=== PATIENT | female | born 1950 | race Caucasian/White ===

== ENCOUNTER → 2020-02-06 15:51 | Outpatient (BNVA) | payer MEDICARE, SELFPAY | PROVIDERS: Visit Provider Hospitalist | DX: J42 Unspecified chronic bronchitis (principal); K21.9 Gastro-esophageal reflux disease without esophagitis; R05 Cough; J45.909 Unspecified asthma, uncomplicated | CPT/HCPCS: 99212 ==

== ENCOUNTER → 2020-04-11 15:41 | Outpatient (BNVA) | payer MEDICARE, SELFPAY | PROVIDERS: Visit Provider Hospitalist | DX: K21.9 Gastro-esophageal reflux disease without esophagitis (principal); R05 Cough; R07.89 Other chest pain; J41.8 Mixed simple and mucopurulent chronic bronchitis; J45.40 Moderate persistent asthma, uncomplicated | CPT/HCPCS: 99212 ==

== ENCOUNTER → 2020-06-11 15:42 | Outpatient (BNVA) | payer MEDICARE, SELFPAY | PROVIDERS: Visit Provider Hospitalist | DX: K21.9 Gastro-esophageal reflux disease without esophagitis (principal); J41.8 Mixed simple and mucopurulent chronic bronchitis; R91.8 Other nonspecific abnormal finding of lung field | CPT/HCPCS: 99212 ==

== ENCOUNTER → 2021-07-17 15:51 | Outpatient (BNVA) | payer MEDICARE, SELFPAY | PROVIDERS: Visit Provider Hospitalist | DX: J41.8 Mixed simple and mucopurulent chronic bronchitis (principal); R91.8 Other nonspecific abnormal finding of lung field; K21.9 Gastro-esophageal reflux disease without esophagitis; R05.9 Cough, unspecified | CPT/HCPCS: 99212 ==

== ENCOUNTER → 2021-10-16 15:43 | Outpatient (BNVA) | payer MEDICARE, SELFPAY | PROVIDERS: Visit Provider Hospitalist | DX: J41.8 Mixed simple and mucopurulent chronic bronchitis (principal); R91.8 Other nonspecific abnormal finding of lung field; K21.9 Gastro-esophageal reflux disease without esophagitis; Z79.899 Other long term (current) drug therapy | CPT/HCPCS: 99212 ==

== ENCOUNTER 2023-04-07 08:22 | Outpatient (AMB) | payer MEDICARE, SELFPAY ==
[2023-04-07 08:27] VITALS: BP 120/68; PULSE 64; O2SAT 96; BMI 27.5
--- NOTE | 2023-04-07 08:27 | A.OFFVIS_ITS ---
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 The her cough is persistent and nonproductive. She was ultimately evaluated during the winter time was placed inhalers. Only partial improvement. However, more recently her cough changed became more productive and she became more short of breath. She was evaluated at an urgent care. There she had an x-ray with demonstrating an opacity in the right lower lobe area. Therefore she was started on azithromycin and also given prednisone 60 mg x 5 6 days. She took this with again partial resolution of the symptoms. She still has a cough and she still having issues with fevers. At some point she did have a swab for covid 19. In that today came back negative. On examination she still having wheezing. I do not appreciate any crackles or any rhonchi. We did look at her blood work demonstrating leukocytosis no significant eosinophilia. Her IgE level was normal and he 10/20/2021 the patient is here for pulmon mariana follow-up visit. Overall the patient has been doing better. She was having episodes of chest discomfort. Although the symptoms have now improved. She did have a chest x-ray at her local hospital demonstrating no acute disease. We do have the x-ray available as well to review. The patient overall has been doing a lot better from res piratory status. She has no longer using the Trelegy. Will go ahead and put her on Symbicort. The patient is able to use it as needed to try to minimize inhaled steroids. In the meantime we did review her last CT scan which was about 6 months ago demonstrating pulmonary nodules. The patient will require a repeat CT scan in 6 months to follow-up with the pulmonary nodules. The patient also continues with Daliresp. It is helping her chronic bronchitis. She will continue it at this time. 04/07/2023 the patient is here for a pulmo handy follow-up visit. Overall the patient is doing well from a respiratory status. Her current regimen which includes Trelegy, Daliresp and Singulair seems to be very effective for her. Although sometimes she does take Symbicort on top of that. Explained to her that they will be over medicating herself. Therefore we will discontinue the Symbicort and she can use Ventolin as needed. The patient has been dealing with some issues with hypoglycemia. She is gotten so low that she has actually had seizure. 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 We did review her last CT scan of the chest that was back in March 2022 which demonstrated multiple pulmonary nodules largest 1 measuring about 5.1 mm. Therefore, the patient needs to have a repeat CT scan. Although with everything going on right now she is being evaluated for the hypoglycemia will hold off until next year. If she develops any worsening respiratory symptoms or any other constitutional symptoms then she can always call and we can request that at an earlier date. [facility] Medical History (Updated 04/07/23 @ 08:29 by Matthew Morrow MD) Pulmonary nodules Chest pain Cough GERD (gastroesophageal reflux disease) Asthma Chronic bronchitis Social History (Updated 07/17/21 @ 16:00 by KIRA Mckenna) Patient Tobacco Use Status: Never used Tobacco Review of Systems Const Reports fatigue, Denies night sweats and Reports weight loss ENT Denies change in voice, Denies lip swelling, Denies mouth pain, Reports nasal congestion, Reports nasal discharge and Denies tongue swelling Card Denies chest pain and Denies dyspnea on exertion Resp Reports cough and Denies dyspnea on exertion GI Denies abdominal pain Musc Denies no additional complaints Neuro Denies Neuro-related abnormal movements Psych Denies no additional complaints Endo Reports as per HPI and Reports fatigue Boogie/Lymph Denies easy bleeding and Denies lymphadenopathy Aller/Immun Denies lip swelling and Denies tongue swelling Physical Exam Vital Signs: Last Vital Signs Pulse 64 04/07/23 08:27 BP 120/68 04/07/23 08:27 Pulse Ox 96 04/07/23 08:27 Oxygen Delivery Method Room Air 04/07/23 08:27 BMI result Body Mass Index 27.5 Const General: alert Neck Neck: Yes normal visual inspection, Yes full ROM and Yes no lymphadenopathy Chest Chest palpation & inspection: normal inspection of the chest Resp Effort & Inspection: normal respiratory effort Auscultation: clear to auscultation bilaterally and no wheezes Cardio Rate: regular rate Rhythm: regular rhythm Heart sounds: S1 normal heart sound present and S2 normal heart sound present GI Palpation (GI): Soft to palpation and nontender Auscultation: normal bowel sounds Skin General skin exam: rashes and/or lesions noted Assessment & Plan Assessment & Plan (1) Chronic bronchitis: Code(s): J42 - Unspecified chronic bronchitis Qualifiers: Chronic bronchitis type: mixed simple and mucopurulent Qualified Code(s): J41.8 - Mixed simple and mucopurulent chronic bronchitis (2) GERD (gastroesophageal reflux disease): Code(s): K21.9 - Gastro-esophageal reflux disease without esophagitis Qualifiers: Esophagitis presence: without esophagitis Qualified Code(s): K21.9 - Gastro-esophageal reflux disease without esophagitis (3) Pulmonary nodules: Code(s): R91.8 - Other nonspecific abnormal finding of lung field (4) Cough: Code(s): R05 - Cough Qualifiers: Cough type: chronic Qualified Code(s): R05.3 - Chronic cough Plan coTrelegy continue Daliresp daily Reflux diet Start ipratropium nasal spray stop pseudophed Recommend repeating the CT scan in 6 months Follow-up in 6 months Orders: Orders CT chest wo IV con 11 Months R91.8 - Other nonspecific abnormal finding of lung field Medications: Changed From roflumilast (Daliresp) 500 mcg PO DAILY 90 tabs 0RF To roflumilast (Daliresp) 500 mcg PO DAILY 30 days 30 tabs 3RF Refilled lrknxmasiiq-fwugfkvxq-yforwfej 200-62.5-25 mcg (Trelegy Ellipta) 1 inh inhalation DAILY 90 days 3 ea 3RF montelukast 10 mg PO DAILY 90 tabs 3RF Coding Level of Care Code Est Pt Level 4 (30188) Diagnoses Mixed simple and mucopurulent chronic bronchitis J41.8 Chronic bronchitis type: mixed simple and mucopurulent Gastroesophageal reflux disease without esophagitis K21.9 Esophagitis presence: without esophagitis Pulmonary nodules R91.8 Chronic cough R05.3 Cough type: chronic Time Spent (min) 17
== END 2023-04-07 08:54 | disposition home or self-care (01) ==
PROVIDERS: Visit Provider Hospitalist
DX: J41.8 Mixed simple and mucopurulent chronic bronchitis (principal); K21.9 Gastro-esophageal reflux disease without esophagitis; R91.8 Other nonspecific abnormal finding of lung field; R05.3 Chronic cough
CPT/HCPCS: 99214

== ENCOUNTER → 2023-04-07 08:22 | Outpatient (BNVA) | payer MEDICARE, SELFPAY | PROVIDERS: Visit Provider Hospitalist | DX: J41.8 Mixed simple and mucopurulent chronic bronchitis (principal); K21.9 Gastro-esophageal reflux disease without esophagitis; R91.8 Other nonspecific abnormal finding of lung field; R05.3 Chronic cough | CPT/HCPCS: 99212 ==

== ENCOUNTER 2024-03-29 08:42 | Outpatient (AMB) | payer MEDICARE, SELFPAY ==
[2024-03-29 08:44] VITALS: BP 122/78; PULSE 73; O2SAT 95; BMI 31.6
--- NOTE | 2024-03-29 08:44 | MHC.OFFVIS ---
Vital Signs 03/29/24 08:44 Height 4 ft 11 in Weight 156 lb 8.451 oz BMI 31.6 BP 122/78 Blood Pressure Location Rt brachial Position Sitting Pulse 73 Pulse Source Pulse Oximeter Pulse Oximetry (%) 95 Oxygen Delivery Method Room Air Intake Visit Reasons: COPD Allergies PCN Allergy (Severe, Uncoded 03/29/24 08:50) Anaphylaxis HPI Comments Details: The patient is a 73-year-old woman with a known history of asthma or apparently has not been doing well since the winter time. The her cough is persistent and nonproductive. She was ultimately evaluated during the winter time was placed inhalers. Only partial improvement. However, more recently her cough changed became more productive and she became more short of breath. She was evaluated at an urgent care. There she had an x-ray with demonstrating an opacity in the right lower lobe area. Therefore she was started on azithromycin and also given prednisone 60 mg x 5 6 days. She took this with again partial resolution of the symptoms. She still has a cough and she still having issues with fevers. At some point she did have a swab for covid 19. In that today came back negative. On examination she still having wheezing. I do not appreciate any crackles or any rhonchi. We did look at her blood work demonstrating leukocytosis no significant eosinophilia. Her IgE level was normal and he 10/20/2021 the patient is here for pulmonary follow-up visit. Overall the patient has been doing better. She was having episodes of chest discomfort. Although the symptoms have now improved. She did have a chest x-ray at her local hospital demonstrating no acute disease. We do have the x-ray available as well to review. The patient overall has been doing a lot better from respiratory status. She has no longer using the Trelegy. Will go ahead and put her on Symbicort. The patient is able to use it as needed to try to minimize inhaled steroids. In the meantime we did review her last CT scan which was about 6 months ago demonstrating pulmonary nodules. The patient will require a repeat CT scan in 6 months to follow-up with the pulmonary nodules. The patient also continues with Daliresp. It is helping her chronic bronchitis. She will continue it at this time. 04/07/2023 the patient is here for a pulmonary follow-up visit. Overall the patient is doing well from a respiratory status. Her current regimen which includes Trelegy, Daliresp and Singulair seems to be very effective for her. Although sometimes she does take Symbicort on top of that. Explained to her that they will be over medicating herself. Therefore we will discontinue the Symbicort and she can use Ventolin as needed. The patient has been dealing with some issues with hypoglycemia. She is gotten so low that she has actually had seizure. 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 We did review her last CT scan of the chest that was back in March 2022 which demonstrated multiple pulmonary nodules largest 1 measuring about 5.1 mm. Therefore, the patient needs to have a repeat CT scan. Although with everything going on right now she is being evaluated for the hypoglycemia will hold off until next year. If she develops any worsening respiratory symptoms or any other constitutional symptoms then she can always call and we can request that at an earlier date. 03/29/2024 the patient is here for a pulmonary follow-up visit. Overall she is doing okay from a respiratory status. The Trelegy is very expensive for her now. In addition to that she has been taking the Daliresp that is been very affecting beneficial. She finds that if she misses a dose her symptoms do come back. At this point will go ahead and deescalate her respiratory inhalers since she does not need the Trelegy anymore will switch over to Wixela. In the meantime we did try to get her a CT scan but it was not approved by the insurance company. We did review her previous CT scans from 2022 and 2020 demonstrating stable pulmonary nodules and therefore does not need additional imaging studies at this time. Will hold off. Her major issues back pain. She is following a pain specialist closer to where she works. She is going to look into alternative therapies. [facility] Medical History (Updated 04/07/23 @ 08:29 by Matthew Morrow MD) Pulmonary nodules Chest pain Cough GERD (gastroesophageal reflux disease) Asthma Chronic bronchitis Social History Patient Tobacco Use Status: Never used Tobacco Review of Systems Const Reports fatigue, Denies night sweats and Reports weight loss ENT Denies change in voice, Denies lip swelling, Denies mouth pain, Reports nasal congestion, Reports nasal discharge and Denies tongue swelling Card Denies chest pain and Denies dyspnea on exertion Resp Reports cough and Denies dyspnea on exertion GI Denies abdominal pain Musc Reports as per HPI and Reports back pain Neuro Denies Neuro-related abnormal movements Psych Denies no additional complaints Endo Reports as per HPI and Reports fatigue Boogie/Lymph Denies easy bleeding and Denies lymphadenopathy Aller/Immun Denies lip swelling and Denies tongue swelling Physical Exam Vital Signs: Last Vital Signs Pulse 73 03/29/24 08:44 BP 122/78 03/29/24 08:44 Pulse Ox 95 03/29/24 08:44 Oxygen Delivery Method Room Air 03/29/24 08:44 BMI result Body Mass Index 31.6 Const General: alert Neck Neck: Yes normal visual inspection, Yes full ROM and Yes no lymphadenopathy Chest Chest palpation & inspection: normal inspection of the chest Resp Effort & Inspection: normal respiratory effort Auscultation: clear to auscultation bilaterally and no wheezes Cardio Rate: regular rate Rhythm: regular rhythm Heart sounds: S1 normal heart sound present and S2 normal heart sound present GI Palpation (GI): Soft to palpation and nontender Auscultation: normal bowel sounds Skin General skin exam: no rashes or lesions noted Assessment & Plan Assessment & Plan (1) Chronic bronchitis: Code(s): J42 - Unspecified chronic bronchitis Category: Medical Qualifiers: Chronic bronchitis type: mixed simple and mucopurulent Qualified Code(s): J41.8 - Mixed simple and mucopurulent chronic bronchitis (2) GERD (gastroesophageal reflux disease): Code(s): K21.9 - Gastro-esophageal reflux disease without esophagitis Category: Medical Qualifiers: Esophagitis presence: without esophagitis Qualified Code(s): K21.9 - Gastro-esophageal reflux disease without esophagitis (3) Pulmonary nodules: Code(s): R91.8 - Other nonspecific abnormal finding of lung field Category: Medical (4) Cough: Code(s): R05 - Cough Category: Medical Qualifiers: Cough type: chronic Qualified Code(s): R05.3 - Chronic cough Plan stop Trelegy continue Daliresp daily Reflux diet Ipratropium nasal spray Follow-up in 10-12 months Medications: New fluticasone propion-salmeterol 250-50 mcg/dose (Wixela Inhub) 1 inh inhalation Q12H 60 ea 11RF 30 days Coding Level of Care Code Est Pt Level 4 (90959) Diagnoses Mixed simple and mucopurulent chronic bronchitis J41.8 Chronic bronchitis type: mixed simple and mucopurulent Gastroesophageal reflux disease without esophagitis K21.9 Esophagitis presence: without esophagitis Pulmonary nodules R91.8 Chronic cough R05.3 Cough type: chronic Time Spent (min) 16
--- OUTSIDE RECORDS SUMMARY | 2024-03-29 09:25 | XMS_ITS | Clinical Summary ---
Author Organization [facility] Address [address] [facility] [address] [place] [address] Phone Care Team Providers Care Attorney Law Clerk Name Role Phone AutomaticallyONE, SignedONE Unavailable [phone] Conditions or Problems Problem Name Problem Code Onset Date Status Entry Date Provider Comment Standard Description Annotate ASTHMA 171043002 (SNOMED CT) 09/10 Active 09/11 Rosario Escalona MD Asthma HYPERTENSION 22446516 (SNOMED CT) 09/10 Active 09/11 Rosario Escalona MD Hypertensive disorder HYPERLIPIDEMIA 11985344 (SNOMED CT) 09/10 Active 09/11 Rosario Escalona MD Hyperlipidemia HYPOGLYCEMIA 258522322 (SNOMED CT) 09/10 Active 09/10 Rosario Escalona MD Hypoglycemia EPILEPSY 46257174 (SNOMED CT) 05/25 Active 05/25 Natalie Lugo MD Epilepsy Medications Medication Instructions Start Date Stop Date Generic Name ND Provider DEXCOM G7 SENSOR Apply 1 device to skin every 10 days blood-glucose sensor 62138426844 Rosario Escalona MD DEXCOM G7 SENSOR Apply 1 device to skin every 10 days DX E16.2 blood-glucose sensor 34265260501 Rosario Escalona MD ACARBOSE 50 MG TABS Take 1 tablet by mouth three times a day acarbose 45929498278 Rosario Escalona MD DEXCOM G7 SENSOR Apply 1 device to skin every 10 days blood-glucose sensor 59745943768 Rosario Escalona MD DEXCOM G7 SENSOR blood-glucose sensor 45186447430 Rosario Escalona MD ALBUTEROL SULFATE (2.5 MG/3ML) 0.083% NEBU Inhale 1 vial using nebulizer as directed albuterol sulfate 57875434526 Rosraio Escalona MD BELBUCA 75 MCG FILM Apply 1 film in mouth PRN buprenorphine hcl 25971613936 Rosario Escalona MD DICLOFENAC SODIUM 75 MG TBEC 1 by mouth PRN diclofenac sodium 26320029706 Rosario Escalona MD GABAPENTIN 100 MG CAPS Take 1 capsule by mouth PRN gabapentin 91929013405 Rosario Escalona MD GABAPENTIN 600 MG TABS Take 1 tablet by mouth twice a day gabapentin 65697042523 Rosario Escalona MD LOSARTAN POTASSIUM 50 MG TABS Take 1 tablet by mouth once a day losartan 39471244278 Rosario Escalona MD MELOXICAM 15 MG TABS Take 1 tablet by mouth once a day meloxicam 79391177428 Rosario Escalona MD PRAVASTATIN SODIUM 20 MG TABS Take 1 tablet by mouth once a day pravastatin 36694922741 Rosario Escalona MD ROFLUMILAST 500 MCG TABS Take 1 tablet by mouth once a day roflumilast 92360490975 Rosario Escalona MD SYMBICORT 160-4.5 MCG/ACT AERO Inhale 2 puff as directed twice a day budesonide-formo terol 98076667147 Rosario Escalona MD TRELEGY ELLIPTA 200-62.5-25 MCG/ACT AEPB Inhale 1 puff as directed once a day fluticasone-umec lidin-vilanter 60582852635 Rosario Escalona MD LEVETIRACETAM 750 MG TABS Take 1 tablet by mouth twice a day levetiracetam 37647579201 Natalie Lugo MD LEVETIRACETAM 1000 MG TABS Take 1 tablet by mouth twice a day levetiracetam 42604443656 Natalie Lugo MD LEVETIRACETAM 750 MG TABS Take 1 tablet by mouth twice a day levetiracetam 25289473357 Natalie Lugo MD Medications Administered No information available. Allergies, Adverse Reactions, Alerts Allergy Name Reaction Description Start Date Severity Statu s Provider PCN Critical Rosario caldera MD LATEX Moderate Rosario caldera MD Results Date Name Value Unit Range Flag Description Office Visit: Neuro Comp Vis it LAB RESULTS Reviewed all available outside notes. lab results, general Clinical Lists Update T4, FREE 0.99 ng/dL Thyroxine (T 4) free [Mass/volume] in Serum or Plasma TSH ULTRA 0.678 u[iU]/mL thyroid stimulating hormone (TSH), ultra sensitive CO2 TOTAL 26 mmol/L carbon dioxide, serum, total CL SERUM 107 meq/L Chloride [Moles/volume] in Serum or Plasma K SERUM 4.0 meq/L Potassium [Moles/volume] in Serum or Plasma SODIUM 143 mmol/L Sodium [Moles/volume] in Serum or Plasma CREATININE 0.9 mg/dL Creatinine [Mass/volume] in Serum or Plasma BUN 26 mg/dL Urea nitrogen [Mass/volume] in Serum or Plasma Replaced Document: INSULIN / LOC:[facility]SE [facility]FA[facility] INSULIN 11.0 MU/L u[iU]/mL 2.6-37.6 insulin, serum Lab Report: GLUCOSE / LOC:SAMIRA FISCHER BG RANDOM 46 mg/dL 70-99 LL Glucose [Mass/volume] in Blood Lab Report: CORTISOL LEVEL,3 0 MINUTES / LOC:JO[facility]FA[facility] CORTISOL 30M 29.17 ug/dL cortisol , serum, 30 minutes after stimulation Lab Report: CORTISOL LEVEL,6 0 MINUTES / LOC:JO[facility] RAFA[facility] CORTISOL 60M 32.33 ug/dL cortisol , serum, 60 minutes after stimulation Lab Report: CORTISOL LEVEL,P RE / LOC:[facility]FA[facility] ADRENOCORTICOTROPIC HORMONE / ... ACTH 31.9 pg/mL 6-50 corticotropin , plasma Plan of Care Type Date Detail Pending order Adrenocorticotro pic Hormone Pending order Cortisol, Serum Pending order Insulin Antibody Pending order Sulfonylurea Scr een Pending order Free T4 Pending order Insulin, Serum Pending order Basic Metabolic Panel Pending order Beta-Hydroxybuty rate Pending order Proinsulin Pending order Thyroid Stimulat ing Hormone Pending order Patient encounte r procedure Pending order C-Peptide Pending order Patient encounte r procedure Pending order MRI Brain w/o&w Hima Pending order MRI Brain w/o&w Hima Pending order Patient encounte r procedure Procedures Code Procedure Name Date Entry Date [id number] Ambulatory continuou s glucose monitoring; Diagnostic sensor Placement/Pt Train Vital Signs Date Name Value Unit Description BMI (Body Mass Index) 29.01 kg/m2 Bod y Mass Index (Ratio) BP Diastolic 67 mm[Hg] blood pressu re, diastolic BP Systolic 122 mm[Hg] blood pressur e, systolic Heart Rate 74 /min pulse rate Height 60 [in_us] height E&M Height 152.4 cm height in cent imeters E&M Weight Measured 67.27 kg weight in kilograms E&M Weight Measured 148 [lb_av] weight E& M BP Diastolic 77 mm[Hg] blood pressu re, diastolic, left arm BP Systolic 137 mm[Hg] blood pressur e, systolic, left arm BP Diastolic 76 mm[Hg] blood pressu re, diastolic, right arm BP Systolic 121 mm[Hg] blood pressur e, systolic, right arm Immunizations No information available. Advance Directives No information available.
--- OUTSIDE RECORDS SUMMARY | 2024-03-29 09:25 | XMS_ITS | Data Portability ---
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 We reviewed PMHX, diet recall, motivations, barriers, goals, and approaches. MNT education was provided; pt was engaged and receptive to education. 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 Written Materials Provided: Carb amounts in various non-starchy vegetables Hypoglycemia MNT Educator Assessed Learning Barriers: none ? P atient? was given contact information for additional questions or concerns. Thank you for the opportunity to participate in your patient? s care Not available 06/25/2023 10:44:04 Plan of Treatment Reminders Order Date Submit Date Provider Last Modified By Organization Details Last Modified Time Details Appointments None recorded. Lab rapid flu (A+B) 2021 022 [facility], [address] [place], [address], 14:21:47 SARS CoV 2 RNA (COVID-19), QL, voucher clerk-PCR, respiratory specimen 2021 022 [facility], [address] , [place], [address], 2 08:44:15 urinalysis, dipstick [email or web address], [address], [place] [address], [place], [address], 4 14:32:46 Referral None recorded. Procedures pulse oximetry (PROC) 2021 022 [facility], [address], [place], [address], 2 14:22:56 Surgeries None recorded. Imaging XR, hand, 3 or more view 2021 022 [email or web address] 9 [facility], [address] , [place], [address], 2 14:39:34 XR, wrist, 3 or more view 2021 022 [email or web address] 9 [facility], [address] , [place], [address], 2 14:39:34 XR, chest, 2 view [email or web address] (Central Scheduling), [address] , [place], [address], 2 11:12:31 US, bladder 2023 024 [facility], [address] , [address], [place], [address], 4 15:31:22 Medication Orders Zithromax Z-Chencho 250 mg tablet 2021 022 [email or web address] [email or web address] [id number], [address] , [place], [address], 4 13:54:51 prednisone 50 mg tablet 2021 022 [email or web address] [id number], [address] [place], [address], 4 13:58:34 Ditropan XL 10 mg tablet,exte nded release 2023 024 [email or web address] [id number], [address] [place], [address], 14:21:05 Patient Targets Encounter Date Encounter Id Patient Goals Patient Target Last Modified By Organization Details Last Modified Time 1. Limit Hypoglycemic events2. Lest dietary restriction possible Not available 06/25/2023 10:43:53 Patient Instructions Encounter Date Encounter Id Patient Instructions Last Modified By Organization Details Last Modified Time 07/20/2021 [id number] You have had an Urgent Care Visit which is designed to address acute issues. It does not represent an exhaustive evaluation of your symptom complex, but is an attempt to treat and manage the most likely cause of your most pressing physical issues. If you are not improved in the time frame that we have discussed, please seek the advice of your PCP who is in a position to order further diagnostic testing and possible specialist consultation. If you are rapidly deteriorating despite the treatment recommendations please do not wait to see your PCP and do proceed to the closest ER where a comprehensive evaluation including consideration to lab and other diagnostic testing as well as consultation is more expeditiously accessible. If you were prescribed medications they have been directly submitted to your pharmacy on file. Please make sure you finish all your medications and if you develop major side effects related to them please do stop taking them and check with your PCP to see if you need to get an alternative medication. If labs or xray were ordered, we will call you with the results if there is any change to your plan of care. You have had an Urgent Care Visit which is designed to address acute issues. It does not represent an exhaustive evaluation of your symptom complex, but is an attempt to treat and manage the most likely cause of your most pressing physical issues. [email or web address] Not available 07/20/2021 13:52:29 08/10/2021 [id number] Get plenty of rest. Drink plenty of fluids, enough so that your urine is light yellow or clear like water. If you have kidney, heart, or liver disease and have to limit fluids, talk with your doctor before you increase the amount of fluids you drink. Take an wkta-ltd-fcaqtxl pain medicine if needed, such as acetaminophen (Tylenol), ibuprofen (Advil, Motrin), or naproxen (Aleve), to relieve fever, headache, and muscle aches. Read and follow all instructions on the label. No one younger than 20 should take aspirin. It has been linked to Lori syndrome, a serious illness. Do not smoke. Smoking can make the flu worse. If you need help quitting, talk to your doctor about stop-smoking programs and medicines. These can increase your chances of quitting for good. Breathe moist air from a hot shower or from a sink filled with hot water to help clear a stuffy nose. Before you use cough and cold medicines, check the label. These medicines may not be safe for young children or for people with certain health problems. If the skin around your nose and lips becomes sore, put some petroleum jelly on the area. To ease coughing: Drink fluids to soothe a scratchy throat. Suck on cough drops or plain hard candy. Take an mgnw-evj-ztfdkwj cough medicine that contains dextromethorphan to help you get some sleep. Read and follow all instructions on the label. Raise your head at night with an extra pillow. This may help you rest if coughing keeps you awake. Take any prescribed medicine exactly as directed. Call your doctor if you think you are having a problem with your medicine. To avoid spreading the flu Wash your hands regularly, and keep your hands away from your face. Stay home from school, work, and other public places until you are feeling better and your fever has been gone for at least 24 hours. The fever needs to have gone away on its own without the help of medicine. Ask people living with you to talk to their doctors about preventing the flu. They may get antiviral medicine to keep from getting the flu from you. To prevent the flu in the future, get a flu vaccine every fall. Encourage people living with you to get the vaccine. Cover your mouth when you cough or sneeze. [email or web address] Not available 08/10/2021 15:41:19 You have had an Urgent Care Visit which is designed to address acute issues. It does not represent an exhaustive evaluation of your symptom complex, but is an attempt to treat and manage the most likely cause of your most pressing physical issues. If you are not improved in the time frame that we have discussed, please seek the advice of your PCP who is in a position to order further diagnostic testing and possible specialist consultation. If you are rapidly deteriorating despite the treatment recommendations please do not wait to see your PCP and do proceed to the closest ER where a comprehensive evaluation including consideration to lab and other diagnostic testing as well as consultation is more expeditiously accessible. If you were prescribed medications they have been directly submitted to your pharmacy on file. Please make sure you finish all your medications and if you develop major side effects related to them please do stop taking them and check with your PCP to see if you need to get an alternative medication. If labs or xray were ordered, we will call you with the results if there is any change to your plan of care. [email or web address] Not available 08/10/2021 15:39:30 06/09/2023 [id number] Follow Up as needed Not avail able 06/09/2023 16:30:48 Recommendations: 1. Increase fluid intake 2. Continue MVI 3. Add fiber supplement if needed 4. Try not to go more than 3-4 hours without eating anything 5. Stick to your 10 g Carb per day 6. Trial More vegetables alone and then eating eating a protein first 7. Any time possible, eat your protein first Not available 06/25/2023 10:44:00 11/22/2023 [id number] This patient has overactive bladder which affects 33 million people [place] yearly. 90% of these are women and include frequency urgency nocturia and urgency incontinence. An anticholinergic Ditropan XL 10 mg p.o. nightly has worked wonders for these patients. Unguinal start follow-up with a TeleMed in 6 weeks to see how well she is doing [email or web address] Not available 11/22/2023 14:21:29 12/24/2023 [id number] This patient has overactive bladder at secondary possibly to a back issue. I will continue the Ditropan XL 10 mg p.o. nightly at this point as this can still help bladder symptoms secondary to radiculopathy. She is due to get an MRI and we will follow-up with a repeat TeleMed in 1 month to go over the results. [email or web address] Not available 12/24/2023 13:26:48 Reason for Referral None Reported. Results Created Date Observation Date Name Description Value Unit Range Abnormal Flag Note LastModifiedBy Organization Detail LastModifiedTime 08/11/19 22 08/11/2021 SARS- COV-2 (NAAT ) sars-cov-2 NOT DETECT ED not detect . The Aptim a SARS- CoV-2 assay is a nucle ic acid ampli ficat ion in vitro diagn ostic test inten ded for the quali tativ e detec tion of RNA from SARS- CoV-2 using Trans cript ion Media jossue Ampli ficat ion (TMA) isola jossue and purif ied from nasop haryn geal (EVENT OPERATIONS MANAGER), nasal , mid-t urbin ate, and oroph aryng eal (OP) swab speci mens obtai alla from indiv idual s meeti ng COVID -19 clini gayle and/o r epide miolo gical crite raul. The Aptim a TMA metho d is equiv alent in sensi tivit y and speci ficit y to metho ds utili zing PCR and RT-PC R. Resul ts are for the ident ifica tion of SARS- CoV-2 RNA which is gener ally detec table in upper respi rator y sampl es durin g the acute phase of infec tion. Posit jennifer resul ts are indic ative of the prese nce of SARS- CoV-2 RNA; clini gayle corre latio n with patie nt histo ry and other diagn ostic infor matio n is neces pia to deter mine patie nt infec tion statu s. Posit jennifer resul ts do not rule out bacte rial infec tion or co-in fecti on with other virus es. Negat jennifer resul ts do not precl ude SARS- CoV-2 infec tion and shoul d not be used as the sole basis for patie nt manag ement decis ions. Negat jennifer resul ts must be combi alla with clini gayle obser vatio ns, patie nt histo ry, and epide miolo gical infor matio n. The Aptim a SARS- CoV-2 assay is only for use under the Food and Drug Admin istra tion' s Emerg ency Use Autho jerome harkins (EUA) . Not Available [facility] [address] [place], [address] 08/11/2021 08:44:15 08/11/19 22 08/10/2021 pulse oxime try (PROC ) Unknown Analyte 83 Not Available [facility] [address] [place] [address], [address], 08/10/2021 14:05:32 08/11/19 22 08/10/2021 pulse oxime try (PROC ) Unknown Analyte 95 Not Available [facility] [address] [place] [address], [address], 08/10/2021 14:05:32 08/11/19 22 08/10/2021 pulse oxime try (PROC ) Unknown Analyte sittin g Not Available [facility] [address] [place] [address], [address], 08/10/2021 14:05:32 08/11/19 22 08/10/2021 pulse oxime try (PROC ) Unknown Analyte room air Not Available [facility] [address], [address], 08/10/2021 14:05:32 08/11/19 22 08/10/2021 rapid flu (A+B) Flu Type A negati ve Not Available [facility] [address], [address], 08/10/2021 14:06:18 08/11/19 22 08/10/2021 rapid flu (A+B) Flu Type B negati ve Not Available [facility] [address], [address], 08/10/2021 14:06:18 08/11/19 22 08/10/2021 rapid flu (A+B) Lot# [id number] Not Available [facility] [address] [facility], [place], [address], 08/10/2021 14:06:18 08/11/19 22 08/10/2021 rapid flu (A+B) Internal Control Valid Not Available [facility] [address] [facility], [place], [address], 08/10/2021 14:06:18 11/22/19 24 11/22/2023 urina lysis , dipst ick Specific [place] 1.010 Not Available [place] [address], [place], [address], 11/22/2023 14:02:37 11/22/19 24 11/22/2023 urina lysis , dipst ick PH 5.0 Not Available [address] [address], [address], 11/22/2023 14:02:37 11/22/19 24 11/22/2023 urina lysis , dipst ick Leukocytes Trace Not Available [address] [address], [address], 11/22/2023 14:02:37 11/22/19 24 11/22/2023 urina lysis , dipst ick Nitrite negati ve Not Available [address] [address], [address], 11/22/2023 14:02:37 11/22/19 24 11/22/2023 urina lysis , dipst ick Protein Negati ve Not Available [facility] [address] [address], [address], 11/22/2023 14:02:37 11/22/19 24 11/22/2023 urina lysis , dipst ick Glucose Normal Not Available [address] [address], [address], 11/22/2023 14:02:37 11/22/19 24 11/22/2023 urina lysis , dipst ick Ketone Normal Not Available [address] [place], [address], 11/22/2023 14:02:37 11/22/19 24 11/22/2023 urina lysis , dipst ick Urobilinogen Normal Not Available [address] [place], [address], 11/22/2023 14:02:37 11/22/19 24 11/22/2023 urina lysis , dipst ick Bilirubin Negati ve Not Available [address] [place], [address], 11/22/2023 14:02:37 11/22/19 24 11/22/2023 urina lysis , dipst ick Blood Negati ve Not Available [address], [address], 11/22/2023 14:02:37 07/21/19 22 07/20/2021 XR, hand, 3 or more view [facility] [address] [place] [address] XRay Report Signed Patien t: Avril Perdomo MR#: [id number] : 1950 Acct:H [id number] Age/Se x: 71 / F ADM Date: Loc: [facility] RA Attend ing Dr: Hakeem Christopher ([facility] EVENT OPERATIONS MANAGER Orderi ng Physic chemo: Hakeem Christopher, EVENT OPERATIONS MANAGER Date of Servic e: Proced ure(s) : XR hand LT min 3V Access ion Number (s): [id number] H cc: Sherry Romero EXAM: XR hand LT min 3V CLINIC AL INDICA TION: INJURY /FALL COMPAR GABRIEL: None FINDIN GS: No fractu re. Normal alignm ent. Decrea sed bone minera lizati on. No suspic ious osseou s lesion . Joint spaces well-m aintai alla. No erosio ns. Margin al spurri ng 2nd and 3rd DIP joints . Modera te degene rative change s 1st CMC joint, loss of joint space, subart icular sclero sis and margin al spurri ng. Electr onical ly Signed in [place] cribe By ROQUE Francois MD, 025 XR/XR hand LT min 3V IMPRES SAJI: No left hand fractu re. Mild osteoa rthrit is left hand. Dictat ed By: Roque francois Signed By: 1245 DD/DT: 1246 TD/TT: 1246 Transc riptio nist: [email or web address] [facility] [address] [place] [address], [address], 07/20/2021 12:51:43 07/21/19 22 07/20/2021 XR, wrist , 3 or more view [facility] [address] [place] [address]. [place] [address] XRay Report Signed Patien t: Avril Perdomo MR#: [id number] : 1950 Acct:H [id number] Age/Se x: 71 / F ADM Date: Loc: [facility] RA Attend ing Dr: Hakeem Christopher ([facility]) EVENT OPERATIONS MANAGER Orderi ng Physic chemo: Hakeem Christopher, EVENT OPERATIONS MANAGER Date of Servic e: Proced ure(s) : XR wrist LT min 3V Access ion Number (s): [id number] H cc: Sherry Romero EXAM: XR wrist LT min 3V CLINIC AL INDICA TION: FALL/P AIN BASE OF THUMB COMPAR GABRIEL: None FINDIN GS: No fractu re. Decrea sed bony minera lizati on. No suspic ious osseou s lesion . Modera te degene rative change s 1st CMC joint, with loss of joint space, subcho ndral sclero sis and margin al spurri ng. Soft tissue s appear normal . Electr onical ly Signed in [place] By ROQUE Francois MD, MD 026 XR/XR wrist LT min 3V IMPRES SAJI: No left wrist fractu re identi fied. Modera te degene rative change s base of thumb at 1st CMC joint. Dictat ed By: Roque francois Signed By: 1254 DD/DT: 1246 TD/TT: 1246 Transc riptio nist: [email or web address] [facility] [address] [place], [address], 07/20/2021 13:48:01 08/12/19 22 08/10/2021 XR, chest , 2 view No observ ation record ed. [facility] ([facility] [address] [place], [address], 08/11/2021 14:56:47 11/22/19 24 11/22/2023 US, bladd er No observ ation record ed. [address] [facility] [address], [place], [address], 11/22/2023 14:32:41 02/01/20 24 12/31/2023 MRI, lumba r spine , w/o contr ast No observ ation record ed. [address], [address], 02/02/2024 08:15:57 Result Notes None recorded. Problems Name Problem SNOMED Code Status Onset Date Resolution Date Notes Provider Name and Address Organization Details Recorded Time Disorder of lipid metabolism 953381014 Active 2003 Not Available [facility] 3 03:03:29 Acute stress disorder 21231965 Active 2002 Not Available [facility] 3 03:03:29 Essential hypertension 00190128 Active 2003 Not Available [facility] 3 03:03:29 Joint pain 48284329 Active 2001 Not Available [facility] 3 03:03:29 Infective otitis externa 24274302 Active 2003 Not Available [facility] 3 03:03:29 Benign essential hypertension 0271389 Active 2003 Not Available [facility] 3 03:03:29 Conjunctiviti s 0608468 Active 2002 Not Available [facility] 3 03:03:29 Enthesopathy of hip region 61496545 Active 2003 Not Available [facility] 3 03:03:29 Allergic rhinitis 85219516 Active 2002 Not Available [facility] 3 03:03:29 Asthma 956478346 Active 2002 Not Available [facility] 3 03:03:29 Osteoarthriti s 166644667 Active 2003 Not Available [facility] 3 03:03:29 Hypoglycemia 901297057 Active [address] [place] [address] [place], [address] , [facility] 10:44:40 Problem Notes None recorded. Procedures Surgical History Date Name Laterality Status Provider Name and Address Organization Details Recorded Time 12/24/19 24 Telemedicine Documentation completed John Garcia MD [address] [place] [address] [place], [address], [facility] 12/24/2023 13:26:13 06/09/19 Nutrition completed Jnaet Hernandez RD [address] [place] [address] [place], [address], [facility] 06/25/2023 10:20:55 Imaging Results Imaging Date Name Status LastModified by [facility] Details LastModified Time 07/20/2021 XR, hand, 3 or more view completed [email or web address] [facility] [address] [place], [place] [address], [address], 07/20/2021 12:51:43 07/20/2021 XR, wrist, 3 or more view completed [email or web address] [facility] [address] [place], [place] [address], [address], 07/20/2021 13:48:01 08/10/2021 XR, chest, 2 view completed [facility] ([facility]) [address], [place], [address], 08/11/2021 14:56:47 11/22/2023 US, bladder completed [address] [facility] [address], [place], [address], 11/22/2023 14:32:41 12/31/2023 MRI, lumbar spine, w/o contrast completed [facility] [address] [place], [address], 02/02/2024 08:15:57 Procedure Notes None recorded. Medical Equipment None Reported. Allergies Allergen ID Allergen Name Allergen Category Reaction Reaction Severity Criticality Documentation Date Start Date Code Code System Note Provider Name and Address Organization Details Recorded Time 595671 latex environme nt,medica tion anaphylax is Not available Not available 04/01/2017 53555 91 RxNorm KIRA Fernández [facility] 8 19:32:28 155795 Product containin g penicilli n and antibioti c (product) medicatio n Not available Not available Not available 04/01/2017 31432 05 SNOMED KIRA Fernández [facility] 8 19:32:34 Medications Name Sig Start Date Stop Date Status Note LastModified by Organization Details LastModified Time losartan 50 mg tablet TAKE ONE TABLET BY MOUTH EVERY DAY active Not Available Not Available No t Available methocarbam ol 500 mg tablet TAKE ONE TO TWO TABLETS BY MOUTH ONCE DAILY NEEDED. CAUTION SEDATION active Not Available Not Available No t Available prednisone 10 mg tablet TAKE 5 TABLETS BY MOUTH ONCE DAILY FOR 2 DAYS, THEN 4 TABS FOR 2 DAYS, 3 TABS FOR 2 DAYS, 2 TABS FOR 2 DAYS, 1 TAB FOR 2 DAYS active Not Available Not Available No t Available gabapentin 600 mg tablet TAKE 1 TABLET BY MOUTH NIGHTLY 11/21 completed Not Available Not Available Not Available lamotrigine 200 mg tablet TAKE 1 TABLET BY MOUTH TWICE A DAY 11/21 completed Not Available Not Available Not Available ipratropium 0.5 mg-albutero l 3 mg (2.5 mg base)/3 mL nebulizatio n soln Inhale 3 mL by nebulizat ion route. 2017 active Not Available Not Available Not Ravinder labtwyla nabumetone 750 mg tablet TAKE 1 TABLET TWICE DAILY WITH FOOD 04/01 completed Not Available Not Available Not Available albuterol sulfate 2.5 mg/3 mL (0.083 %) solution for nebulizatio n INHALE 1 VIAL (3 ML) ORALLY EVERY 8 HOURS NEEDED FOR FOR WHEEZING active Not Available Not Available No t Available oxybutynin chloride ER 10 mg tablet,exte nded release 24 hr TAKE ONE TABLET BY MOUTH EVERY DAY active Not Available Not Available No t Available azithromyci n 250 mg tablet TAKE 2 TABLETS BY MOUTH TODAY, THEN TAKE 1 TABLET DAILY FOR 4 DAYS 11/21 completed Not Available Not Available Not Available benzonatate 200 mg capsule TAKE 1 CAPSULE BY MOUTH THREE TIMES A DAY NEEDED 08/10 completed Not Available Not Available Not Available valacyclovi r 1 gram tablet TAKE 1 TABLET (1,000 MG TOTAL) BY MOUTH 3 TIMES A DAY FOR 7 DAYS 11/21 completed Not Available Not Available Not Available hydrocodone 5 mg-acetamin ophen 325 mg tablet TAKE 1 TABLET BY MOUTH EVERY 8 HOURS NEEDED FOR 30 DAYS active Not Available Not Available No t Available meloxicam 15 mg tablet TAKE ONE TABLET BY MOUTH EVERY DAY active Not Available Not Available No t Available prednisone 20 mg tablet TAKE 2 TABLETS DAILY FOR 5 DAYS, THEN TAKE 1 TABLET DAILY FOR 5 DAYS 11/21 completed Not Available Not Available Not Available acarbose 50 mg tablet TAKE ONE TABLET BY MOUTH THREE TIMES A DAY active Not Available Not Available No t Available Tylenol Arthritis Pain 650 mg tablet,exte nded release Take 1 tablet every 12 hours by oral route as needed for 30 days. 08/10 completed Not Available Not Available Not Available Zyrtec 10 mg tablet 08/10 completed last seen 4 Not Available Not Available Not Available metronidazo le 500 mg tablet TAKE 1 TABLET BY MOUTH EVERY 12 HOURS FOR 7 DAYS 11/21 completed Not Available Not Available Not Available amlodipine 5 mg tablet TAKE 1 TABLET BY MOUTH EVERY DAY 08/10 completed Not Available Not Available Not Available hydrocodone 10 mg-acetamin ophen 325 mg tablet TAKE ONE TABLET BY MOUTH EVERY EIGHT HOURS NEEDED active Not Available Not Available No t Available nystatin-tr iamcinolone 100,000 unit/gram-0 .1 % topical ointment APPLY TO AFFECTED AREA TWICE A DAY FOR 7 DAYS active Not Available Not Available No t Available zonisamide 100 mg capsule TAKE 4 CAPSULES BY MOUTH AT NIGHT active Not Available Not Available No t Available methocarbam ol 750 mg tablet TAKE 1 TO 2 TABLETS BY MOUTH ONCE DAILY NEEDED active Not Available Not Available No t Available erythromyci n 5 mg/gram (0.5 %) eye ointment APPLY 1/2 INCH INTO BOTH EYES 4 TIMES A DAY active Not Available Not Available No t Available prednisone 50 mg tablet TAKE ONE TABLET BY MOUTH EVERY DAY FOR 5 DAYS 11/21 completed Not Available Not Available Not Available zafirlukast 20 mg tablet TAKE 1 TABLET 1 HOUR BEFORE OR 2 HOURS AFTER MEALS TWICE A DAY ORALLY 90 DAYS 08/10 completed Not Available Not Available Not Available omeprazole 20 mg capsule,del ayed release TAKE ONE CAPSULE BY MOUTH EVERY DAY active Not Available Not Available No t Available diclofenac sodium 75 mg tablet,eufemia yed release TAKE ONE TABLET BY MOUTH TWICE A DAY NEEDED 11/21 completed Not Available Not Available Not Available montelukast 10 mg tablet TAKE ONE TABLET BY MOUTH EVERY DAY active Not Available Not Available No t Available morphine ER 15 mg tablet,exte nded release TAKE ONE TABLET BY MOUTH EVERY 12 HOURS active Not Available Not Available No t Available pravastatin 20 mg tablet TAKE ONE TABLET BY MOUTH EVERY DAY active Not Available Not Available No t Available levetiracet am 750 mg tablet TAKE 1 TABLET BY MOUTH TWICE A DAY active Not Available Not Available No t Available hydrochloro thiazide 25 mg tablet TAKE 1 TABLET BY MOUTH EVERY DAY IN THE MORNING active Not Available Not Available No t Available gabapentin 100 mg capsule TAKE TWO CAPSULES BY MOUTH THREE TIMES A DAY 11/21 completed Not Available Not Available Not Available clobetasol 0.05 % topical ointment APPLY 1 APPLICATI ON TOPICALLY NIGHTLY FOR 14 DAYS THEN 1 APPLICATI ON TWICE A WEEK TO AFFECTED AREA active Not Available Not Available No t Available levofloxaci n 500 mg tablet TAKE 1 TABLET BY MOUTH EVERY DAY FOR 10 DAYS active Not Available Not Available No t Available methylpredn isolone 4 mg tablets in a dose pack TAKE BY MOUTH DIRECTED ON PACKAGE. active Not Available Not Available No t Available albuterol sulfate HFA 90 mcg/actuati on aerosol inhaler INHALE TWO PUFFS BY MOUTH FOUR TIMES A DAY NEEDED FOR SHORTNESS OF BREATH OR WHEEZING active Not Available Not Available No t Available Nasal Decongestan t (pseudoephe drine) 30 mg tablet TAKE 2 TABLETS BY MOUTH EVERY 4 TO 6 HOURS NEEDED FOR NASAL CONGESTIO N MAX 4DOSES/DA Y active Not Available Not Available No t Available ipratropium bromide 42 mcg (0.06 %) nasal spray ADMINISTE R 2 SPRAYS INTO EACH NOSTRIL THREE TIMES A DAY NEEDED FOR ALLERGY SYMPTOMS active Not Available Not Available No t Available losartan 100 mg tablet 08/10 completed Not Available Not Available Not Available sertraline 50 mg tablet 08/10 completed Not Available Not Available Not Available doxycycline hyclate 100 mg tablet TAKE ONE TABLET BY MOUTH TWICE A DAY FOR 7 DAYS 11/21 completed Not Available Not Available Not Available azithromyci n 500 mg tablet TAKE 1 TABLET BY MOUTH EVERY DAY FOR 3 DAYS 11/21 completed Not Available Not Available Not Available cyclobenzap rine 5 mg tablet TAKE 1-2 TABLETS BY ORAL ROUTE ONCE DAILY AT BEDTIME NEEDED 11/21 completed Not Available Not Available Not Available zonisamide 25 mg capsule TAKE 3 CAPSULES BY MOUTH EVERY DAY AT BEDTIME 08/10 completed Not Available Not Available Not Available nitrofurant oin monohydrate /macrocryst als 100 mg capsule TAKE ONE CAPSULE BY MOUTH EVERY 12 HOURS FOR 5 DAYS active Not Available Not Available No t Available pregabalin 25 mg capsule TAKE ONE CAPSULE BY MOUTH TWICE A DAY 11/21 completed Not Available Not Available Not Available pregabalin 50 mg capsule TAKE ONE CAPSULE BY MOUTH TWICE A DAY 11/21 completed Not Available Not Available Not Available pregabalin 100 mg capsule TAKE ONE CAPSULE BY MOUTH EVERY 12 HOURS 11/21 completed Not Available Not Available Not Available pregabalin 225 mg capsule TAKE ONE CAPSULE BY MOUTH TWICE A DAY active Not Available Not Available No t Available magnesium 11/21 completed Not Available Not Available Not Available Co Q-10 08/10 completed Not Available Not Available Not Available omeprazole 08/10 completed Not Available Not Available Not Available hydrochloro thiazide 02/18 completed Not Available Not Available Not Available losartan 08/10 completed Not Available Not Available Not Available Chlor-Trime ton 4x daily 11/21 completed Not Available Not Available Not Available Regla 02/18 completed Not Available Not Available Not Available Sudafed Non-Drowsy 2x daily 11/21 completed Not Available Not Available Not Available multivitami n 08/10 completed Not Available Not Available Not Available levetiracet am 1,000 mg tablet TAKE 1 TABLET BY MOUTH TWICE A DAY active Not Available Not Available No t Available Symbicort 160 mcg-4.5 mcg/actuati on HFA aerosol inhaler INHALE 2 PUFFS TWICE A DAY active Not Available Not Available No t Available buprenorphi ne 5 mcg/hour weekly transdermal patch APPLY 1 PATCH TO SKIN TRANSDERM ALLY ONCE A WEEK FOR 28 DAYS 11/21 completed Not Available Not Available Not Available buprenorphi ne 10 mcg/hour weekly transdermal patch APPLY 1 PATCH TO SKIN TRANSDERM ALLY ONCE A WEEK FOR 28 DAYS 11/21 completed Not Available Not Available Not Available roflumilast 500 mcg tablet TAKE ONE TABLET BY MOUTH EVERY DAY active Not Available Not Available No t Available Breo Ellipta 100 mcg-25 mcg/dose powder for inhalation Inhale 1 puff every day by inhalatio n route. 08/10 completed Not Available Not Available Not Available Belbuca 75 mcg buccal film TAKE 1 FILM BUCALLY EVERY DAY NEEDED 11/21 completed Not Available Not Available Not Available Trelegy Ellipta 100 mcg-62.5 mcg-25 mcg powder for inhalation 1 INHALATIO N DAILY 30 DAYS active Not Available Not Available No t Available Trelegy Ellipta 200 mcg-62.5 mcg-25 mcg powder for inhalation INHALE ONE PUFF BY MOUTH EVERY DAY active Not Available Not Available No t Available Dexcom G7 Sensor device APPLY 1 SENSOR EVERY 10 DAYS DIRECTED. active Not Available Not Available No t Available Vitals Date Recorded Body weight Provider Name an d Address Organization Details Last Updated DateTime 06/09/2023 41772.54 g Janet Hernandez, RD [address] [place], [address] 06/09/2023 15:08:55 Date Recorded Body mass index (BMI) Body height Provider Name and Address Organization Details Last Updated DateTime 06/09/2023 29.1 kg/m2 152.4 cm Janet Hernandez, RD [address] [facility], [place], [address], [facility] 06/09/2023 15:08:59 Date Recorded Body height Provider Name an d Address Organization Details Last Updated DateTime 11/22/2023 152.4 [facility] 13:49:55 Date Recorded Heart rate Provider Name an d Address Organization Details Last Updated DateTime 11/22/2023 75 /[facility] 13:51:53 Date Recorded Heart rate Provider Name an d Address Organization Details Last Updated DateTime 07/20/2021 92 /min Ashleysusan King [facility] 07/20/2021 12:20:47 Date Recorded Oxygen saturation Oxygen saturation in Arterial blood by Pulse oximetry Provider Name and Address Organization Details Last Updated DateTime 07/20/2021 98 % 98 % Ashley [facility] 07/20/2021 12:20:49 Date Recorded Body temperature Provider Name a nd Address Organization Details Last Updated DateTime 07/20/2021 98.4 [degF] Ashley [facility] 07/20/2021 12:21:00 Date Recorded Body weight Provider Name an d Address Organization Details Last Updated DateTime 08/10/2021 83540.12 g Aileen short [facility] 08/10/2021 13:31:39 Date Recorded Body temperature Provider Name a nd Address Organization Details Last Updated DateTime 08/10/2021 98.6 [degF] Aileen short [facility] 08/10/2021 13:38:22 Date Recorded Oxygen saturation Oxygen saturation in Arterial blood by Pulse oximetry Provider Name and Address Organization Details Last Updated DateTime 08/10/2021 95 % 95 % Aileen Newby [facility] 08/10/2021 13:38:28 Date Recorded Heart rate Provider Name an d Address Organization Details Last Updated DateTime 08/10/2021 83 /min Aileen Forgrosa short [facility] 08/10/2021 13:38:30 Date Recorded Systolic blood pressure Diastolic blood pressure Provider Name and Address Organization Details Last Updated DateTime 11/22/2023 120 mm[Hg] 76 mm[Hg] Rik Ely [facility] 11/22/2023 13:51:46 Date Recorded Systolic blood pressure Diastolic blood pressure Provider Name and Address Organization Details Last Updated DateTime 07/20/2021 146 mm[Hg] 80 mm[Hg] Ashley King [facility] 07/20/2021 12:20:45 Date Recorded Systolic blood pressure Diastolic blood pressure Provider Name and Address Organization Details Last Updated DateTime 08/10/2021 110 mm[Hg] 72 mm[Hg] Aileen Newby [facility] 08/10/2021 13:41:24 Social History None recorded. Functional Status None recorded. Mental Status None recorded. Family History Nothing Reported. Medical History No medical history recorded. Gynecological HistoryNo gynecological history recorded. Obstetrics History GPAL:G 0 P 0 0 0 0 Past Encounters Encounter ID Performer Location Encounter Start Date Encounter Closed Date Diagnosis/Indication Diagnosis SNOMED-CT Code Diagnosis ICD10 Code Diagnosis Note [id number] [facility] [address] [address] 12/15/2001 17:56:32 10/01/2005 01:21:27 [id number] [facility] use Family [address] [address] 07/17/2002 13:04:30 10/01/2005 01:21:27 [id number] [place] use [address] [address] 09/04/2002 09:24:53 10/01/2005 01:40:42 [id number] [place] use [address] [address] 11/07/2002 10:37:56 11/07/2002 11:37:48 [id number] [facility] use Family [address] [address] 06/12/2003 16:44:29 06/12/2003 18:06:59 [id number] [place] use [address] [address] 08/28/2003 16:13:31 08/29/2003 08:05:32 [id number] Meeting use [address] [address] 11/06/2003 15:07:15 11/06/2003 17:09:19 [id number] Tobi Castaneda III, MD [facility] [address] [place] [address] 04/01/2017 19:25:45 04/02/2017 10:44:00 Acute asthma 713168030 J45.901 Wheezing and decreased airflow with significan t improvemen t after duoneb given in office. Take oral prednisone as prescribed . Cont. with home nebulizers /inhalers and plan f/u with PCP next week for re-eval. Upper resp iratory infection 31649986 J06.9 Possible infiltrate on xray. Will cover with abx as below. Advised rest, fluids, tylenol/ib uprofen PRN. Follow up in 5-7 days if not improving or sooner if worsening. [id number] Char Parra MD [facility] [address] [place] [address] 06/17/2019 14:28:22 06/20/2019 11:26:10 Pain of left shoulder joint 0458649740 [id number] M25.512 Xray no acute ABN noticed rest meds PRN and call pcp for Close F/up advised if needed PT tx or Ortho consult/ monitor s.s [id number] Ho Perez MD [facility] [address] [facility] [address] [place] [address] 02/19/2020 14:22:13 03/18/2020 12:51:54 Musculoskeletal pain 003096776 M79.10 Multiple joint pain 3567 8005 M25.50 Bilateral medial epicondylitis of elbows 9798825686 0785595 M77.01 M77.02 Bilateral trochanteric bursitis 0810817002 7600729 M70.61 M70.62 Fibromyalgia 709308439 M 79.7 Pes anseri nus bursitis [id number] M70.51 M70.52 Osteoarthritis 218826203 M19.90 [id number] Pearl Avila MD [facility] [address] [place] [address] 07/20/2021 12:07:25 07/20/2021 14:39:33 Pain in finger of left hand 4599239506 48070 M79.645 Contusion of left hand 2135580637 [id number] S60.222A - xrays w/o fracture, just arthritis- offered wrist brace, pt declined- encouraged rest, ice, anti-infla mmatories- f/u with pcp if not improving/ worsening [id number] Tobi Castaneda III, MD [facility] [address] [place] [address] 08/10/2021 13:18:48 08/10/2021 14:38:28 Persistent cough 392840209 R05.3 . Reviewe? d supportiv e ? m easures: nasal saline rinse, salt water gargles, good oral hygiene, cough drops, and honey. Influenza- like symptoms 532275376 R68.89 pt with flu like symptoms, flu negative, discussed with pt may still have flu illness . Explained mainstay of influenza treatment is supportive management . Recommend increasing hydration, rest, Tylenol/Mo lin PRN. Pt to remain out of work/schoo l until fever free for 24 hrs. Pt to f/u if new symptoms develop or any worsening of current symptoms. Exposure t o SARS-CoV-2 741769476 Z20.822 Suspected COVID-19 Infection Due to recent exposure and symptoms patient has possible COVID-19 infection. Signs and symptoms discussed with patient. Patient educated to self isolate in a room in their home away from others they live with. Mask if available. Patient advised not to leave house for any reason. Self treatment discussed including tylenol for fever, pain or myalgia; cough cold medication s for symptoms. Patient to check temperatur e daily. Monitor for symptoms of respirator y distress. To check in with PCP via phone with change in symptoms. Nature of disease to cause severe respirator y distress discussed. If needs emergent care to notify EMS or ED or PCP office that they may have COVID to allow for proper PPE and isolation. Atypical pneumonia 01019 6009 J18.9 71-year-ol d female presents patient also has a history patient states she needs an examinatio n ENT exam is normal lungs breath sounds decreased in the lower bases there is no wheezing. Chest x-ray question possible atypical pneumonia. Discussed with patient we will treat patient follow-up. Advise any worsening symptoms patient is to follow-up with PCP or return pneumonia suspected due to rhonchi and rales in lower base of lungs. VS reviewed. Patient will start on medication s below as directed and is aware of the side effects . Patient can take Motrin as directed on the medicine for any discomfort . Patient educated about inhaler use. Patient will f/u with PCP. Patient will go to the ED if symptoms worsen. [id number] Janet Hernandez RD [address] [place] [address] 06/09/2023 15:05:51 06/10/2023 10:39:03 Hypoglycemia 649793978 E16.2 [id number] John Garcia MD [facility] [address] [place] [address] 11/22/2023 13:39:22 11/22/2023 15:31:22 Mixed urinary incontinence 633713970 N39.46 Overactive urinary bladder 177462297 N32.81 [id number] John Garcia MD [facility] [address] [place] [address] 12/24/2023 13:19:48 12/24/2023 13:57:22 Overactive urinary bladder 116052210 N32.81 Health Concerns Section Related Observation LastModified by Organization Detai ls LastModified Time None Recorded Concern Status LastModified by Organization Details LastModified Time None Recorded Advance Directives Directive None Recorded Payers Encounter Date Sequence Insurance Name Policy Number Policy David Covered Member ID David Member ID Guarantor Name 07/20/2021 1 [employer] (MEDICARE REPLACEMENT PPO) [id number] Perdomo [id number] Avril Perdomo 08/10/2021 1 [employer] (MEDICARE REPLACEMENT PPO) [id number] Perdomo [id number] Avril Perdomo 06/09/2023 1 [employer] (MEDICARE REPLACEMENT PPO) [id number] Perdomo [id number] Avril Perdomo 11/22/2023 1 [employer] (MEDICARE REPLACEMENT PPO) [id number] Perdomo [id number] Avril Perdomo 12/24/2023 1 [employer] (MEDICARE REPLACEMENT PPO) [id number] Perdomo [id number] Avril Perdomo Notes Date Note Type Note Provider Name and Address Organization Details Recorded Time 2 text/html pt presents to with left wrist pain from fall. RL patient presents with left wrist/thumb pain - last night, tripped and fell against the building with outstretched hand, and then fell onto ground and landed on it. Unsure how she landed. Minimal bruising. Decreased ROM of thumb., cant pitch. Treatments attempted: ice. Pearl Avila MD [address] [place] [address], [phone], [facility] 07/21/2021 05:25:11 2 text/html Pt is a 71 y F who presents today c/o possible bronchitis. Sx started Wednesday night, no appetite, cough, sob. Pt states she had low grade fever yesterday of 100.4F. Pt needing to use nebulizer every 2 hrs. Pt requesting prednisone. Pt had covid 06/23/21 . Home covid test was negative. 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 - lost 70 lbs in 3.5 years - mostly intentionalFood Allergy or intolerances: nkfa/i - sometimes dairyPrimary Pipe Smoking Machine Offbearer: selfPrimary Food Assistant District Attorney: self and husbandDining Out frequency:- fast food: none- take out: bun-less burger 1x/wk - brings own roll- dining out: 2 x / wk - [address] GrillAlcohol Intake: mostly avoids - found a 3 g carbohydrate wineSupplements: Centrum for Women over 55, Vit D3 5000, MgBeverages: Vitamin Water x 2 / day w/ Keto S1000 Electolyte Powder (o gayle, 0 sugar, 1000 Na, 320 K+, 75 Mg, 750 Cl Diet recall:Wake Up: 4:30 AMBreakfast: 6 AM - driving to work - 16-20 oz coffee w/ 1/3 C sf coffee mate and 2-3 stevia in the raw (drinks 6-10 AM)Egg Life wrap w/ 2 T sugar free peanut butter, and 1 T Polaner high fiber raspberry preserveSnack: -Lunch: 12/1 PM - 2 slices Hero Bread w/ 2 slices turkey breast, slice of Tunisian cheese, slice of tomato, slice of lettuceSnack: 1 Atkins Low Carb TurtleLeave work at 6 PMDinner: 7:30/8 PM - 16 oz steak, 1.5 C cauliflower, roasted w/ olive oilSnack: maybe an Atkins Chocolate g Carb - sometimes cheats w/ 1 small cookie or a 1/2 lemon square, or on a really hard day 1.5 C ice cream Physical Activity:Type of Physical Activity: walks around a lot at work - painfully - probably spends 6-8 hours (2.5 hours in the car 5 days per week)Physical Limitations: very bad back - 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, [address], [facility] 06/25/2023 10:45:11 4 text/html This is a 73-year-old white female comes in with overactive bladder symptoms including frequency urgency urgency incontinence and nocturia 3 times at night. She has had 2 C-sections G2, P2 but has really no evidence of stress urinary incontinence with coughing laughing or sneezing. Her UA today is negative. She states she has had this for the last 6 months and wears pads John Garcia MD [address] [place], [address], [facility] 11/22/2023 14:21:44 4 text/html This is a TeleMed follow-up in a 73-year-old white female send overactive bladder symptoms with frequency urgency and nocturia. She has been having horrible back pain and is due to get an MRI within the next 2 weeks to establish whether or not this may be a cause 8 of factor for her overactive bladder. She is currently on an anticholinergic Ditropan XL 10 mg p.o. daily and has helped her symptoms by about 50%. John Garcia MD [address] [place], [address], [facility] 12/24/2023 13:27:05 OBGyn Episode No OBEpisode recorded.
--- OUTSIDE RECORDS SUMMARY | 2024-03-29 09:25 | XMS_ITS | Clinical Summary ---
Author Organization [facility] Address [address] [place] [address] Care Team Providers Care Timber Surveyor Name Role Phone Unavailable Primary Care Provider Unavailabl e Allergies Active Allergy Reactions Criticality Noted Date Comments Latex 09/19/2013 Penicillin G Proc & Benzathine High 09/19/2013 PENICILLIN G BENZATHINE & PROC Active Problems Problem Noted Date Diagnosed Date Allergic rhinitis due to animal (cat) (dog) hair and dander 10/17/2013 Overview (11/29/2016): Allergic asthma 10/17/2013 Asthma, moderate 09/19/2013 Overview (07/30/2014): ON ICS LABA LTRA CLOVER still symptomatic Will order Xolair Social History Tobacco Use Types Packs/Day Years Used Date Smoking Tobacco: Passive Smo ke Exposure - Never Smoker Smokeless Tobacco: Never Alcohol Use Standard Drinks/Week Comments No 0 (1 standard drink = 0.6 oz pur e alcohol) Comments Unknown Sex and Gender Information Value Date Recorded Sex Assigned at Not on file Legal Sex Female 9:27 PM EST Gender Identity Not on file Sexual Orientation Not on file Last Filed Vital Signs Vital Sign Reading Time Taken Comments Blood Pressure 126/78 10/17/2013 4:42 PM EDT Pulse 76 10/17/2013 4:42 PM EDT Temperature - - Respiratory Rate 16 10/17/2013 4:42 PM EDT Oxygen Saturation 97% 09/19/2013 2:05 PM EDT Inhaled Oxygen Concentration - - Weight 85.2 kg (187 lb 12.8 oz) 09/19/2013 2:05 PM EDT Height 149.9 cm (4' 11 ) 09/19/2013 2:05 PM EDT Body Mass Index 37.93 09/19/2013 2:05 PM EDT Plan of Treatment Health Maintenance Due Date Last Done Comments Hepatitis C Screening 1950 DTaP/Tdap/Td (1 - Tdap) 1970 Mammogram/Breast Imaging 1992 Pneumococcal 50+ years (1 of 1 - PCV) 2002 Zoster (Shingrix) (1 of 2) 2002 Bone Density 2017 COVID-19 Vaccine ( - 2023-2 5 season) 2023 Influenza (#1) 2023 RSV (1 - 1-dose 75+ series) 07/06/2027 HPV Vaccine Aged Out No longer eligi ble based on patient's age to complete this topic Hep A Aged Out No longer eligi ble based on patient's age to complete this topic Hep B Aged Out No longer eligi ble based on patient's age to complete this topic Hib Aged Out No longer eligi ble based on patient's age to complete this topic Meningococcal ACWY Aged Out No longer eligible based on patient's age to complete this topic Pap Smear Discontinued Zoster (Zostavax) Discontinued Insurance [employer] [facility] PPO
--- OUTSIDE RECORDS SUMMARY | 2024-03-29 09:25 | XMS_ITS ---
Author Organization [facility] Address [address] [place] [address] Care Team Providers Care Gripper Attacher Name Role Phone CELSA BAL DO Primary Care Provider MARYELLEN Olivier Unavailable [phone] Encounters Encounter Location Date Provider Diagnosis [facility] [address] [address] 03/23/2024 MARYELLEN BYERS Plan Of Treatment Next Appt Details Provider Name:MARYELLEN BYERS, 05/03/2024 03:00:00 PM, [address] [place] [address], [phone], Progress Notes * MALIKA CAMPUZANOPETERSON:1950 (73 yo F)Acc No.[id number]:03/23/2024 Patient:?KORY CAMPUZANO :1950???Age:73 Y???Sex:Female Address:[address] [place] [address], [address] * true * Date:? Generated for Printi ann/Mana/eTransmitting on:?03/29/2024 09:24 AM EST
--- OUTSIDE RECORDS SUMMARY | 2024-03-29 09:26 | XMS_ITS ---
Author Organization [facility] Address [address] [facility] [address] [place], [place] [id number] Care Team Providers Care Occupational Therapy Aides Teacher Name Role Phone Kalpana Omer Primary Care Provider Dulce vailacarla Molina, Federico Unavailable REASON FOR VISIT Called to schedule DOCUMENT PREPARER MICROFILMING appt Encounters Encounter Location Date Provider Diagnosis [facility] [address] [facility] [address] [place], [place] [id number] 10/20/2023 Federico Molina Plan Of Treatment No Information Progress Notes * Yasir PERDOMODejahB:1950 (73 yo F)Acc No.[id number]:10/20/2023 Patient:?Avril PERDOMO :1950???Age:73 Y???Sex:Female Phone: Address:[address] [place] [phone] * true * Date:? Generated for Janice juarez/Mana/eTransmitting on:?03/29/2024 09:26 AM EST
--- OUTSIDE RECORDS SUMMARY | 2024-03-29 09:26 | XMS_ITS | Encounter Summary ---
Author Organization [facility] Address [phone] [facility] [place] [address] Care Team Providers Care Event Staff Member Name Role Phone Rosario Escalona MD Unavailable [phone] Kalpana Quezada Primary Care Provider [phone] Encounter Details Date Type Department Care Team (Late st Contact Info) Description 02/03/2024 Orders Only [facility] [address] [place] [address] [place] [address] Theodore Amaro MD [address] [place] [address] [address] [place] [address] Social History Tobacco Use Types Packs/Day Years Used Date Smoking Tobacco: Never Passive Smoke Exposure: Past Smokeless Tobacco: Never Alcohol Use Standard Drinks/Week Comments Not Currently 0 (1 standard drink = 0.6 oz pur e alcohol) rarely Education Answer Date Recorded Are you interested in more education? Not on boom e 06/26/2022 Are you concerned about learning? Not on file 06/26/2022 No 06/26/2022 No 06/26/2022 Digital Access Answer Date Recorded No 07/27/2022 No 07/27/2022 Reliable internet access at home? Not on file 07/27/2022 Device with a working camera? Not on file Sex and Gender Information Value Date Recorded Sex Assigned at Not on file Gender Identity Female 08/23/2022 10:51 AM EDT Sexual Orientation Straight 08/23/2022 10 :51 AM EDT documented as of this encounter Plan of Treatment Upcoming Encounters Date Type Department Care Team (Late st Contact Info) Description 08/01/2024 3:00 PM EDT Follow-Up [facility] Neurology [address] [place] [address] [place] [address] Andre Greene, DO [address] [place] [address] 08/31/2024 8:00 AM EDT Follow-Up Rosario Escalona M.D. [address] [place] [address] Rosario Escalona MD [address] [place] [place] [address] documented as of this encounter Procedures Procedure Name Priority Date/Time Associated Diagnosis Comments OUTSIDE US VEINS EXTREMITY LOWER REPORT ONLY Routine 12/30/2023 1:43 PM EDT documented in this encounter Results * Outside US Veins Extremity Lower Report Only (12/30/2023 1:43 PM EDT) Theodore [facility] MD [facility] documented in this encounter Visit Diagnoses Not on filedocumented in this encounter Additional Health Concerns Assessment Noted Time PHQ-2 Depression Total Score: 0 09/26/19 17 8:30 AM EDT documented as of this encounter Care Teams Event Staff Member Relationship Specialty Start Date End Date Kalpana Quezada PA [address] [facility] [place] [address] PCP - General Physician Seo Executive 11/04/23 Rosario Escalona MD [address] [place] [place] [address] Endocrinology 02/10/23 documented as of this encounter Additional Source Comments The information contained in this document represents components of the legal health record. It is not the complete legal health record.[facility]
--- OUTSIDE RECORDS SUMMARY | 2024-03-29 09:26 | XMS_ITS | Clinical Summary ---
Author Organization [facility] Address [address] [place] [address] Care Team Providers Care Cloth Beamer Name Role Phone Edmond Brandon MD Primary Care Provider [phone] Surgical History Surgery Date Site/Laterality Comments SECTION PROCEDURE: LA DELIVERY ONLY TOTAL KNEE ARTHROPLASTY PROCEDURE: LA ARTHRP KNE CONDYLE&PLATU MEDIAL&LAT COMPARTMENTS OTHER SURGICAL HISTORY PROCEDURE: ---- OTHER ----; COMMENT: endoscopy HERNIA REPAIR PROCEDURE: HISTORICAL HERNIA REPAIR/ING Medical History Medical History Date Comments COPD (chronic obstructive pu lmonary disease) ([facility]) DX:COPD (chronic obstructive pulmonary disease) ([facility]) Asthma DX:Asthma GERD (gastroesophageal reflux disease) DX:GERD (gastroesophageal reflux disease) Hiatal hernia DX:Hiatal hernia Seizures ([facility]) DX:Seizures ( [facility]) Chronic kidney disease DX:Chroni c kidney disease Hypertension DX:Hypertension High cholesterol DX:High cholest marian Family History Medical History Relation Name Comments Parkinson's Disease Father Other: congestive heart failure Mother COPD Other Hyperlipidemia Other Hypertension Other Relation Name Status Comments Father Mother Other Social History Tobacco Use Types Packs/Day Years Used Date Smoking Tobacco: Never Smokeless Tobacco: Never Alcohol Use Standard Drinks/Week Comments Yes 1 (1 standard drink = 0.6 oz pur e alcohol) Sex and Gender Information Value Date Recorded Sex Assigned at Not on file Gender Identity Not on file Sexual Orientation Not on file Obstetrics History Plan of Treatment Health Maintenance Due Date Last Done Comments DTaP,Tdap,and Td Vaccines (1 - Tdap) 07/06/1971 Zoster Vaccines (1 of 2) 2002 Pneumococcal Vaccine: 65+ Ye ars (2 of 2 - PPSV23 or PCV20) 12/31/2018 12/31/2017 Breast Cancer Screening 02/25/2020 02/24/2018 COVID-19 Vaccine (1 - 2024-2 5 season) 2023 Influenza Vaccine (#1) 2023 RSV Immunization Patients 60 + Years Old (1 - 1-dose 75+ series) 07/06/2027 HIB Vaccines Aged Out No longer eligi ble based on patient's age to complete this topic HPV Vaccines Aged Out No longer eligi ble based on patient's age to complete this topic Hepatitis A Vaccines Aged Out No long er eligible based on patient's age to complete this topic Hepatitis B Vaccines Aged Out No long er eligible based on patient's age to complete this topic IPV Vaccines Aged Out No longer eligi ble based on patient's age to complete this topic MMR Vaccines Aged Out No longer eligi ble based on patient's age to complete this topic Meningococcal ACWY Vaccine Aged Out N o longer eligible based on patient's age to complete this topic RSV Immunization Patients Un bradley 20 months Aged Out No longer eligible b ased on patient's age to complete this topic Varicella Vaccines Aged Out No longer eligible based on patient's age to complete this topic Procedures Procedure Name Priority Date/Time Associated Diagnosis Comments [facility] SCREENING DIGITAL Routine 02/24/2018 6:08 PM EST Encounter for screening mammogram for malignant neoplasm of breast from Last 3 Months or Most Recently Relevant to Health Maintenance Results * [facility] SCREENING DIGITAL (02/24/2018 6:08 PM EST) Anatomical Region Laterality Modality Mammography 02/17/2018 8:14 AM EST Narrative 02/24/2018 6:08 PM EST [facility] Diagnostic Imaging Department [address] [place], [place] [address] Patient: ??KORY PERDOMO ?/Age/Sex: 1950 - 67 - F Unit#: ??[id number] ? Location/Status: ??SPDIMAM/REG CLI ? Mnemonic/Ordering Site: ??DIGSC/SPMAM Ordering Physician: ??EDMOND BRANDON MD Berna Screening Digital - 02/17/18846 History: Bilateral breast cancer screening. Technique: Bilateral digital mammography. Conventional CC and MLO projections with tomosynthesis MLO views and computer aided detection. Findings: Comparison: None available. Breast tissue is mostly fatty replaced (category a density) bilaterally. ??There are benign calcifications bilaterally. ?? There is no suspicious group of mi crocalcification, no suspicious mass, architectural distortion or suspicious asymmetry. Impression: ??No mammographic evidence of malignancy. BIRADS category 2, benign findings, 3342F [address], [id number] Note: Patient information entered ??into a reminder system with a target due date for the next mammogram; PQRI II 7028F Dictating Physician: ??MIHIR WU MD Electronically Signed by: ??MIHIR WU MD Dic Date/Time: ??02/24/181806 Sign date/Time: ??02/24/181807 Procedure Note Mihir Wu MD - 02/17/2022 [facility] Diagnostic Imaging Department [address] [place] [address] Patient: KORY PERDOMO./Age/Sex: 1950 - 67 - F Unit#: [id number] Location/Status: SPDIMAM/REG CLI Mnemonic/Ordering Site: [facility] Ordering Physician: EDMOND BRANDON MD Berna Screening Digital - 02/17/18846 History: Bilateral breast cancer screening. Technique: Bilateral digital mammography. Conventional CC and MLOprojections with tomosynthesis MLO views and computer aided detection. Findings: Comparison: None available. Breast tissue is mostly fatty replaced (category a density) bilaterally.There are benign calcifications bilaterally. There is no suspicious group ofmi crocalcification, no suspicious mass, architectural distortion orsuspicious asymmetry. Impression: No mammographic evidence of malignancy. BIRADS category 2, benign findings, 3342F [address]4094, [address] Note: Patient information entered into a reminder system with a targetdue date for the next mammogram; PQRI II 7025F Dictating Physician: MIHIR WU MD Electronically Signed by: MIHIR WU MD Dic Date/Time: 02/24/181806 Sign date/Time: 02/24/181807 Edmond Brandon MD IMG BI PROCEDURES from Last 3 Months or Most Recently Relevant to Health Maintenance Advance Directives Documents on File Type Date Recorded Patient Accounting File Clerk Expl anation Health Care Decision (hx) 04/07/2017 ISRAEL SHI DIRECTIVE Care Teams Cloth Beamer Relationship Specialty Start Date End Date Edmond Brandon MD PCP - General Internal Medicine 11/23/17
--- OUTSIDE RECORDS SUMMARY | 2024-03-29 09:26 | XMS_ITS | Patient Health Record ---
Author Organization [facility] Address [address] [facility] [address] [place], [place] [id number] Care Team Providers Care Improvement Auditor Name Role Phone Kalpana Omer Primary Care Provider Dulce brittonilacarla Molina, Federico Unavailable Reason For Referral No Information Encounters Encounter Location Date Provider Diagnosis [facility] [address] [facility] [address] [place], [place] [id number] 10/20/2023 Federico Molina Plan Of Treatment No Information Insurance Providers Payer Name Payer Address Payer Phone Subscriber Number Group Number Insured Name Patient Relationship to Insured Coverage Start Date Coverage End Date [employer] [address] [place] [phone] [id number] Avril Perdomo Self - patient is the insured
--- OUTSIDE RECORDS SUMMARY | 2024-03-29 09:26 | XMS_ITS | Clinical Summary ---
Author Organization [facility] Address [phone] [facility] [employer] [place] [address] Care Team Providers Care Sandblaster Stone Name Role Phone Rosario Escalona MD Unavailable [phone] Kalpana Quezada Primary Care Provider [phone] Allergies Active Allergy Reactions Criticality Noted Date Comments Latex Wheezing 09/08/2013 Penicillins Anaphylaxis 09/08/2013 Medications Medication Sig Dispensed Refills Start Date End Date Status albuterol 2.5 mg /3 mL (0.083 %) nebulizer solution Dose: 2.5 MG; Form: Take 3 ML; Route: NEB; Frequency: Q6H PRN wheezing; Directions: Not available; Details: Dispense: 60 ML(s); Date: 04/13/2016 04/13/2016 Active albuterol sulfate 90 mcg/actuation AePB Dose: 2 PUFF; Form: Not available; Route: INH; Frequency: Q6H PRN; Directions: Not available; Details: Dispense: 3 Inhaler(s); Date: 03/16/2016 03/16/2016 Active cholecalciferol (VITAMIN D3) 2,000 unit tablet Dose: 2000 UNITS; Form: Take 1 TABLET; Route: PO; Frequency: Q24H; Directions: Not available; Details: Dispense: Tablet(s); Date: 03/30/2014 03/30/2014 Active simvastatin (ZOCOR) 10 MG tablet TAKE 1 TABLET BY MOUTH EVERY DAY IN THE EVENING 30 tablet 01/11/2018 Active inhaler spacing device (AEROCHAMBER,ORLANDO ATHERITE) Spcr by Miscellaneous_ route Use with Advair HFA Active montelukast (SINGULAIR) 10 mg tablet Take 1 tablet by mouth daily. 08/28/2021 Active pravastatin (PRAVACHOL) 20 MG tablet Take 1 tablet by mouth daily. 07/14/2021 Active roflumilast (DALIRESP) 500 mcg Tab Take 1 tablet by mouth daily. 07/02/2021 Active cetirizine (ZYRTEC) 10 mg capsule Take 10 mg by mouth. Active losartan (COZAAR) 50 MG tablet Take 1 tablet by mouth every morning. 06/22/2022 Active acarbose (PRECOSE) 25 MG tablet Take 1 tablet by mouth 3 (three) times a day with meals. Active blood-glucose sensor (NeuroVigil G7 SENSOR) Jennifer 1 each by See Administration Instructions route Every 10 Days. 9 each 1 11/04/2023 Active pregabalin (LYRICA) 225 MG capsule Take 1 capsule by mouth 2 (two) times a day. 11/04/2023 Active methocarbamoL (ROBAXIN) 750 MG tablet Take 750 mg by mouth 2 (two) times a day. 10/14/2023 Active omeprazole (PRILOSEC) 20 MG capsule 12/20/2023 Active oxyBUTYnin (DITROPAN-XL) 10 MG 24 hr tablet Take 1 tablet by mouth every morning. 12/16/2023 Active HYDROcodone-acet aminophen (NORCO 10-325) 10-325 mg per tablet take one tablet by mouth every eight hours as needed 12/02/2023 Active netqpdag-jtv-ifn ermias gluconate (CENTRUM WITH IRON) 9 mg iron/15 mL Liqd Take 15 mL by mouth daily. Active calcium carbonate-vitami n D3 1,250 mg (500 mg elemental)-400 units per tablet Take 1 tablet by mouth daily. 1200 mg qd Active ibuprofen (ADVIL,MOTRIN) 100 mg/5 mL suspension Take by mouth every 6 (six) hours as needed for mild pain or 1-3 (on a general 0-10 scale). Active levETIRAcetam (KEPPRA) 1000 MG tabletIndication s:Partial idiopathic epilepsy with seizures of localized onset, not intractable, without status epilepticus Take 1 tablet (1,000 mg total) by mouth 2 (two) times a day. 180 tablet 3 12/22/2023 Active methylPREDNISolo ne (MEDROL DOSEPACK) 4 mg tablet TAKE BY MOUTH DIRECTED ON PACKAGE. 12/16/2023 5 Discontinu ed(No longer taking) lidocaine (LIDODERM) 5 % Place 1 patch onto the skin daily. Remove & Discard patch within 12 hours or as directed by 5 Discontinu ed(No longer taking) Active Problems Problem Noted Date Diagnosed Date Epilepsy 05/25/2022 08/21/2022 Allergy to cats 01/05/2014 Overview (06/17/2017): cat dander;PHS Allergy Remediation Asthma 09/08/2013 Overview (09/25/2016): Asthma Hypertension 09/08/2013 Overview (09/25/2016): Hypertension Depression 09/08/2013 Overview (09/25/2016): Depression Gastroesophageal reflux disease 09/08/2013 Overview (09/25/2016): Gastroesophageal reflux disease Hyperlipidemia 09/08/2013 Overview (09/25/2016): Hyperlipidaemia Osteoarthritis 09/08/2013 Overview (09/25/2016): knee. thumb Osteoarthritis; knee. thumb Allergic rhinitis 09/08/2013 Overview (09/25/2016): Allergic rhinitis Obesity 09/08/2013 Overview (09/25/2016): Obesity Anemia 09/08/2013 Overview (09/25/2016): Anemia Encounters Date Type Department Care Team Description 03/02/2024 8:00 AM EST Follow-Up Rosario Escalona M.D. [address] [address] Rosario Escalona MD Hypoglycemia (Primary Dx); Prediabetes 02/03/2024 [facility] [address] [facility] [address] [place] [address] Theodore Amaro MD 01/03/2024 Telephone [facility] Neurology [address] [place] [address] [place] [address] Bharti Medina MA MD Phone Visit (Patient call) 12/30/2023 3:45 PM EDT Follow-Up [facility] [address] [place] [address] Theodore Amaro MD Varicose veins of leg with edema, bilateral (Primary Dx) from Last 3 Months Immunizations Name Administration Dates Next Due COVID-19 (Pre-12/21) Moderna Vaccine, mRNA, PF 03/21/2020,03/08/2020 Influenza High-Dose Trivalen t Preservative Free IM 11/21/2017 Influenza Nasal, Unspecified Formulation 11/27/2013 Influenza Quadrivalent Prese rvative Free IM 12/04/2018 Influenza, Unspecified Formulation 11/29/2015, Pneumococcal conjugate PCV13 04/18/2020,01/01/20 18,09/03/2015 Pneumococcal polysaccharide PPSV23 02/25/2010 Pneumococcal, Unspecified Formulation ,01/05/2014(Deferred: Patient Decision),09/13/2013(Deferred: Patient Decision - WAITING FOR IMMUNIZATION RECORDS) Td (adult) 5 Lf Tetanus Toxo id, PF, Adsorbed 11/11/2006 Tdap 09/21/2013 Zoster live 08/24/2015 Family History Medical History Relation Comments Parkinsonism Father Type 2 Diabetes Father Diabetes Mellitu s type 2 Heart failure Mother Type 2 Diabetes Mother Diabetes Mellitu s type 2 Relation Status Comments Father Mother Social History Tobacco Use Types Packs/Day Years Used Date Smoking Tobacco: Never Passive Smoke Exposure: Past Smokeless Tobacco: Never Tobacco Cessation:Counseling Given: Not Answered Alcohol Use Standard Drinks/Week Comments Not Currently [...] Orientation Straight 08/23/2022 10 :51 AM EDT Last Filed Vital Signs Vital Sign Reading Time Taken Comments Blood Pressure 132/65 03/02/2024 8:32 AM EST Pulse 70 12/22/2023 4:00 PM EDT Temperature 36.8 ??C (98.2 ??F) 03/16/2016 8:12 AM ES T Respiratory Rate 19 09/25/2016 8:57 AM EDT Oxygen Saturation 98% 12/22/2023 4:00 PM EDT Inhaled Oxygen Concentration - - Weight 69.4 kg (153 lb) 03/02/2024 8:32 AM EST Height 147.3 cm (4' 10 ) 11/08/2023 8:29 AM EDT Body Mass Index 31.98 11/08/2023 8:29 AM EDT Plan of Treatment Upcoming Encounters Date Type Department Care Team (Late st Contact Info) Description 08/01/2024 3:00 PM EDT Follow-Up [facility] Neurology [address] [place] [address] Andre Greene, DO [address] [place] [address] 08/31/2024 8:00 AM EDT Follow-Up Rosario Escalona M.D. [address] [facility] [address] [place] [address] Rosario Escalona MD [address] [facility] [address] [place] [address] Health Maintenance Due Date Last Done Comments CREATININE LEVEL 1950 LIPID PANEL 1950 POTASSIUM LEVEL 1950 HEPATITIS B SCREENING 1970 HEPATITIS C SCREENING 1970 COLOGUARD 1997 COLONOSCOPY 1997 COLORECTAL CANCER SCREENING 1997 FIT TEST 1997 FOBT 1997 SIGMOIDOSCOPY 1997 VIRTUAL COLONOSCOPY 1997 RSV VACCINE (1 - Risk 60-74 years 1-dose series) 2012 ZOSTER VACCINES (2 of 3) 10/19/2015 08/24/2015 DEPRESSION SCREENING 09/25/2017 09/25/2016 Adult Td,Tdap Booster 09/22/2023 09/21/2013, 007 INFLUENZA VACCINE (#1) 2023 9, 11/21/2017, 11/29/2015, Additional history exists COVID-19 VACCINE (3 - season) 2023 03/21/2020, 03/08/2020 BLOOD PRESSURE 08/30/2024 03/02/2024 PNEUMOCOCCAL VACCINES (50+ years) (3 of 3 - PCV20 or PCV21) 04/18/2025 04/18/2020, 12/31/2017, 09/03/2015, Additional history exists MAMMOGRAM 11/28/2025 11/29/2023, 11/01, 03/27/2022, Additional history exists SMOKING STATUS SCREENING (Once After 26 Yrs) Completed 11/08/2023 OSTEOPOROSIS SCREENING INITIAL (ONE-TIME) Completed 11/09/2023 HEPATITIS A VACCINES Aged Out No long er eligible based on patient's age to complete this topic HEPATITIS B VACCINES Aged Out No long er eligible based on patient's age to complete this topic HIB VACCINES Aged Out No longer eligi ble based on patient's age to complete this topic MENINGOCOCCAL VACCINES (ACWY) Aged Out No longer eligible based on patient's age to complete this topic Medical Devices Not on file Procedures Procedure Name Priority Date/Time Associated Diagnosis Comments MRI LUMBAR SPINE WITHOUT CONTRAST 12/31/2023 7:38 PM EDT OUTSIDE US VEINS EXTREMITY LOWER REPORT ONLY Routine 12/30/2023 1:43 PM EDT from Last 3 Months Results * MRI Lumbar Spine Without Contrast (12/31/2023 7:38 PM EDT) Anatomical Region Laterality Modality Historical 12/31/2023 7:38 PM EDT Narrative 12/31/2023 10:44 PM EDT [facility] Department of Radiology [facility] MRI Lumbar History: Acute low back pain with right lower extremity radiculopathy, urinary incontinence, and urinary retention. Comparison: None. Technique: Standard department protocol MRI lumbar spine. Findings: Alignment is intact. Modic endplate changes and endplate irregularity are prominent at at L2-3, L3-4, and L4-5. Disc desiccation and loss of disc height are diffuse. The conus terminates at T12-L1. The nerve roots distal to the L4-5 level are slightly thickened and clumped. Bilateral renal high T2 foci are noted, the largest 2.2 cm in diameter. At L2-3, a moderate bulge, posterior osteophytes, and posterior hypertrophic changes with osseous overgrowth results in mild spinal stenosis as well as mild bilateral neural foraminal stenosis. At L3-4, a mild to moderate bulge, posterior osteophytes, and posterior hypertrophic changes result in mild spinal and mild to moderate bilateral neural foraminal stenosis. At L4-5, a mild bulge has a superimposed mild to moderate broad central, right lateral preforaminal, right lateral intraforaminal, and far right lateral component which grazes the right L4 nerve root as it exits and abuts the right L5 nerve root ventrally. In conjunction with posterior hypertrophic changes and epidural lipomatosis, mild spinal and moderate right neural foraminal stenosis result. At L5-S1, posterior hypertrophic changes are noted. Impression: 1. Multilevel lumbar degenerative changes as above. 2. Bilateral renal high T2 foci, incompletely characterized. Preliminary results reviewed by Dr. Hernandez. ?? Reported By: Brianna Sandhu MD ?? Signed By: Brianna Sandhu MD Procedure Note Brianna Sandhu MD - 12/31/2023 [facility] Department of Radiology LUM MRI Lumbar History: Acute low back pain with right lower extremity radiculopathy, urinary incontinence, and urinary retention. Comparison: None. Technique: Standard department protocol MRI lumbar spine. Findings: Alignment is intact. Modic endplate changes and endplate irregularity are prominent at at L2-3, L3-4, and L4-5. Disc desiccation and loss of disc height are diffuse. The conus terminates at T12-L1. The nerve roots distal to the L4-5 level are slightly thickened and clumped. Bilateral renal high T2 foci are noted, the largest 2.2 cm in diameter. At L2-3, a moderate bulge, posterior osteophytes, and posterior hypertrophic changes with osseous overgrowth results in mild spinal stenosis as well as mild bilateral neural foraminal stenosis. At L3-4, a mild to moderate bulge, posterior osteophytes, and posterior hypertrophic changes result in mild spinal and mild to moderate bilateral neural foraminal stenosis. At L4-5, a mild bulge has a superimposed mild to moderate broad central, right lateral preforaminal, right lateral intraforaminal, and far right lateral component which grazes the right L4 nerve root as it exits and abuts the right L5 nerve root ventrally. In conjunction with posterior hypertrophic changes and epidural lipomatosis, mild spinal and moderate right neural foraminal stenosis result. At L5-S1, posterior hypertrophic changes are noted. Impression: 1. Multilevel lumbar degenerative changes as above. 2. Bilateral renal high T2 foci, incompletely characterized. Preliminary results reviewed by Dr. Hernandez. Reported By: Brianna Sandhu MD Signed By: Brianna Sandhu MD Andre Greene DO IMG MR SPINE * Outside US Veins Extremity Lower Report Only (12/30/2023 1:43 PM EDT) Theodore Amaro MD G US THYROID from Last 3 Months Advance Directives Documents on File Type Date Recorded Patient Sales Representative Cash Registers Expl anation Advance Directive - Non Epic LMR 03/05/2015 12:00 AM Care Teams Sandblaster Stone Relationship Specialty Start Date End Date Kalpana Quezada PA [address] [facility] [place] [address] PCP - General Physician Hoop Machine Operator 11/04/23 Rosario Escalona MD [address] [place] [id number] Endocrinology 02/10/23 Additional Source Comments The information contained in this document represents components of the legal health record. It is not the complete legal health record.[facility]
--- OUTSIDE RECORDS SUMMARY | 2024-03-29 09:27 | XMS_ITS ---
Author Organization [facility] Address [address] [place] [id number] Care Team Providers Care Front Desk Assistant Name Role Phone CELSA BAL DO Primary Care Provider MARYELLEN Olivier Unavailable [phone] Encounters Encounter Location Date Provider Diagnosis [facility] [address] [phone] 03/23/2024 MARYELLEN BYERS Plan Of Treatment Next Appt Details Provider Name:MARYELLEN BYERS, 05/03/2024 03:00:00 PM, [address] [place] [address], [phone], Progress Notes * MALIKA CAMPUZANOPETERSON:1950 (73 yo F)Acc No.[id number]:03/23/2024 Patient:?KORY CAMPUZANO :1950???Age:73 Y???Sex:Female Address:[address] [place] [address], [address] * true * Date:? Generated for Printi ann/Mana/eTransmitting on:?03/29/2024 09:27 AM EST
--- OUTSIDE RECORDS SUMMARY | 2024-03-29 09:27 | XMS_ITS | Clinical Summary ---
Author Organization [facility] Address [address] [place] [address] Care Team Providers Care Seam Press Operator Name Role Phone Shantell Romero Primary Care Provider [phone] Allergies Active Allergy Reactions Criticality Noted Date Comments Latex Other (see comments),Wheezing 04/20/2011 Wheezing Skin breakdown/swelling Penicillins Anaphylaxis High 04/20/2011 Rash, anaphylaxis Medications albuterol (PROAIR HFA,VENTOLIN HFA) 90 mcg inhaler Inhale 2 puffs by mouth. Active cetirizine 10 mg capsule Take 10 mg by mouth once a day. Active gabapentin (NEURONTIN) 100 mg capsule Take 200 mg by mouth once a day. 2 Active losartan (COZAAR) 100 mg tablet Take 50 mg by mouth once a day. Active montelukast (SINGULAIR) 10 mg tablet 10 mg once a day. 2 Active pravastatin (PRAVACHOL) 20 mg tablet Take 20 mg by mouth once a day. 2 Active Daliresp 500 mcg tablet Take 1 tablet by mouth once a day. 2 Active budesonide-form oteroL (SYMBICORT) 160-4.5 mcg inhaler Inhale 2 puffs by mouth 2 (two) times a day. Active fluticasone-ume clidinium-vilan terol (TRELEGY ELLIPTA) 200-62.5-25 mcg blister with device Inhale 1 puff by mouth once a day. Active meloxicam (MOBIC) 15 mg tablet Take 15 mg by mouth once a day. Active zonisamide (ZONEGRAN) 100 mg capsule TAKE 4 CAPSULES BY MOUTH AT NIGHTLY 360 capsule 1 3 Active erythromycin (ILOTYCIN) 0.5% ophthalmic ointment Apply 0.5 inches to both eyes 4 times a day. 3.5 g 3 Active methylPREDNISol one (MEDROL DOSEPACK) 4 mg tablet Day 1: 24 mg on day 1 administered as 8 mg before breakfast, 4 mg after lunch, 4 mg after supper, and 8 mg at bedtime or 24 mg as a single dose or divided into 2 or 3 doses upon initiation (regardless of time of day). Day 2: 20 mg on day 2 administered as 4 mg before breakfast, 4 mg after lunch, 4 mg after supper, and 8 mg at bedtime. Day 3: 16 mg on day 3 administered as 4 mg before breakfast, 4 mg after lunch, 4 mg after supper, and 4 mg at bedtime. Day 4: 12 mg on day 4 administered as 4 mg before breakfast, 4 mg after lunch, and 4 mg at bedtime. Day 5: 8 mg on day 5 administered as 4 mg before breakfast and 4 mg at bedtime. Day 6: 4 mg on day 6 administered as 4 mg before breakfast. 21 tablet 4 Active Active Problems Problem Noted Date Diagnosed Date Epilepsy 12/10/2021 Acute midline low back pain with bilateral sciat ica 09/02/2021 Encounters Date Type Department Care Team Description 02/18/2024 Transcribe Orders [facility] [address] [place] [address] Kalpana Quezada PA Pain in joint, multiple sites (Primary Dx) from Last 3 Months Social History Tobacco Use Types Packs/Day Years Used Date Smoking Tobacco: Never Smokeless Tobacco: Never Tobacco Cessation:Counseling Given: Not Answered Alcohol Use Standard Drinks/Week Comments Not Currently 0 (1 standard drink = 0.6 oz pur e alcohol) Comments Unknown Sex and Gender Information Value Date Recorded Sex Assigned at Female 09/01/2021 9:06 PM EDT Legal Sex Female 10:30 AM EDT Gender Identity Female 09/01/2021 9:06 PM EDT Sexual Orientation Straight 09/01/2021 9: 06 PM EDT Last Filed Vital Signs Vital Sign Reading Time Taken Comments Blood Pressure 128/83 12/15/2023 7:05 PM EDT Pulse 74 12/15/2023 7:05 PM EDT Temperature 36.1 ??C (96.9 ??F) 12/15/2023 7:05 PM ED T Respiratory Rate 16 12/15/2023 7:05 PM EDT Oxygen Saturation 97% 12/15/2023 7:05 PM EDT Inhaled Oxygen Concentration - - Weight 70.3 kg (155 lb) 12/15/2023 7:05 PM EDT Height 149.9 cm (4' 11 ) 11/19/2021 4:07 PM EDT Body Mass Index 31.31 11/19/2021 4:07 PM EDT Plan of Treatment Upcoming Encounters Date Type Department Care Team (Late st Contact Info) Description 08/18/2024 3:40 PM EDT Follow-Up [facility] [address] [place] [phone] [employer]: Sandy Del Cid MD [address] [place] [address] [phone] Health Maintenance Due Date Last Done Comments Colonoscopy 1950 FOBT / Fit Test 1950 Hepatitis C Screening 1950 Sigmoidoscopy 1950 RSV Vaccine (60+ years old and patients) (1 - Risk 60-74 years 1-dose series) 2012 Zoster Vaccines (2 of 3) 10/19/2015 08/24/2015, 03/2015 Pneumococcal Vaccine: 65+ Years (3 of 3 - PPSV23 or PCV20) 04/18/2021 04/18/2020, 12/31/2017, 09/03/2015, Additional history exists DTaP,Tdap,and Td Vaccines (2 - Td or Tdap) 09/22/2023 09/21/2013, 11/11/2006 COVID-19 Vaccine ( season) 2023 01/15/2023, 12/05/2021, 09/25/2021, Additional history exists Alcohol/Substance Use Screening 03/01/2024 Depression Screening and Follow-Up 03/01/2024 Health Care Proxy Review 03/01/2024 Social Drivers of Health Annual Screening 03/01/2024 Mammogram 11/28/2025 11/29/2023, 03/02, 03/27/2022 Cologuard 07/03/2026 07/04/2023, 05/0 06/2023, 05/08/2020 Colon Cancer Screening 07/03/2026 Osteoporosis Screening Completed 11/09/2023 Influenza Vaccine Completed 12/03/2023, , 11/24/2019, Additional history exists Hepatitis B Vaccines Aged Out No long er eligible based on patient's age to complete this topic Insurance [facility] Care Teams Seam Press Operator Relationship Specialty Start Date End Date Shantell Romero [address] [place] [phone] PCP - General Family Medicine 08/26/21
--- OUTSIDE RECORDS SUMMARY | 2024-03-29 09:27 | XMS_ITS | Patient Health Record ---
Author Organization [facility] tional Pain Address [address] [place] [address] Care Team Providers Care Paper Stripper Name Role Phone CELSA BAL DO Primary Care Provider MARYELLEN Olivier Unavailable [phone] Allergies Allergen (clinical drug ingredient) Drug/Non Drug Allergy documented on EMR Reaction Allergy Type Onset Date Status Latex Latex Unknown Allergy Active Penicillin Unknown Drug Allergy Active Results Component Value Reference Range Notes BARBITURATES QUANTITATIVE (N ot yet reviewed by provider) Interpretation: Performing Lab:[facility], [address], [place], [place] [id number], Phone - , Director - Eddie Milan MD Notes/Report: Prescribed Medications: No drugs were prescribed. Secobarbital NEGATIVE 100 ng/mL Phenobarbital NEGATIVE 100 ng/mL Butalbital NEGATIVE 100 ng/mL BENZODIAZEPINE QUANTITATIVE (Not yet reviewed by provider) Interpretation: Performing Lab:[facility], [address], [place], [place] [id number], Phone - , Director - Eddie Milan MD Notes/Report: Prescribed Medications: No drugs were prescribed. Flurazepam NEGATIVE 50 ng/mL Midazolam NEGATIVE 50 ng/mL Flunitrazepam NEGATIVE 50 ng/mL BUPRENORPHINE QUANTITATIVE ( Not yet reviewed by provider) Interpretation: Performing Lab:[facility], [address], [place], [place] [id number], Phone - , Director - Eddie Milan MD Notes/Report: Prescribed Medications: No drugs were prescribed. Naloxone NEGATIVE 20 ng/mL MUSCLE RELAXANT, QUANTITATIV E (Not yet reviewed by provider) Interpretation: Performing Lab:[facility], [address], [place], [place] [id number], Phone - , - Eddie Milan MD Notes/Report: Prescribed Medications: No drugs were prescribed. Carisoprodol NEGATIVE 100 ng/mL Meprobamate NEGATIVE 100 ng/mL OPIATES QUANTITATIVE (Not ye t reviewed by provider) Interpretation: Performing Lab:[facility], [address], [place], [place] [phone], Phone - , - Eddie Milan MD Notes/Report: Prescribed Medications: No drugs were prescribed. Norhydrocodone 584 POSITIVE Inconsistent 50 ng/mL Norhydrocodone is metabolite of Hydrocodone. Dihydrocodeine 152 POSITIVE Inconsistent 50 ng/mL Dihydrocodeine is metabolite of Hydrocodone. Its presence is consistent with Hydrocodone. Dihydrocodeine is also available as a prescribed drug (Drocode, DHCplus, Synalgos-DC, Paramol, Remedeine, Trezix) OXYCODONE QUANTITATIVE (Not yet reviewed by provider) Interpretation: Performing Lab:[facility], [address], [place], [place] [id number], Phone - , Director - Eddie Milan MD Notes/Report: Prescribed Medications: No drugs were prescribed. Noroxycodone NEGATIVE 50 ng/mL NITRITEURINE 17 0-199 ug/mL PHURINE 8.4 4.5-9.0 pH SPECIFICGRAVITY 1.011 1.0010-1.0250 CREATININE 67 20-300 mg/dL If CREATININE is <20 mg/dL urine sample should be considered DILUTED. If NITRITE is 200-499 ug/mL the results should be evaluated with caution and possibly be considered invalid. If NITRITE is >499 ug/mL the urine sample should be considered ADULTERATED. If pH is 3.0-4.5 or 9.0-11.0 the results should be evaluated with caution and possibly be considered invalid. If pH is <3.0 or >11.0 the urine sample should be considered ADULTERATED. CREATININE (Not yet reviewed by provider) Interpretation: Performing Lab:[facility], [address], [place], [place] [id number], Phone - , - Eddie Milan MD Notes/Report: Prescribed Medications: No drugs were prescribed. CREATININE 67 20-300 mg/dL If CREATININE is <20 mg/dL urine sample should be considered DILUTED. If NITRITE is 200-499 ug/mL the results should be evaluated with caution and possibly be considered invalid. If NITRITE is >499 ug/mL the urine sample should be considered ADULTERATED. If pH is 3.0-4.5 or 9.0-11.0 the results should be evaluated with caution and possibly be considered invalid. If pH is <3.0 or >11.0 the urine sample should be considered ADULTERATED. LAB REPORT (Not yet reviewed by provider) Interpretation: Performing Lab:[facility], [address], [place], [place] [id number], Phone - , Director - Eddie Milan MD Notes/Report: Prescribed Medications: No drugs were prescribed. PDF LAB CREATININE (Not yet reviewed by provider) Interpretation: Performing Lab:[facility], [address], [place], [place] [id number], Phone - , Director - Eddie Milan MD Notes/Report: Prescribed Medications: Hydrocodone (Hydrocodone-Conc), Morphine (Morphine) CREATININE 146 20-300 mg/dL If CREATININE is <20 mg/dL urine sample should be considered DILUTED. If NITRITE is 200-499 ug/mL the results should be evaluated with caution and possibly be considered invalid. If NITRITE is >499 ug/mL the urine sample should be considered ADULTERATED. If pH is 3.0-4.5 or 9.0-11.0 the results should be evaluated with caution and possibly be considered invalid. If pH is <3.0 or >11.0 the urine sample should be considered ADULTERATED. LAB REPORT (Not yet reviewed by provider) Interpretation: Performing Lab:[facility], [address], [place], [place] [id number], Phone - , - Eddie Milan MD Notes/Report: Prescribed Medications: Hydrocodone (Hydrocodone-Conc), Morphine (Morphine) PDF LAB 6-ACETYLMORPHINE QUANTITATIV E (Not yet reviewed by provider) Interpretation: Performing Lab:[facility], [address], [place], [place] [id number], Phone - , Director - Eddie Milan MD Notes/Report: Prescribed Medications: Hydrocodone (Hydrocodone-Conc), Morphine (Morphine) 6MAM(HeroineMetabolite),U/CFM NEGATIVE 10 ng/mL Amphetamine (Not yet reviewe d by provider) Interpretation: Performing Lab:[facility], [address], [place], [place] [id number], Phone - , Director - Eddie Milan MD Notes/Report: Prescribed Medications: Hydrocodone (Hydrocodone-Conc), Morphine (Morphine) Amphetamine,U/CFM NEGATIVE 100 ng/mL Methamphetamine NEGATIVE 100 ng/mL BENZODIAZEPINE QUANTITATIVE (Not yet reviewed by provider) Interpretation: Performing Lab:[facility], [address], [place], [place] [phone], Phone - , Director - Eddie Milan MD Notes/Report: Prescribed Medications: Hydrocodone (Hydrocodone-Conc), Morphine (Morphine) Alprazolam NEGATIVE 50 ng/mL Alpha-HydroxyAlprazolam NEGATIVE 50 ng/mL Nordiazepam NEGATIVE 50 ng/mL Oxazepam NEGATIVE 50 ng/mL Temazepam NEGATIVE 50 ng/mL Clonazepam NEGATIVE 50 ng/mL 7-AminoClonazepam NEGATIVE 50 ng/mL Lorazepam NEGATIVE 50 ng/mL Flurazepam NEGATIVE 50 ng/mL 2-HydroxyEthylFlurazepam NEGATIVE 50 ng/mL Desalkylflurazepam NEGATIVE 50 ng/mL Midazolam NEGATIVE 50 ng/mL Alpha-Hydroxymidazolam NEGATIVE 50 ng/mL Chlordiazepoxide NEGATIVE 50 ng/mL Diazepam NEGATIVE 50 ng/mL Flunitrazepam NEGATIVE 50 ng/mL COCAINE QUANTITATIVE (Not ye t reviewed by provider) Interpretation: Performing Lab:[facility], [address], [place], [place] [id number], Phone - , - Eddie Milan MD Notes/Report: Prescribed Medications: Hydrocodone (Hydrocodone-Conc), Morphine (Morphine) CocaineMetabolite,U/CFM NEGATIVE 100 ng/ml FENTANYL QUANTITATIVE (Not y et reviewed by provider) Interpretation: Performing Lab:[facility], [address], [place], [place] [id number], Phone - , Director - Eddie Milan MD Notes/Report: Prescribed Medications: Hydrocodone (Hydrocodone-Conc), Morphine (Morphine) Fentanyl NEGATIVE 2 ng/mL Norfentanyl NEGATIVE 10 ng/mL MDMA (ECSTASY) QUANTITATIVE (Not yet reviewed by provider) Interpretation: Performing Lab:[facility], [address], [place], [place] [id number], Phone - , - Eddie Milan MD Notes/Report: Prescribed Medications: Hydrocodone (Hydrocodone-Conc), Morphine (Morphine) MDMA(Ecstasy) NEGATIVE 100 ng/mL MethyleneDioxyEthylAmphe. NEGATIVE 100 ng/mL MethyleneDioxyAmphetamine NEGATIVE 100 ng/mL METHADONE QUANTITATIVE (Not yet reviewed by provider) Interpretation: Performing Lab:[facility], [address], [place], [place] [id number], Phone - , - Eddie Milan MD Notes/Report: Prescribed Medications: Hydrocodone (Hydrocodone-Conc), Morphine (Morphine) Methadone NEGATIVE 50 ng/mL EDDPMethadoneMetabolite NEGATIVE 50 ng/mL MUSCLE RELAXANT, QUANTITATIV E (Not yet reviewed by provider) Interpretation: Performing Lab:[facility], [address], [place], [place] [id number], Phone - , - Eddie Milan MD Notes/Report: Prescribed Medications: Hydrocodone (Hydrocodone-Conc), Morphine (Morphine) Carisoprodol NEGATIVE 100 ng/mL Meprobamate NEGATIVE 100 ng/mL Cyclobenzaprine NEGATIVE 50 ng/mL OPIATES QUANTITATIVE (Not ye t reviewed by provider) Interpretation: Performing Lab:[facility], [address], [place], [place] [id number], Phone - , Director - Eddie Milan MD Notes/Report: Prescribed Medications: Hydrocodone (Hydrocodone-Conc), Morphine (Morphine) Codeine NEGATIVE 50 ng/mL Morphine >1999 POSITIVE Consistent 50 ng/mL Morphine is metabolite of Codeine. Morphine(Avinza, Tara, MS Contin,MSIR, Embeda, Oramorph SR, Rescudos)is also available as a prescription drug. Ingestion of poppy seeds can produce positive Morphine results on a urine drug test. The amount of morphine present is often less than 2,000 ng/mL following poppy seed consumption. Hydrocodone NEGATIVE Consistent 50 ng/mL Hydromorphone 264 POSITIVE Consistent 50 ng/mL Hydromorphone is a metabolite of Hydrocodone. Its presence is consistent with Hydrocodone use. Hydromorphone (Dilaudid) is also available as a prescription drug. Certain patients can metabolize Morphine into Hydromorphone, in which case we would expect to see low levels of Hydromorphone relative to Morphine. Norhydrocodone NEGATIVE Consistent 50 ng/mL Dihydrocodeine NEGATIVE Consistent 50 ng/mL OXYCODONE QUANTITATIVE (Not yet reviewed by provider) Interpretation: Performing Lab:[facility], [address], [place], [place] [id number], Phone - , Director - Eddie Milan MD Notes/Report: Prescribed Medications: Hydrocodone (Hydrocodone-Conc), Morphine (Morphine) Oxycodone NEGATIVE 50 ng/mL Oxymorphone NEGATIVE 50 ng/mL Noroxycodone NEGATIVE 50 ng/mL TRAMADOL QUANTITATIVE (Not y et reviewed by provider) Interpretation: Performing Lab:[facility], [address], [place], [place] [id number], Phone - , Director - Eddie Milan MD Notes/Report: Prescribed Medications: Hydrocodone (Hydrocodone-Conc), Morphine (Morphine) Tramadol NEGATIVE 100 ng/ml O-Desmethyltramadol NEGATIVE 50 ng/mL NITRITEURINE 22 0-199 ug/mL PHURINE 6.1 4.5-9.0 pH SPECIFICGRAVITY 1.019 1.0010-1.0250 CREATININE 146 20-300 mg/dL If CREATININE is <20 mg/dL urine sample should be considered DILUTED. If NITRITE is 200-499 ug/mL the results should be evaluated with caution and possibly be considered invalid. If NITRITE is >499 ug/mL the urine sample should be considered ADULTERATED. If pH is 3.0-4.5 or 9.0-11.0 the results should be evaluated with caution and possibly be considered invalid. If pH is <3.0 or >11.0 the urine sample should be considered ADULTERATED. BUPRENORPHINE QUANTITATIVE ( Not yet reviewed by provider) Interpretation: Performing Lab:[facility], [address], [place], [place] [id number], Phone - , Director - Eddie Milan MD Notes/Report: Prescribed Medications: Hydrocodone (Hydrocodone-Conc), Morphine (Morphine) Naloxone 32 POSITIVE Inconsistent 20 ng/mL Naloxone is one of the active ingredients of Suboxone. Buprenorphine NEGATIVE 10 ng/ml Norbuprenorphine NEGATIVE 10 ng/mL BARBITURATES QUANTITATIVE (N ot yet reviewed by provider) Interpretation: Performing Lab:[facility], [address], [place], [place] [id number], Phone - , Director - Eddie Milan MD Notes/Report: Prescribed Medications: Hydrocodone (Hydrocodone-Conc), Morphine (Morphine) Secobarbital NEGATIVE 100 ng/mL Phenobarbital NEGATIVE 100 ng/mL Butalbital NEGATIVE 100 ng/mL Reason For Referral No Information Medications Medication SIG (Take, Route, Frequency, Duration) Notes Start Date End Date Status Butrans 10 MCG/HR 1 patch to skin Transdermal once a week for 28 days M 47.816 lumbar spondylosis , the patient can request partial refill 04/30/2023 Not-Taking Ibuprofen over the counter Act jennifer Diclofenac 75mg po 2 x day Not -Taking methylPREDNISolone 4 MG as directed Orally 6 days for 6 days 06/11/2023 Not-Taking Montelukast Sodium 10 MG 1 tablet Orally Once a day Active Belbuca 75 MCG 1 film Bucally Once a day prn for 30 days M47.814 Thoracic spondylosis the patient can request partial fill 10/16/2022 Not-Taking oxyBUTYnin Chloride Active Medrol 4 MG as directed Orally daily for 6 days 10/22/2022 Not-Taking Vitamin D 5000 unit once a day Active Gabapentin 600mg Not-Takin g Calcium 1200mg once a day Active Zonisamide 500mg Not-Takin g Medrol 4 MG as directed Orally 1 tablet for 16 days 09/24/2023 Active Trelegy Ellipta Acti ve HYDROcodone-Acetaminoph en 10-325 MG 1 tablet as needed Orally every 8 hrs for 30 days As needed Partial Fill upon Patient Request 10/22/2023 Active Lidocaine patch Unknown Pregabalin 200 MG 1 capsule Orally twice a day for 30 days 1500mg 09/24/2023 Active Ventolin HFA Active HYDROcodone-Acetaminoph en 5-325 MG 1 tablet as needed Orally every 12 hours for 30 days As needed Partial Fill upon Patient Request 03/22/2024 Active Morphine Sulfate ER 15 MG 1 tablet Orally every 8 hrs for 30 days Partial Fill upon Patient Request 04/04/2024 Active Robaxin 1000 MG/10ML 10 mL as needed Injection every 8 hrs 1500mg Active Pravastatin Sodium 20 MG 1 tablet Orally Once a day Active Losartan Potassium 50 MG 1 tablet Orally Once a day 50mg Active Keppra 1000 MG 1 tablet Orally every 12 hrs 750mg Active Acarbose 50 MG as directed Orally Active ZyrTEC Active ZTlido 1.8 % 1 patch remove after 12 hours Externally Once a day for 30 days Not-Taking fentaNYL 12 MCG/HR 1 patch to skin Transdermal every 72 hours for 30 days Partial Fill upon Patient Request 06/11/2023 Not-Taking Daliresp 500 MCG 1 tablet Orally Once a day 500mg Active HYDROcodone-Acetaminoph en 10-325 MG 1 tablet Orally every 8 hrs prn for 30 days As needed Partial Fill upon Patient Request 12/02/2023 Active Social History Tobacco Use: Social History Observation Description Date Details (start date - stop date) Never Smoker NA - NA Tobacco Control (Standard) Question Answer Notes Tobacco use: Nonsmoker Problems Problem Type SNOMED Code ICD Code Onset Dates Problem Status W/U Status Risk Notes Problem Solitary sacroiliitis (551003002) Sacroiliitis, not elsewhere classified (M46.1) Active confirmed Problem Thoracic spondylosis without myelopathy (906803619) Spondylosis without myelopathy or radiculopathy, thoracic region (M47.814) Active confirmed Problem Lumbosacral spondylosis without myelopathy (49923295) Spondylosis without myelopathy or radiculopathy, lumbar region (M47.816) Active confirmed Problem Lumbosacral spondylosis without myelopathy (disorder) (10805968) Spondylosis without myelopathy or radiculopathy, lumbosacral region (M47.817) Active confirmed Problem Degeneration of lumbar intervertebral disc (80720099) Other intervertebral disc degeneration, lumbar region (M51.36) Active confirmed Problem Thoracic radiculopathy (86816857) Radiculopathy, thoracic region (M54.14) Active confirmed Problem Lumbar radiculopathy (972824378) Radiculopathy, lumbar region (M54.16) Active confirmed Vital Signs Heart Rate 67 /min 03/22/2024 Temperature 97.2 degrees Fahrenheit 03/22/2024 Oximetry 97 % 03/22/2024 Blood pressure diastolic 78 mm Hg 03/22/2024 Height 59 in 03/22/2024 Blood pressure systolic 119 mm Hg 03/22/2024 Weight 149 lbs 03/22/2024 BMI 30.09 kg/m2 03/22/2024 Encounters Encounter Location Date Provider Diagnosis [facility] [address] [address] 04/02/2023 MARYELLEN FARID Radiculopathy, lumbar region M54.16 ; Other jail (current) drug therapy Z79.899 and watermelon 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 of opiate analgesic Z79.891 [facility] [address] [address] 04/30/2023 MRAYELLEN FARID Other jail (current) drug therapy Z79.899 ; custodial (current) use of opiate analgesic Z79.891 and Radiculopathy, thoracic region M54.[address] [address] 05/26/2023 MARYELLEN FARID Other intermediate project manager (current) drug therapy Z79.899 ; custodial (current) use of opiate analgesic Z79.891 and Radiculopathy, thoracic region M54.14 [facility] [address] [place] [phone] 06/11/2023 MARYELLEN FARID Other intermediate project manager (current) drug therapy Z79.899 ; custodial (current) use of opiate analgesic Z79.891 and Radiculopathy, thoracic region M54.14 [facility] [address] [address] 07/09/2023 MARYELLEN FARID Other intermediate project manager (current) drug therapy Z79.899 ; watermelon 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 of opiate analgesic Z79.891 ; Radiculopathy, thoracic region M54.14 and Spondylosis without myelopathy or radiculopathy, lumbar region M47.816 [facility] [address] [address] 08/20/2023 MARYELLEN FARID Other jail (current) drug therapy Z79.899 ; watermelon 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 of opiate analgesic Z79.891 ; Radiculopathy, thoracic region M54.14 and Spondylosis without myelopathy or radiculopathy, lumbar region M47.816 [facility] [address] [place] [phone] 09/17/2023 MARYELLEN FARID Other jail (current) drug therapy Z79.899 ; watermelon 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 of opiate analgesic Z79.891 ; Radiculopathy, thoracic region M54.14 ; Spondylosis without myelopathy or radiculopathy, lumbar region M47.816 and Spondylosis without myelopathy or radiculopathy, thoracic region M47.814 [facility] [address] [place] [phone] 09/24/2023 MARYELLEN FARID Other jail (current) drug therapy Z79.899 ; watermelon 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 of opiate analgesic Z79.891 ; Radiculopathy, thoracic region M54.14 ; Spondylosis without myelopathy or radiculopathy, lumbar region M47.816 and Spondylosis without myelopathy or radiculopathy, thoracic region M47.814 [facility] [address] [address] 10/22/2023 MARYELLEN ORDAZID Other jail (current) drug therapy Z79.899 ; custodial (current) use of opiate analgesic Z79.891 ; Radiculopathy, thoracic region M54.14 ; Spondylosis without myelopathy or radiculopathy, lumbar region M47.816 and Spondylosis without myelopathy or radiculopathy, thoracic region M47.814 [facility] [address] [address] 11/26/2023 MARYELLEN BYERS Other intermediate project manager (current) drug therapy Z79.899 ; custodial (current) use of opiate analgesic Z79.891 ; Radiculopathy, thoracic region M54.14 ; Spondylosis without myelopathy or radiculopathy, lumbar region M47.816 ; Spondylosis without myelopathy or radiculopathy, thoracic region M47.814 and Sacroiliitis, not elsewhere classified M46.1 [facility] [address] [address] 12/24/2023 MARYELLEN BYERS Other intermediate project manager (current) drug therapy Z79.899 ; custodial (current) use of opiate analgesic Z79.891 ; Radiculopathy, thoracic region M54.14 ; Spondylosis without myelopathy or radiculopathy, lumbar region M47.816 ; Spondylosis without myelopathy or radiculopathy, thoracic region M47.814 ; Sacroiliitis, not elsewhere classified M46.1 and Foot drop, unspecified foot M21.379 [facility] [address] [address] 01/26/2024 MARYELLEN ORDAZID Other intermediate project manager (current) drug therapy Z79.899 ; watermelon 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 of opiate analgesic Z79.891 ; Radiculopathy, thoracic region M54.14 ; Spondylosis without myelopathy or radiculopathy, lumbar region M47.816 ; Spondylosis without myelopathy or radiculopathy, thoracic region M47.814 ; Sacroiliitis, not elsewhere classified M46.1 ; Foot drop, unspecified foot M21.379 and Radiculopathy, lumbar region M54.16 [facility] [address] [address] 02/09/2024 MARYELLENEZRA ORDAZID Other jail (current) drug therapy Z79.899 ; custodial (current) use of opiate analgesic Z79.891 ; Radiculopathy, thoracic region M54.14 ; Spondylosis without myelopathy or radiculopathy, lumbar region M47.816 ; Spondylosis without myelopathy or radiculopathy, thoracic region M47.814 ; Sacroiliitis, not elsewhere classified M46.1 ; Foot drop, unspecified foot M21.379 and Radiculopathy, lumbar region M54.16 [facility] [address] [address] 03/22/2024 MARYELLENEZRA ORDAZID Other jail (current) drug therapy Z79.899 ; watermelon 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 of opiate analgesic Z79.891 ; Radiculopathy, thoracic region M54.14 ; Spondylosis without myelopathy or radiculopathy, lumbar region M47.816 ; Spondylosis without myelopathy or radiculopathy, thoracic region M47.814 ; Sacroiliitis, not elsewhere classified M46.1 ; Foot drop, unspecified foot M21.379 and Radiculopathy, lumbar region M54.16 [facility] [address] [place] [phone] 04/02/2023 [facility] Radiculopathy, lumbar region M54.16 [facility] [address] [place] [phone] 04/22/2023 [facility] [address] [address] 05/26/2023 [facility] [address] [place] [phone] 06/18/2023 [facility] [address] [place] [address] 06/18/2023 MARYELLEN FARID [facility] [place] [address] 08/10/2023 MARYELLEN FARID [facility] [place] [address] 08/10/2023 MARYELLEN FARID Other jail (current) drug therapy Z79.899 [facility] [address] [address] 08/20/2023 MARYELLEN FARID Other intermediate project manager (current) drug therapy Z79.899 [facility] [address] [place] [address], [place] [address] 09/01/2023 MARYELLEN FARID Other jail (current) drug therapy Z79.899 [facility] [address] [place] [address], [place] [address] 09/17/2023 MARYELLEN FARID Other jail (current) drug therapy Z79.899 [facility] [address] [place] [address], [place] [address] 09/24/2023 MARYELLEN FARID [facility] [address] [place] [address], [place] [address] 10/07/2023 MARYELLEN FARID Other intermediate project manager (current) drug therapy Z79.899 [facility] [address] [place] [address], [place] [address] 10/22/2023 MARYELLEN FARID Other intermediate project manager (current) drug therapy Z79.899 [facility] [address] [place] [address], [place] [address] 10/22/2023 MARYELLEN FARID [facility] [address] [place] [address], [place] [address] 10/22/2023 MARYELLEN FARID Other intermediate project manager (current) drug therapy Z79.899 [facility] [address] [place] [address], [place] [address] 11/02/2023 MARYELLEN FARID Other jail (current) drug therapy Z79.899 [facility] [address] [place] [address], [place] [address] 11/22/2023 MARYELLEN FARID Other intermediate project manager (current) drug therapy Z79.899 [facility] [address] [place] [address], [place] [address] 11/26/2023 MARYELLEN FARID Other intermediate project manager (current) drug therapy Z79.899 [facility] [place] [address] 12/24/2023 MARYELLEN FARID Other intermediate project manager (current) drug therapy Z79.899 [facility] [place] [address] 01/24/2024 MARYELLEN FARID [facility] [address] [place] [address], [place] [address] 01/24/2024 MARYELLEN FARID Other intermediate project manager (current) drug therapy Z79.899 [facility] [address] [place] [address], [place] [address] 01/26/2024 MARYELLEN FARID Other jail (current) drug therapy Z79.899 [facility] [address] [place] [address], [place] [address] 02/09/2024 MARYELLEN FARID Other jail (current) drug therapy Z79.899 [facility] [address] [place] [address], [place] [address] 02/09/2024 MARYELLEN FARID [facility] [address] [place] [address], [place] [address] 03/22/2024 MARYELLEN FARID Other jail (current) drug therapy Z79.899 [facility] [address] [place] [address] 09/17/2023 MARYELLEN FARID [facility] [address] [place] [phone] 11/27/2023 MARYELLEN FARID [facility] [address] [place] [phone] 01/26/2024 MARYELLEN FARID [facility] [address] [place] [address] 02/15/2024 MARYELLEN FARID [facility] [address] [place] [phone] 03/23/2024 MARYELLEN FARID [facility] [address] [place] [address] 03/23/2024 MARYELLEN SUSHMAYIFAN Assessments Encounter Date Diagnosis (ICD Code) Assessment Notes Treatment Notes Treatment Clinical Notes Section Notes 04/02/2023 Radiculopathy, lumbar region (ICD-10 - M54.16) Regarding medication management, I reviewed the patient's prescription monitoring program it was appropriate, we stopped belbuca and started the patient on Butrans patch, I we will also change the patient's lidocaine patches to Zt lido hopefully it helps her betterRegarding physical therapy, continue physical therapy exercises Regarding the thoracic pain the patient is reporting good relief of pain in that area so there is no need for interventions for that area at this point I recommended physical therapy exercises Regarding interventional procedures, I reviewed the patient's thoracic MRI that revealed T5 hemangioma , I recommended to the patient to return back to a spine surgeon for second opinion but she is asking for a treatment in our clinic,we will try to research treatments to help relief her pain 04/02/2023 Radiculopathy, lumbar region (ICD-10 - M54.16) 04/30/2023 Other intermediate project manager (current) drug therapy (ICD-10 - Z79.899) 05/26/2023 Other jail (current) drug therapy (ICD-10 - Z79.899) 06/11/2023 Other jail (current) drug therapy (ICD-10 - Z79.899) 07/09/2023 Other intermediate project manager (current) drug therapy (ICD-10 - Z79.899) 08/10/2023 Other jail (current) drug therapy (ICD-10 - Z79.899) 08/20/2023 Other intermediate project manager (current) drug therapy (ICD-10 - Z79.899) 08/20/2023 Other intermediate project manager (current) drug therapy (ICD-10 - Z79.899) 09/01/2023 Other intermediate project manager (current) drug therapy (ICD-10 - Z79.899) 09/17/2023 Other jail (current) drug therapy (ICD-10 - Z79.899) 09/17/2023 Other intermediate project manager (current) drug therapy (ICD-10 - Z79.899) 09/24/2023 Other intermediate project manager (current) drug therapy (ICD-10 - Z79.899) 10/07/2023 Other jail (current) drug therapy (ICD-10 - Z79.899) 10/22/2023 Other intermediate project manager (current) drug therapy (ICD-10 - Z79.899) 10/22/2023 Other intermediate project manager (current) drug therapy (ICD-10 - Z79.899) 10/22/2023 Other jail (current) drug therapy (ICD-10 - Z79.899) 11/02/2023 Other intermediate project manager (current) drug therapy (ICD-10 - Z79.899) 11/22/2023 Other jail (current) drug therapy (ICD-10 - Z79.899) 11/26/2023 Other intermediate project manager (current) drug therapy (ICD-10 - Z79.899) 11/26/2023 Other jail (current) drug therapy (ICD-10 - Z79.899) 12/24/2023 Other jail (current) drug therapy (ICD-10 - Z79.899) 12/24/2023 Other intermediate project manager (current) drug therapy (ICD-10 - Z79.899) 01/24/2024 Other intermediate project manager (current) drug therapy (ICD-10 - Z79.899) 01/26/2024 Other jail (current) drug therapy (ICD-10 - Z79.899) 01/26/2024 Other jail (current) drug therapy (ICD-10 - Z79.899) 02/09/2024 Other intermediate project manager (current) drug therapy (ICD-10 - Z79.899) 02/09/2024 Other jail (current) drug therapy (ICD-10 - Z79.899) 03/22/2024 Other intermediate project manager (current) drug therapy (ICD-10 - Z79.899) 03/22/2024 Other jail (current) drug therapy (ICD-10 - Z79.899) 03/22/2024 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 of opiate analgesic (ICD-10 - Z79.891) I reviewed the patient's x-ray studies for the thoracic spine done on 08/12/2023 today that revealed mild diffuse thoracic degenerative disc disease severe at C5-6 disc mild thoracic kyphosis bone osteopenia, cervical MRI done on 08/11/2023 revealed severe left neural foraminal stenosis at C2-3, severe right neural foraminal stenosis at C3-4 and 45, multilevel degenerative disc disease and uncovertebral hypertrophy arthropathy and facet arthropathy there is anterolisthesis of C3 on C4 mild reversal of cervical lordosis as well 02/09/2024 watermelon 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 of opiate analgesic (ICD-10 - Z79.891) I reviewed the patient's x-ray studies for the thoracic spine done on 08/12/2023 today that revealed mild diffuse thoracic degenerative disc disease severe at C5-6 disc mild thoracic kyphosis bone osteopenia, cervical MRI done on 08/11/2023 revealed severe left neural foraminal stenosis at C2-3, severe right neural foraminal stenosis at C3-4 and 45, multilevel degenerative disc disease and uncovertebral hypertrophy arthropathy and facet arthropathy there is anterolisthesis of C3 on C4 mild reversal of cervical lordosis as well 12/24/2023 watermelon 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 of opiate analgesic (ICD-10 - Z79.891) I reviewed the patient's x-ray studies for the thoracic spine done on 08/12/2023 today that revealed mild diffuse thoracic degenerative disc disease severe at C5-6 disc mild thoracic kyphosis bone osteopenia, cervical MRI done on 08/11/2023 revealed severe left neural foraminal stenosis at C2-3, severe right neural foraminal stenosis at C3-4 and 45, multilevel degenerative disc disease and uncovertebral hypertrophy arthropathy and facet arthropathy there is anterolisthesis of C3 on C4 mild reversal of cervical lordosis as well 01/26/2024 custodial (current) use of opiate analgesic (ICD-10 - Z79.891) I reviewed the patient's x-ray studies for the thoracic spine done on 08/12/2023 today that revealed mild diffuse thoracic degenerative disc disease severe at C5-6 disc mild thoracic kyphosis bone osteopenia, cervical MRI done on 08/11/2023 revealed severe left neural foraminal stenosis at C2-3, severe right neural foraminal stenosis at C3-4 and 45, multilevel degenerative disc disease and uncovertebral hypertrophy arthropathy and facet arthropathy there is anterolisthesis of C3 on C4 mild reversal of cervical lordosis as well 11/26/2023 custodial (current) use of opiate analgesic (ICD-10 - Z79.891) I reviewed the patient's x-ray studies for the thoracic spine done on 08/12/2023 today that revealed mild diffuse thoracic degenerative disc disease severe at C5-6 disc mild thoracic kyphosis bone osteopenia, cervical MRI done on 08/11/2023 revealed severe left neural foraminal stenosis at C2-3, severe right neural foraminal stenosis at C3-4 and 45, multilevel degenerative disc disease and uncovertebral hypertrophy arthropathy and facet arthropathy there is anterolisthesis of C3 on C4 mild reversal of cervical lordosis as well 10/22/2023 watermelon 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 of opiate analgesic (ICD-10 - Z79.891) I reviewed the patient's x-ray studies for the thoracic spine done on 08/12/2023 today that revealed mild diffuse thoracic degenerative disc disease severe at C5-6 disc mild thoracic kyphosis bone osteopenia, cervical MRI done on 08/11/2023 revealed severe left neural foraminal stenosis at C2-3, severe right neural foraminal stenosis at C3-4 and 45, multilevel degenerative disc disease and uncovertebral hypertrophy arthropathy and facet arthropathy there is anterolisthesis of C3 on C4 mild reversal of cervical lordosis as well 09/24/2023 watermelon 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 of opiate analgesic (ICD-10 - Z79.891) I reviewed the patient's x-ray studies for the thoracic spine done on 08/12/2023 today that revealed mild diffuse thoracic degenerative disc disease severe at C5-6 disc mild thoracic kyphosis bone osteopenia, cervical MRI done on 08/11/2023 revealed severe left neural foraminal stenosis at C2-3, severe right neural foraminal stenosis at C3-4 and 45, multilevel degenerative disc disease and uncovertebral hypertrophy arthropathy and facet arthropathy there is anterolisthesis of C3 on C4 mild reversal of cervical lordosis as well 09/17/2023 watermelon 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 of opiate analgesic (ICD-10 - Z79.891) I reviewed the patient's x-ray studies for the thoracic spine done on 08/12/2023 today that revealed mild diffuse thoracic degenerative disc disease severe at C5-6 disc mild thoracic kyphosis bone osteopenia, cervical MRI done on 08/11/2023 revealed severe left neural foraminal stenosis at C2-3, severe right neural foraminal stenosis at C3-4 and 45, multilevel degenerative disc disease and uncovertebral hypertrophy arthropathy and facet arthropathy there is anterolisthesis of C3 on C4 mild reversal of cervical lordosis as well 08/20/2023 watermelon 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 of opiate analgesic (ICD-10 - Z79.891) I reviewed the patient's x-ray studies for the thoracic spine done on 08/12/2023 today that revealed mild diffuse thoracic degenerative disc disease severe at C5-6 disc mild thoracic kyphosis bone osteopenia, cervical MRI done on 08/11/2023 revealed severe left neural foraminal stenosis at C2-3, severe right neural foraminal stenosis at C3-4 and 45, multilevel degenerative disc disease and uncovertebral hypertrophy arthropathy and facet arthropathy there is anterolisthesis of C3 on C4 mild reversal of cervical lordosis as well 07/09/2023 custodial (current) use of opiate analgesic (ICD-10 - Z79.891) 05/26/2023 custodial (current) use of opiate analgesic (ICD-10 - Z79.891) 06/11/2023 custodial (current) use of opiate analgesic (ICD-10 - Z79.891) 04/02/2023 Other intermediate project manager (current) drug therapy (ICD-10 - Z79.899) 04/30/2023 watermelon 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 of opiate analgesic (ICD-10 - Z79.891) 05/26/2023 Radiculopathy, thoracic region (ICD-10 - M54.14) regarding medication management, I checked the prescription monitoring program it was appropriate, I told the patient that she can use 2 patches every 7 days and if it's helping her we will refill her in the future that dose Regarding physical therapy, continue physical therapy exercises Regarding interventional procedures, the patient has tried nonsteroidals, Tylenol, physical therapy exercises for the last 3 months with no relief she has functional difficulty sitting and sleeping due to the pain pain score is more than VAS of 6 she has a T5 hemangioma that apparently painfull and the pain is radiating bilaterally in a nondermatomal fashion,and physical exam revealed positive tenderness on palpating that area, based on this we will offer the patient trial of thoracic epidural steroid injection to help relieve the pain, based on this we will offer the patient trial of thoracic epidural steroid injection to help relieve the pain today 04/30/2023 Radiculopathy, thoracic region (ICD-10 - M54.14) 04/02/2023 watermelon 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 of opiate analgesic (ICD-10 - Z79.891) 06/11/2023 Radiculopathy, thoracic region (ICD-10 - M54.14) regarding medication management, I checked the prescription monitoring program it was appropriate, I I changed the patient's medications to fentanyl patch 12 mics every 72 hours I started the patient on Medrol Dosepak to help the flareup of pain Regarding physical therapy, continue physical therapy exercises Regarding interventional procedures,for the thoracic spine, I'm referring the patient to a spine surgeon for second opinion since the patient did not improve with epidural steroid injection regarding the lumbar pain, the patient's lumbar MRI, done in March of 2023 revealed L3-4, L4-5 facet degeneration and degenerative changes the patient is having functional difficulties driving,standing, walking, sleeping, working due to the lumbar pain, the patient has positive bilateral lumbar facet loading test on exam negative straight leg raising test pain score is more than VAS of 6 she has tried nonsteroidals, Tylenol, physical therapy exercises for the last 3 months with no relief based on that I'm requesting authorization for a trial of diagnostic bilateral lumbar L3-4, L4-5 #2 lumbar facet joint medial branch blocks 11287, 99667 bilaterally if successful the patient might be eligible for radiofrequency ablation in the future 07/09/2023 Radiculopathy, thoracic region (ICD-10 - M54.14) regarding medication management, I checked the prescription monitoring program it was appropriate, the last urine drug screen test done on 06/06/2023 was negative for any pain medications which is appropriate the patient is reporting that current doses of hydrocodone is not strong enough at night, so I increased her to one half tablet at night and 1 tablet in the morning Regarding physical therapy, continue physical therapy exercises Regarding interventional procedures,for the thoracic spine, I'm referring the patient to a spine surgeon for second opinion since the patient did not improve with epidural steroid injection regarding the lumbar pain, the patient's lumbar MRI, done in March of 2023 revealed L3-4, L4-5 facet degeneration and degenerative changes the patient is having functional difficulties driving,standing, walking, sleeping, working due to the lumbar pain, the patient has positive bilateral lumbar facet loading test on exam negative straight leg raising test pain score is more than VAS of 6 she has tried nonsteroidals, Tylenol, physical therapy exercises for the last 4 months with no relief, the patient had a successful diagnostic lumbar medial branch block on 07/09/2023 the procedure offered the patient 90% reduction of pain improve mobility activity analgesia range of motion and ability to bend, twist, rotate, hyperextend the lumbar spine without pain or 1 hour after the procedure during that period of time the pain score dropped from pain score of 8 to pain score of 1 but the pain recurred after that and pain score prior to discharge is VAS of 6, based on that I'm requesting authorization for a trial of the second diagnostic bilateral lumbar L4-5 ,L5-S1 #2 lumbar facet joint medial branch blocks 64958, 97156 bilaterally if successful the patient might be eligible for radiofrequency ablation in the future 08/20/2023 Radiculopathy, thoracic region (ICD-10 - M54.14) regarding medication management, I checked the prescription monitoring program it was appropriate, the last urine drug screen test done on 06/06/2023 was negative for any pain medications which is appropriate the patient is reporting that she is not well controlled during the day the prescription does not loss of hours so I change it to hydrocodone APAP one by mouth 3 times a day Regarding physical therapy, continue physical therapy exercises Regarding interventional procedures,for the thoracic spine, I'm referring the patient to a spine surgeon for second opinion since the patient did not improve with epidural steroid injection regarding the lumbar pain, the patient's lumbar MRI, done in March of 2023 revealed L3-4, L4-5 facet degeneration and degenerative changes the patient is having functional difficulties driving,standing, walking, sleeping, working due to the lumbar pain, the patient has positive bilateral lumbar facet loading test on exam negative straight leg raising test pain score is more than VAS of 6 she has tried nonsteroidals, Tylenol, physical therapy exercises for the last 4 months with no relief, the patient had 2 successful diagnostic lumbar medial branch blocks on 07/09/2023 and on 08/20/23 the procedures offered the patient 90% reduction of pain improve mobility activity analgesia range of motion and ability to bend, twist, rotate, hyperextend the lumbar spine without pain for one week after the first diagnostic block and for 1 hour after the second diagnostic block during that period of time the pain score dropped from pain score of 8 to pain score of 1 after each diagnostic blockbut the pain recurred after that and pain score prior to discharge is VAS of 6, based on that I'm requesting authorization for a trial of the bilateral lumbar L4-5 ,L5-S1 #2 lumbar facet joint medial branchs radiofrequency ablation 33281, 64609 bilaterally 09/17/2023 Radiculopathy, thoracic region (ICD-10 - M54.14) regarding medication management, I checked the prescription monitoring program it was appropriate, the last urine drug screen test done on 06/06/2023 was negative for any pain medications which is appropriate the patient is reporting that current doses are more effective, so we refilled hydrocodone APAP one by mouth 3 times a day Regarding physical therapy, continue physical therapy exercises Regarding interventional procedures,for the thoracic spine, I'm referring the patient to a spine surgeon for second opinion since the patient did not improve with epidural steroid injection regarding the lumbar pain, the patient's lumbar MRI, done in March of 2023 revealed L3-4, L4-5 facet degeneration and degenerative changes the patient is having functional difficulties driving,standing, walking, sleeping, working due to the lumbar pain, the patient has positive bilateral lumbar facet loading test on exam negative straight leg raising test pain score is more than VAS of 6 she has tried nonsteroidals, Tylenol, physical therapy exercises for the last 4 months with no relief, the patient had 2 successful diagnostic lumbar medial branch blocks on 07/09/2023 and on 08/20/23 the procedures offered the patient 90% reduction of pain improve mobility activity analgesia range of motion and ability to bend, twist, rotate, hyperextend the lumbar spine without pain for one week after the first diagnostic block and for 1week after the second diagnostic block during that period of time the pain score dropped from pain score of 8 to pain score of 1 after each diagnostic block but the pain returned after that and pain score today is VAS of more than 6, based on that we will offer the patient a trial of bilateral lumbar L4-5 ,L5-S1 #2 lumbar facet joint medial branchs radiofrequency ablation 75046, 27583 bilaterally 09/24/2023 Radiculopathy, thoracic region (ICD-10 - M54.14) regarding medication management, I checked the prescription monitoring program it was appropriate, the last urine drug screen test done on 06/06/2023 was negative for any pain medications which is appropriate the patient continues to be on hydrocodone APAP was moderate to good relief of pain Regarding physical therapy, continue physical therapy exercises regarding the lumbar pain,I reviewed the patient's lumbar MRI done on 03/03/2023 that revealed right L4-5 foramina narrowing, this could be explaining her symptoms, I reassured the patient since she has negative lumbar facet loading test on exam today and no sign of infection or in duration, the weakness could be from discomfort from the procedure, I increased the patient's Lyrica to 50 mg 3 times a day the patient requested a Medrol Dosepak we prescribed that for her today, I told her to observe her weakness as well as incontinence if there is worsening of symptoms he might do another MRI or refer her to a spine surgeon for second opinion the patient said that she already saw a spine surgeon would doesn't think she needs interventional surgery, I offered to refer him to physical therapy she refrained at this point, but if she continues to be in weakness in the lower extremity by next month she will be open to the idea of physical therapy 10/22/2023 Radiculopathy, thoracic region (ICD-10 - M54.14) regarding medication management, I checked the prescription monitoring program it was appropriate, the last urine drug screen test done on 06/06/2023 was negative for any pain medications which is appropriate the patient continues to be on hydrocodone APAP was moderate to good relief of pain I refilled her 1 tablet 3 times a day Regarding physical therapy, continue physical therapy exercises regarding the lumbar pain,the patient is reporting 90% relief of pain after the last lumbar radiofrequency ablation procedure she can walk and stand better now compared to before so there is no need for interventions for the lumbar spine at this point I recommended physical therapy exercises her complaine of the lower extremity weakness have subsided now 11/26/2023 Radiculopathy, thoracic region (ICD-10 - M54.14) regarding medication management, I checked the prescription monitoring program it was appropriate, the last urine drug screen test done on 06/06/2023 was negative for any pain medications which is appropriate the patient's pain is not controlled by short pain medications short acting pain medications so we will prescribe for her morphine sulfate 15 mg 1 p.o. twice daily Regarding physical therapy, continue physical therapy exercises regarding the lumbar pain,the patient is reporting 90% relief of pain after the last lumbar radiofrequency ablation procedure she can walk and stand better now compared to before so there is no need for interventions for the lumbar spine at this point I recommended physical therapy exercises her complaine of the lower extremity weakness have subsided now 01/26/2024 Radiculopathy, thoracic region (ICD-10 - M54.14) regarding medication management, I checked the prescription monitoring program it was appropriate, the last urine drug screen test done on 06/06/2023 was negative for any pain medications which is appropriate the patient's pain is not controlled by short pain medications short acting pain medications so we will prescribe for her morphine sulfate 15 mg 1 p.o. every 8 hours instead of every 12 hours for better coverage Regarding physical therapy, continue physical therapy exercises Regarding radiological studies, I reviewed the patient's lumbar MRI done on 12/31/2023 that revealed right L4 and right L5 hypertrophic changes and epidural lipomatosis moderate right neural foraminal stenosis as a result of that multilevel degenerative disc disease in the lumbar spine regarding the lumbar pain,the patient is reporting 90% relief of pain after the last lumbar radiofrequency ablation procedure she can walk and stand better now compared to before so there is no need for interventions for the lumbar spine at this point I recommended physical therapy exercises her complaine of the lower extremity weakness have subsided now 12/24/2023 Radiculopathy, thoracic region (ICD-10 - M54.14) regarding medication management, I checked the prescription monitoring program it was appropriate, the last urine drug screen test done on 06/06/2023 was negative for any pain medications which is appropriate the patient's pain is not controlled by short pain medications short acting pain medications so we will prescribe for her morphine sulfate 15 mg 1 p.o. twice daily Regarding physical therapy, continue physical therapy exercises regarding the lumbar pain,the patient is reporting 90% relief of pain after the last lumbar radiofrequency ablation procedure she can walk and stand better now compared to before so there is no need for interventions for the lumbar spine at this point I recommended physical therapy exercises her complaine of the lower extremity weakness have subsided now 02/09/2024 Radiculopathy, thoracic region (ICD-10 - M54.14) regarding medication management, I checked the prescription monitoring program it was appropriate, the last urine drug screen test done on 06/06/2023 was negative for any pain medications which is appropriate the patient's pain is not controlled by short pain medications short acting pain medications so we will prescribe for her morphine sulfate 15 mg 1 p.o. every 8 hours instead of every 12 hours for better coverage Regarding physical therapy, continue physical therapy exercises Regarding radiological studies, I reviewed the patient's lumbar MRI done on 12/31/2023 that revealed right L4 and right L5 hypertrophic changes and epidural lipomatosis moderate right neural foraminal stenosis as a result of that multilevel degenerative disc disease in the lumbar spine regarding the lumbar pain,the patient is reporting 90% relief of pain after the last lumbar radiofrequency ablation procedure she can walk and stand better now compared to before so there is no need for interventions for the lumbar spine at this point I recommended physical therapy exercises her complaine of the lower extremity weakness have subsided now 03/22/2024 Radiculopathy, thoracic region (ICD-10 - M54.14) regarding medication management, I checked the prescription monitoring program it was appropriate, the last urine drug screen test done on 02/10/2024 was positive for hydrocodone only the patient is saying that she takes morphine regularly she is surprised with the results so we ordered another urine drug screen test today patient is reporting that current regimen is controlling the pain for most of the days except for 3 to 4 days a month so we will continue same regimen at this point since there is no side effects and good control until we get her controlled by interventional procedures and start weaning her off narcotic pain medications so we will prescribe for her morphine sulfate 15 mg 1 p.o. every 8 hours instead of every 12 hours for better coverage Regarding physical therapy, continue physical therapy exercises Regarding radiological studies, I reviewed the patient's lumbar MRI done on 12/31/2023 that revealed right L4 and right L5 hypertrophic changes and epidural lipomatosis moderate right neural foraminal stenosis as a result of that multilevel degenerative disc disease in the lumbar spine regarding the lumbar pain,the patient is reporting 90% relief of pain after the last lumbar radiofrequency ablation procedure for 6-month she was able to stand, walk, sleep, cook, clean, work without lumbar pain for the last 6 months continued physical therapy exercises, for the last 6 months but the pain recurred again last week she has functional difficulty standing, walking, sleeping, cooking, cleaning due to the lumbar pain there is no pain at this point in the lower extremities so I do not believe she would benefit from epidural steroid injection, we did not do the epidural steroid injection at this point the patient was found to have positive bilateral number facet loading test on exam negative straight leg raising test pain score is more than VAS of 6 based on that I will request authorization for repeating bilateral lumbar L4-5, L5-S1 #2 facet joints medial branch radiofrequency ablation 06897, 12547 bilateral score today is VAS of 6 03/22/2024 Spondylosis without myelopathy or radiculopathy, lumbar region (ICD-10 - M47.816) 02/09/2024 Spondylosis without myelopathy or radiculopathy, lumbar region (ICD-10 - M47.816) 01/26/2024 Spondylosis without myelopathy or radiculopathy, lumbar region (ICD-10 - M47.816) 11/26/2023 Spondylosis without myelopathy or radiculopathy, lumbar region (ICD-10 - M47.816) 10/22/2023 Spondylosis without myelopathy or radiculopathy, lumbar region (ICD-10 - M47.816) 12/24/2023 Spondylosis without myelopathy or radiculopathy, lumbar region (ICD-10 - M47.816) 09/17/2023 Spondylosis without myelopathy or radiculopathy, lumbar region (ICD-10 - M47.816) 09/24/2023 Spondylosis without myelopathy or radiculopathy, lumbar region (ICD-10 - M47.816) 07/09/2023 Spondylosis without myelopathy or radiculopathy, lumbar region (ICD-10 - M47.816) 08/20/2023 Spondylosis without myelopathy or radiculopathy, lumbar region (ICD-10 - M47.816) 09/17/2023 Spondylosis without myelopathy or radiculopathy, 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) the patient is reporting recurrence of pain in the thoracic spine for the last month the last thoracic medial branch radio frequency ablation she is reporting was done on 10/16/2022 offered the patient more than 10 month of 90% relief of pain improve mobility activity analgesia range of motion and ability to sit and sleep without thoracic pain continued physical therapy exercises for the last 12 months but the pain recurred again last 4 weeks she has positive bilateral thoracic facet loading test on exam negative straight leg raising test positive bilateral thoracic paravertebral area tenderness at T9/10/11/12, pain score is more than VAS of 6 in that area based on that I'm requesting authorization for repeating bilateral thoracic T9-10, T10-11 #2 facet joints,medial branches radiofrequency ablation [id number], [id number] 09/24/2023 Spondylosis without myelopathy or radiculopathy, 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) the patient is reporting recurrence of pain in the thoracic spine for the last month the last thoracic medial branch radio frequency ablation she is reporting was done on 10/16/2022 offered the patient more than 10 month of 90% relief of pain improve mobility activity analgesia range of motion and ability to sit and sleep without thoracic pain continued physical therapy exercises for the last 12 months but the pain recurred again last 4 weeks she has positive bilateral thoracic facet loading test on exam negative straight leg raising test positive bilateral thoracic paravertebral area tenderness at T9//12, pain score is more than VAS of 6 in that area based on that I'm requesting authorization for repeating bilateral thoracic T9-10, T10-11 #2 facet joints,medial branches radiofrequency ablation [id number], [id number] 10/22/2023 Spondylosis without myelopathy or radiculopathy, 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) the patient is reporting recurrence of pain in the thoracic spine for the last month the last thoracic medial branch radio frequency ablation she is reporting was done on 10/16/2022 offered the patient more than 10 month of 90% relief of pain improve mobility activity analgesia range of motion and ability to sit and sleep without thoracic pain continued physical therapy exercises for the last 12 months but the pain recurred again last 6 weeks she has positive bilateral thoracic facet loading test on exam negative straight leg raising test positive bilateral thoracic paravertebral area tenderness at T9/10/11/12, pain score is more than VAS of 6 in that area based on that we will offer the patient thoracic T9-10, T10-11 #2 facet joints,medial branches radiofrequency ablation 79550, [id number] 12/24/2023 Spondylosis without myelopathy or radiculopathy, 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) 11/26/2023 Spondylosis without myelopathy or radiculopathy, 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) 01/26/2024 Spondylosis without myelopathy or radiculopathy, 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) 02/09/2024 Spondylosis without myelopathy or radiculopathy, 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) 03/22/2024 Spondylosis without myelopathy or radiculopathy, 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) 03/22/2024 Sacroiliitis, not elsewhere classified (ICD-10 - M46.1) regarding the thoracic pain the patient is reporting good relief of pain in that area so there is no need for interventions at this point I recommended physical therapy exercises regarding the sacroiliac pain the patient is reporting 90% relief of pain in that area she can sit and sleep without pain so there is no need for injection for the sacroiliac area at this point I recommended physical therapy exercises 02/09/2024 Sacroiliitis, not elsewhere classified (ICD-10 - M46.1) regarding the thoracic pain the patient is reporting good relief of pain in that area so there is no need for interventions at this point I recommended physical therapy exercises regarding the sacroiliac pain the patient is reporting 90% relief of pain in that area she can sit and sleep without pain so there is no need for injection for the sacroiliac area at this point I recommended physical therapy exercises 01/26/2024 Sacroiliitis, not elsewhere classified (ICD-10 - M46.1) regarding the thoracic pain the patient is reporting good relief of pain in that area so there is no need for interventions at this point I recommended physical therapy exercises regarding the sacroiliac pain and interventional procedures for the sacroiliac area the patient was found to have positive bilateral Taj, shear, thigh thrust, compression, [place], Ho tests on exam pain score is more than VAS of 6 she has tried nonsteroidals, Tylenol, physical therapy exercises for the last 3 months with no relief based on that we will offer the patient a trial of bilateral sacroiliac joint injection to help relieve the pain in the sacroiliac area 12/24/2023 Sacroiliitis, not elsewhere classified (ICD-10 - M46.1) regarding the thoracic pain the patient is reporting good relief of pain in that area so there is no need for interventions at this point I recommended physical therapy exercises regarding the sacroiliac pain and interventional procedures for the sacroiliac area the patient was found to have positive bilateral Taj, shear, thigh thrust, compression, [place], Ho tests on exam pain score is more than VAS of 6 she has tried nonsteroidals, Tylenol, physical therapy exercises for the last 3 months with no relief based on that I am requesting authorization for a trial of bilateral sacroiliac joint injection to help relieve the pain 07740 bilateral 11/26/2023 Sacroiliitis, not elsewhere classified (ICD-10 - M46.1) regarding the thoracic pain the patient is reporting good relief of pain in that area so there is no need for interventions at this point I recommended physical therapy exercises regarding the sacroiliac pain and interventional procedures for the sacroiliac area the patient was found to have positive bilateral Taj, shear, thigh thrust, compression, [place], Ho tests on exam pain score is more than VAS of 6 she has tried nonsteroidals, Tylenol, physical therapy exercises for the last 3 months with no relief based on that I am requesting authorization for a trial of bilateral sacroiliac joint injection to help relieve the pain 46121 bilateral 01/26/2024 Foot drop, unspecified foot (ICD-10 - M21.379) the patient's MRI revealed lumbar spinal stenosis and foraminal narrowing, the patient is complaining of bilateral lower extremity pain she has functional difficulty standing and walking due to the pain the sacroiliac joint injection gave her 90% relief of pain in the buttock areas but she continues to suffer from bilateral lower extremity pain she has tried nonsteroidals, Tylenol, physical therapy exercises with no relief the patient has positive bilateral straight leg raising test decree sensation in the bilateral L4-5 distribution DTRs are 0 pain score is more than VAS of 6 based on that I am requesting authorization for a trial of bilateral lumbar L4 and bilateral L5 transforaminal epidural steroid injection to help relieve the pain 82992, 99594 bilateral 12/24/2023 Foot drop, unspecified foot (ICD-10 - M21.379) 02/09/2024 Foot drop, unspecified foot (ICD-10 - M21.379) the patient's MRI revealed lumbar spinal stenosis and foraminal narrowing, the patient is complaining of bilateral lower extremity pain she has functional difficulty standing and walking due to the pain the sacroiliac joint injection gave her 90% relief of pain in the buttock areas but she continues to suffer from bilateral lower extremity pain she has tried nonsteroidals, Tylenol, physical therapy exercises with no relief the patient has positive bilateral straight leg raising test decree sensation in the bilateral L4-5 distribution DTRs are 0 pain score is more than VAS of 6 based on that I am requesting authorization for a trial of bilateral lumbar L4 and bilateral L5 transforaminal epidural steroid injection to help relieve the pain 61226, 09721 bilateral 03/22/2024 Foot drop, unspecified foot (ICD-10 - M21.379) 03/22/2024 Radiculopathy, lumbar region (ICD-10 - M54.16) 02/09/2024 Radiculopathy, lumbar region (ICD-10 - M54.16) 01/26/2024 Radiculopathy, lumbar region (ICD-10 - M54.16) 04/30/2023 Other Regarding medication management, I reviewed the patient's prescription monitoring program it was appropriate, we stopped belbuca and started the patient on Butrans patch, I we will also change the patient's lidocaine patches to Zt lido hopefully it helps her betterRegarding physical therapy, continue physical therapy exercises Regarding the thoracic pain the patient is reporting good relief of pain in that area so there is no need for interventions for that area at this point I recommended physical therapy exercises The patient has seen the spine surgeon who did not recommend treatments for her at this point Regarding interventional procedures, I reviewed the patient's thoracic MRI that revealed T5 hemangioma , The patient has tried nonsteroidals, Tylenol, physical therapy exercises with no relief for the thoracic pain for the last 3 months, she has functional difficulty sitting, sleeping, cooking, cleaning due to the pain pain score is more than VAS of 6 based on that I am requesting authorization for thoracic epidural steroid injection to help relieve the pain 80459 Plan Of Treatment Pending Test Test Name Order Date COCAINE QUANTITATIVE 06/05/2022 COCAINE QUANTITATIVE 03/23/2024 OXYCODONE QUANTITATIVE 03/23/2024 OXYCODONE QUANTITATIVE 02/10/2024 OXYCODONE QUANTITATIVE 06/05/2022 BARBITURATES QUANTITATIVE 02/10/2024 BARBITURATES QUANTITATIVE 06/05/2022 BARBITURATES QUANTITATIVE 03/23/2024 METHADONE QUANTITATIVE 06/05/2022 METHADONE QUANTITATIVE 03/23/2024 MDMA (ECSTASY) QUANTITATIVE 03/23/2024 MDMA (ECSTASY) QUANTITATIVE 06/05/2022 6-ACETYLMORPHINE QUANTITATIVE 03/23/2024 TRAMADOL QUANTITATIVE 03/23/2024 TRAMADOL QUANTITATIVE 06/05/2022 FENTANYL QUANTITATIVE 06/05/2022 FENTANYL QUANTITATIVE 03/23/2024 BUPRENORPHINE QUANTITATIVE 03/23/2024 BUPRENORPHINE QUANTITATIVE 06/05/2022 BUPRENORPHINE QUANTITATIVE 02/10/2024 BENZODIAZEPINE QUANTITATIVE 02/10/2024 BENZODIAZEPINE QUANTITATIVE 06/05/2022 BENZODIAZEPINE QUANTITATIVE 03/23/2024 OPIATES QUANTITATIVE 02/10/2024 OPIATES QUANTITATIVE 03/23/2024 OPIATES QUANTITATIVE 06/05/2022 MUSCLE RELAXANT, QUANTITATIVE 02/10/2024 MUSCLE RELAXANT, QUANTITATIVE 06/05/2022 MUSCLE RELAXANT, QUANTITATIVE 03/23/2024 Amphetamine 03/23/2024 Amphetamine 06/05/2022 CREATININE 02/10/2024 CREATININE 03/23/2024 LAB REPORT 03/23/2024 LAB REPORT 02/10/2024 LAB REPORT 06/05/2022 Next Appt Details Provider Name:MARYELLEN BYERS, 05/03/2024 03:00:00 PM, [address] [place], [address], Insurance Providers Payer Name Payer Address Payer Phone Subscriber Number Group Number Insured Name Patient Relationship to Insured Coverage Start Date Coverage End Date [employer] [place]- [place] [address] [place] [phone] [id number] Self - patient is the insured Medical (General) History Medical History History ICD Code asthma copd hypertension high cholesterol disc disease DDD joint pain arthritis seizure disorder Surgical History Surgery Date(Month/Year) right knee replacement Hospitalization History Reason Date(Month/Year) Urgentcare for Back Pain 11/2023
--- OUTSIDE RECORDS SUMMARY | 2024-03-29 09:27 | XMS_ITS | Encounter Summary ---
Author Organization [facility] Address [address] [place] [address] Phone Care Team Providers Care Completion Manager Name Role Phone Shantell Romero DO Primary Care Provider [phone] Reason for Visit * Reason Comments Consult Encounter Details Date Type Department Care Team (Late st Contact Info) Description 03/02/2024 4:00 PM EST Office Visit [facility] [address], [place], [place] [id number] Fam Guillermo MD [address] [facility], [address] [place] [address] Opioid-induced constipation (Primary Dx) Social History Tobacco Use Types Packs/Day Years Used Date Smoking Tobacco: Never Smokeless Tobacco: Never Tobacco Cessation:Counseling Given: Not Answered Alcohol Use Standard Drinks/Week Comments Yes 1 (1 standard drink = 0.6 oz pur e alcohol) rare Sex and Gender Information Value Date Recorded Sex Assigned at Not on file Gender Identity Not on file Sexual Orientation Not on file documented as of this encounter Last Filed Vital Signs Vital Sign Reading Time Taken Comments Blood Pressure 108/60 03/02/2024 4:05 PM EST Pulse 72 03/02/2024 4:05 PM EST Temperature 36.4 ??C (97.6 ??F) 03/02/2024 4:05 PM ES T Respiratory Rate 14 03/02/2024 4:05 PM EST Oxygen Saturation 94% 03/02/2024 4:05 PM EST Inhaled Oxygen Concentration - - Weight 68.9 kg (152 lb) 03/02/2024 4:05 PM EST Height 147.3 cm (4' 10 ) 03/02/2024 4:05 PM EST Body Mass Index 31.77 03/02/2024 4:05 PM EST documented in this encounter Progress Notes * Fam Guillermo MD - 03/02/2024 4:00 PM EST Gastroenterology Office Visit Visit type: New patient PCP: Shantell Romero DO Chief Complaint: Constipation History of Present Illness 73-year-old female with a history of chronic GERD, hiatal hernia status post Pam fundoplication 2019, nesidioblastosis, chronic back pain referred here for constipation. Reports she has been on opioids for back pain for last few months and over the last 4-6 weeks she has been having worsening constipation to the point that she will not have a bowel movement for a week. She has tried enemas, magnesium citrate, milk of magnesia, other stool softeners without much benefit. Three she was started on Linzess 145 mcg once daily and last week she increased the dose to 290mcg due to not much benefit. Denies melena, hematochezia, unintentional weight loss. No family history of colon cancer. Had a colonoscopy in 2019 which was reportedly normal. She is already following low carb low residue diet. Prior Endoscopies: Colonoscopy 2019: Reportedly normal per patient Prior Imaging: No recent abdominal imaging available to review. Past Medical History: Diagnosis Date Arthritis Asthma Bulging of thoracic/lumbar/sacral intervertebral disc 06/2021 COPD (chronic obstructive pulmonary disease) (CMS/HCC) Endometriosis Hemangioma 5 x along thoracic spine History of transfusion hemorrhage Hypercholesterolemia Hypertension Hypoglycemia 08/2022 seizure - unknown etiology - endocrinology - Dr. 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 Osteoporosis 11/12/2023 -2.6 Renal disorder left Seizures (CMS/HCC) epilepsy Unicornate uterus Past Surgical History: Procedure Laterality Date SECTION x2 EXPLORATORY LAPAROTOMY in mid 40s - rudimentary left uterine horn removed EXPLORATORY LAPAROTOMY ?ovarian versus ovarian cyst removed - benign - unsure of what side HERNIA REPAIR 2019 hiatal hernia - sallie fundal plication JOINT REPLACEMENT Right 2010 knee replacement SKIN BIOPSY Right 02/25/2022 Procedure: EXCISION RIGHT ALILLA MASS ( MINOR PROCEDURE ); Surgeon: Jeremy Asif MD; Location: [facility] OR; Service: General Current Outpatient Medications: acarbose (PRECOSE) 25 MG tablet, Take 2 tablets (50 mg total) by mouth 3 (three) times a day with meals, Disp: , Rfl: acetaminophen (TYLENOL) 650 MG CR tablet, Take 1 tablet (650 mg total) by mouth every 8 (eight) hours as needed for mild pain (1-3), Disp: , Rfl: BUPRENORPHINE HCL SC, Inject 5 mg under the skin daily, Disp: , Rfl: cetirizine (ZyrTEC) 10 MG tablet, Take 1 tablet (10 mg total) by mouth daily, Disp: , Rfl: clobetasol (TEMOVATE) 0.05 % ointment, Apply 1 application topically nightly for 14 days, THEN 1 application 2 (two) times a week. Apply to affected area., Disp: 60 g, Rfl: 4 Continuous Glucose Sensor (Dexcom G7 Sensor) MIS, APPLY 1 SENSOR EVERY 10 DAYS., Disp: , Rfl: HYDROcodone Bit-homatrop MBr (HYCODAN) 5-1.5 MG/5ML SOLN, Take by mouth every 4 (four) hours as needed, Disp: , Rfl: HYDROcodone-acetaminophen (NORCO) 5-325 MG per tablet, Take 1 tablet by mouth, Disp: , Rfl: ipratropium-albuterol (DUO-NEB) 0.5-2.5 (3) MG/3ML nebulizer, Inhale 3 mL by nebulization route., Disp: , Rfl: levETIRAcetam (KEPPRA) 1000 MG tablet, TAKE 1 TABLET BY MOUTH TWICE A DAY, Disp: , Rfl: losartan (COZAAR) 100 MG tablet, Take 0.5 tablets (50 mg total) by mouth daily, Disp: , Rfl: meloxicam (MOBIC) 15 MG tablet, TAKE ONE TABLET BY MOUTH EVERY DAY, Disp: , Rfl: methocarbamol (ROBAXIN) 500 MG tablet, Take 1 tablet (500 mg total) by mouth 4 (four) times a day, Disp: , Rfl: montelukast (SINGULAIR) 10 MG tablet, TAKE ONE TABLET BY MOUTH EVERY DAY, Disp: , Rfl: morphine (AVINza) 30 MG 24 hr capsule, Take 1 capsule (30 mg total) by mouth daily Max Daily Amount: 30 mg, Disp: , Rfl: Multiple Vitamin (multivitamin) tablet, Take 1 tablet by mouth daily, Disp: , Rfl: pravastatin (PRAVACHOL) 20 MG tablet, Take 1 tablet (20 mg total) by mouth daily, Disp: , Rfl: pregabalin (LYRICA) 25 MG capsule, Take 4 capsules (100 mg total) by mouth 2 (two) times a day 200mg twice a day, Disp: , Rfl: roflumilast (DALIRESP) 500 MCG, TAKE 1 TABLET BY MOUTH EVERY DAY, Disp: , Rfl: Vitamin D3 (VITAMIN D3) 2000 UNITS capsule, Take 1 tablet/capsule (2,000 Units total) by mouth daily, Disp: , Rfl: cyclobenzaprine (FLEXERIL) 5 MG tablet, TAKE 1-2 TABLETS BY ORAL ROUTE ONCE DAILY AT BEDTIME NEEDED, Disp: , Rfl: Naloxegol Oxalate (Movantik) 12.5 MG TABS, Take 12.5 mg by mouth daily, Disp: 30 tablet, Rfl: 0 Allergies Allergen Reactions Latex Skin breakdown/swelling Penicillins Rash, anaphylaxis Social History Tobacco Use Smoking status: Never Smokeless tobacco: Never Substance Use Topics Alcohol use: Yes Alcohol/week: 1.0 standard drink of alcohol Types: 1 Glasses of wine per week Comment: rare Drug use: Never Family History Problem Relation Age of Onset No Known Problems Mother No Known Problems Father No Known Problems Sister No Known Problems Daughter No Known Problems Maternal Grandmother No Known Problems Maternal Grandfather No Known Problems Paternal Grandmother No Known Problems Paternal Grandfather No Known Problems Other BRCA 1/2 Neg Hx Breast cancer Neg Hx Colon cancer Neg Hx Endometrial cancer Neg Hx Ovarian cancer Neg Hx Review of Systems A 14 system review of systems was performed and is negative except as stated in HPI. Physical Exam Vitals: BP 108/60 (BP Location: Right arm, Patient Position: Sitting) Pulse 72 Temp (!) 97.6 ??F (36.4 ??C) (Temporal) Resp 14 Ht 4' 10 (1.473 m) Wt 68.9 kg (152 lb) LMP (LMP Unknown) SpO2 94% BMI 31.77 kg/m?? General: NAD HEENT: NCAT, no scleral icterus Lungs: CTAB, no wheezing CVS: RRR, S1-S2 GI: +BS, non tender and non distended abdomen MSK: No knee or back pain Skin: no jaundice, no rashes on extremities, Neuro: Alert and oriented to name and place. Following commands. Psych: normal mood, no agitation Data Review Labs: Lab Results Component Value Date WBC 9.31 11/29/2023 HGB 13.9 11/29/2023 HCT 41.5 11/29/2023 PLT 235 11/29/2023 Lab Results Component Value Date NA 142 11/29/2023 K 4.2 11/29/2023 CL 106 11/29/2023 CO2 24.7 11/29/2023 BUN 28.0 (H) 11/29/2023 CREATININE 0.74 11/29/2023 GLUCOSE 99 11/29/2023 GLUCOSE 87 11/29/2023 Lab Results Component Value Date CALCIUM 9.0 11/29/2023 Lab Results Component Value Date AST 24 11/29/2023 ALT 35 (H) 11/29/2023 ALKPHOS 61 11/29/2023 BILITOT 0.3 11/29/2023 Assessment: 73-year-old female with a history of chronic GERD, hiatal hernia status post Pam fundoplication 2018, nesidioblastosis, chronic back pain, on opioid therapy referred here for constipation. 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 We will start her on Movantik 12.5 mg once daily. If no benefit in one week, we will increase the dose to 25 mg once daily. Continue Linzess 290 mcg once daily for now. Fam Guillermo MD Gastroenterology and Hepatology [facility] documented in this encounter Plan of Treatment Upcoming Encounters Date Type Department Care Team (Late st Contact Info) Description 04/06/2024 1:00 PM EST Office Visit [facility] [address] [place] [address] Rd, [place] [address] Fam Guillermo MD [address] [place] [address], [address] [place] [address] 04/27/2024 3:15 PM EST Office Visit [facility] [address] [place] [address] Mitzi Whelan MD [employer] [address] [place] [address] 12/05/2024 3:40 PM EDT Appointment [facility] [address] [place] [address] documented as of this encounter Visit Diagnoses Diagnosis Opioid-induced constipation- Primary documented in this encounter Care Teams Completion Manager Relationship Specialty Start Date End Date Shantell Romero DO [address] [facility] [place] [id number] PCP - General Family Medicine 07/25/21 documented as of this encounter
--- OUTSIDE RECORDS SUMMARY | 2024-03-29 09:27 | XMS_ITS | Referral Summary ---
Author Organization [facility] Address [address] [place] [address] Care Team Providers Care Dragline Operator Name Role Phone Shantell Romero Primary Care Provider [phone] Encounters Date Type Department Care Team Description 02/18/2024 Transcribe Orders [facility] [address] [place] [address] Kalpana Quezada PA Pain in joint, multiple sites (Primary Dx) from Last 3 Months Allergies Active Allergy Reactions Criticality Noted Date [...] back pain with bilateral sciat ica 09/02/2021 Social History Tobacco Use Types Packs/Day Years [...] Info) Description 08/18/2024 3:40 PM EDT Follow-Up [facility] [address] [place] [id number] Assembly Line Driver: Sandy Del Cid MD [address] [place] [phone] Insurance [facility] Care Teams Dragline Operator Relationship Specialty Start Date End Date Shantell Romero [address] [place] [address] PCP - General Family Medicine 08/26/21
--- OUTSIDE RECORDS SUMMARY | 2024-03-29 09:27 | XMS_ITS | Clinical Summary ---
Author Organization [facility] Address [address] [place] [address] [address] Care Team Providers Care Cupola Tapper Name Role Phone Poc, Non Atrius Pcp Or Primary Care Provider Dulce vailable Allergies Active Allergy Reactions Criticality Noted Date Comments Latex 09/19/2013 Penicillin G Benzathine & Proc High 09/19 Medications fluticasone-salme terol (ADVAIR HFA) 115-21 mcg/actuation Inhalation HFA Aerosol Inhaler Use Inhale 2 puffs, by mouth BID Active INHALER, ASSIST DEVICES (AEROCHAMBER MISC) by Miscellaneous_ route Use with Advair HFA Active albuterol (VENTOLIN,PROVENT IL) 2.5 mg /3 mL (0.083 %) Inhalation Solution for Nebulization Use in nebulizer Use 1 unit dose Q 4-6 hours as needed for wheezing. Active benzonatate (TESSALON) 200 mg Oral capsule Take Take 1 capsule TID as needed. Active Epinephrine 0.3 mg/0.3 mL Intramuscular Combo Pack Inject intramuscularly Inject 0.3ML once PRN Active fluticasone 50 mcg/actuation Nasal [place] Light, Suspension Apply to each nostril Use 2 sprays in each nostril once daily. Active hydrochlorothiazi de 25 mg Oral tablet Take Take 1 tab orally once a day. Active lamoTRIgine 200 mg Oral tablet Take Take 2 tablets daily. Active losartan 100 mg Oral tablet Take Take 1 tablet once daily. Active omeprazole 40 mg Oral capsule,delayed release(DR/EC) Take Take 1 cap daily. Active albuterol (PROAIR HFA) 90 mcg/actuation Inhalation HFA Aerosol Inhaler Use Take 2 puffs inhaled 4 times a day. Active RANITIDINE HCL ORAL Take Take 1 tab orally daily. Active simvastatin 10 mg Oral tablet Take Take 1 tab orally once a day at bedtime. Active zafirlukast (ACCOLATE) 20 mg Oral tablet Take Take 1 tab orally 2 times a day for asthma. Active Cetirizine (ZYRTEC) 10 mg Oral capsule Take Take 1 tab daily for asthma. Active omalizumab (XOLAIR) 150 mg Subcutaneous Recon Soln Administer 150 mg subcutaneously every 28 days 300 mg 4 09/20/19 14 Active omalizumab (XOLAIR) 150 mg Subcutaneous Recon Soln Administer 300 mg subcutaneously every 28 days 2 vials SQ every 4 weeks. Patient was on this medication before restarting see IgE of 154 and allergic to cat and dog 300 mg 12 10/18/19 14 Active Active Problems Problem Noted Date Diagnosed Date Allergic rhinitis due to animal (cat) (dog) hair and dander 10/17/2013 Allergic asthma 10/17/2013 Asthma, moderate 09/19/2013 Overview (10/17/2013): ON ICS LABA LTRA CLOVER still symptomatic Will order Xolair Medical History Medical History Date Comments HTN (hypertension) GERD (gastroesophageal reflux disease) Obesity Asthma Allergic rhinitis High cholesterol Social History Tobacco Use Types Packs/Day Years Used Date Smoking Tobacco: Passive Smo ke Exposure - Never Smoker Smokeless Tobacco: Never Alcohol Use Standard Drinks/Week Comments No 0 (1 standard drink = 0.6 oz pur e alcohol) Comments Unknown Sex and Gender Information Value Date Recorded Sex Assigned at Not on file Legal Sex Female 3:00 PM EDT Gender Identity Not on file Sexual Orientation Not on file Obstetrics History Last Filed Vital Signs Vital Sign Reading [...] Health Maintenance Due Date Last Done Comments OFFICE VISIT 1952 HEP B INITIAL SCREENING 1970 LIPID SCREENING 1972 DTAP/TDAP/TD VACCINE (1 - Tdap) 1973 PAP: UPDATE W EDIT MODIFIERS 1973 * GLUCOSE OR A1C SCREENING - Q3YR 07/06/1987 HEP C SCREENING 1988 BONE DENSITY 1992 MAMMOGRAPHY: 1 YR 1992 COLORECTAL SCREENING: UPDATE W EDIT MODIFIERS 1997 PERIODIC HEALTH REVIEW 2002 ZOSTER VACCINE (1 of 2) 2002 COMPLETE EYE EXAM (65+YRS) 2017 PNEUMOCOCCAL VACCINE(S) 50+ (1 of 1 - PCV) 2017 COVID-19 Vaccine (2023-2 5 season) 2023 FLU SEASONAL (#1) 10/31/2023 HAEMOPHILUS INFLUENZA VACCINE Aged Out No longer eligible based on patient's age to complete this topic HEPATITIS A VACCINE Aged Out No longe r eligible based on patient's age to complete this topic HEPATITIS B VACCINE Aged Out No longe r eligible based on patient's age to complete this topic POLIO VACCINE Aged Out No longer elig ible based on patient's age to complete this topic RSV Vaccine //toddler Aged Out No longer eligible based on patient's age to complete this topic Care Teams Cupola Tapper Relationship Specialty Start Date End Date Poc, Non Atrius Pcp Or PCP - General 08/18/13
--- OUTSIDE RECORDS SUMMARY | 2024-03-29 09:27 | XMS_ITS | Encounter Summary ---
Author Organization [facility] Address [address] [place] [address] Phone Care Team Providers Care Molding Line Operator Name Role Phone Nick Shantell Primary Care Provider [phone] Encounter Details Date Type Department Care Team (Late st Contact Info) Description 03/16/2024 3:00 PM EST Office Visit [facility] [address] [facility], [place] [address] Fam Guillermo MD [address] [facility], [address] [place] [address] Opioid-induced constipation (Primary Dx) Social [...] Sign Reading Time Taken Comments Blood Pressure 102/64 03/16/2024 3:00 PM EST Pulse 74 03/16/2024 3:00 PM EST Temperature - - Respiratory Rate - - Oxygen Saturation 98% 03/16/2024 3:00 PM EST Inhaled Oxygen Concentration - - Weight 70.9 kg (156 lb 3.2 oz) 03/16/2024 3:00 P M EST Height 147.3 cm (4' 10 ) 03/16/2024 3:00 PM EST Body Mass Index 32.65 03/16/2024 3:00 PM EST documented in this encounter Progress Notes * Fam Guillermo MD - 03/16/2024 3:00 PM EST Gastroenterology Office Visit Visit type: The patient PCP: Shantell Romero DO Chief Complaint: [...] No recent abdominal imaging available to review. Follow-up 03/16/2024: Not much relief with Movantik 25 mg once daily in addition to Linzess 290 mcgonce daily. Because of doubling of the dose as we had discussed previously she is now out of both of these medications as well. Past Medical History: Diagnosis Date Arthritis Asthma [...] PROCEDURE ); Surgeon: Jeremy Asif MD; Location: [facility]; Service: General Current Outpatient Medications: acarbose [...] SENSOR EVERY 10 DAYS., Disp: , Rfl: cyclobenzaprine (FLEXERIL) 5 MG tablet, TAKE 1-2 TABLETS BY ORAL ROUTE ONCE DAILY AT BEDTIME NEEDED, Disp: , Rfl: HYDROcodone Bit-homatrop MBr (HYCODAN) [...] 1 capsule (30 mg total) by mouth daily, Disp: , Rfl: Multiple Vitamin (multivitamin) tablet, [...] total) by mouth daily, Disp: , Rfl: linaclotide (Linzess) 290 MCG, Take 1 capsule (0.29 mg total) by mouth daily for 90 doses, Disp: 90capsule, Rfl: 0 naloxegol oxalate (Movantik) 25 MG TABS, Take 1 tablet (25 mg total) by mouth daily for 90 days, Disp: 90 tablet, Rfl: 0 Allergies Allergen Reactions Latex [...] stated in HPI. Physical Exam Vitals: BP 102/64 (BP Location: Left arm, Patient Position: Sitting) Pulse 74 Ht 4' 10 (1.473 m) Wt 70.9 kg (156 lb 3.2 oz) LMP (LMP Unknown) SpO2 98% BMI 32.65 kg/m?? General: NAD HEENT: NCAT, no scleral [...] post Pam fundoplication 2019, nesidioblastosis, chronic back pain, on opioid therapy referred here for constipation. 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 Not much relief with Movantik 25 mg once daily along with Linzess 290 mcg once daily. Because of doubling of the dose she is now out of these medications and I will send in a refill. Colonoscopy was also discussed however she wishes to hold it off as she just had it in 2019. Very low residue diet discussed. We will do a trial for 1-2 weeks. If no benefit, we will try Relistor and possibly discuss colonoscopy again to rule out other causes. Fam Guillermo MD Gastroenterology and Hepatology [facility] documented in this encounter Plan of Treatment Upcoming Encounters Date Type Department Care Team (Late st Contact Info) Description 04/06/2024 1:00 PM EST Office Visit [facility] [address], [place] [address] Fam Guillermo MD [address] [facility], [address] [place] [address] 04/27/2024 3:15 PM EST Office Visit [facility] [address] [place] [address] Mitzi Whelan MD [employer] [address] [place] [address] 12/05/2024 3:40 PM EDT Appointment [facility] [address] [place] [address] documented as of this encounter Visit Diagnoses Diagnosis Opioid-induced constipation- Primary documented in this encounter Care Teams Molding Line Operator Relationship Specialty Start Date End Date Shantell Romero DO [address] [facility] [place] [address] PCP - General Family Medicine 07/25/21 documented as of this encounter
--- OUTSIDE RECORDS SUMMARY | 2024-03-29 09:27 | XMS_ITS | Clinical Summary ---
Author Organization [facility] Address [address] [place] [address] Care Team Providers Care Manifold Builder Name Role Phone Unavailable Primary Care Provider Unavailabl e Social History Tobacco Use Types Packs/Day Years Used Date Smoking Tobacco: Never Assessed Comments Unknown Sex and Gender Information Value Date Recorded Sex Assigned at Not on file Legal Sex Female 8:05 AM EDT Gender Identity Not on file Sexual Orientation Not on file Plan of Treatment Not on file
--- OUTSIDE RECORDS SUMMARY | 2024-03-29 09:27 | XMS_ITS | Encounter Summary ---
Author Organization [facility] Address [address] [place] [address] Care Team Providers Care Mileage Clerk Name Role Phone Nick Shantell Maria G Primary Care Provider [phone] Encounter Details Date Type Department Care Team (Late st Contact Info) Description 01/13/2022 myChart Message [facility] [address] [place], [place] [id number] Yvette Stein MD [address] [place] [address] EMG report-copied below Social History Tobacco Use Types Packs/Day Years [...] Orientation Straight 09/01/2021 9: 06 PM EDT documented as of this encounter Plan of Treatment Upcoming Encounters Date Type Department Care Team (Late st Contact Info) Description 08/18/2024 3:40 PM EDT Follow-Up [facility] [address] [place], [place] [id number] Gasoline Power Shovel Operator: Sandy Del Cid MD [address] [place] [address] documented as of this encounter Visit Diagnoses Not on filedocumented in this encounter Care Teams Mileage Clerk Relationship Specialty Start Date End Date Shantell Romero [address] [place] [id number] PCP - General Family Medicine 08/26/21 documented as of this encounter
--- OUTSIDE RECORDS SUMMARY | 2024-03-29 09:28 | XMS_ITS | Clinical Summary ---
Author Organization [facility] Address [address] [place] [phone] Phone Care Team Providers Care Spoke Maker Name Role Phone Shantell Romero DO Primary Care Provider [phone] Allergies Active Allergy Reactions Criticality Noted Date Comments Latex 01/10/2020 Skin breakdown/swelling Penicillins 01/10/2020 Rash, anaphylaxis Medications Medication Sig Dispensed Refills Start Date End Date Status losartan (COZAAR) 100 MG tablet Take 0.5 tablets (50 mg total) by mouth daily Active pravastatin (PRAVACHOL) 20 MG tablet Take 1 tablet (20 mg total) by mouth daily Active cetirizine (ZyrTEC) 10 MG tablet Take 1 tablet (10 mg total) by mouth daily Active levETIRAcetam (KEPPRA) 1000 MG tablet TAKE 1 TABLET BY MOUTH TWICE A DAY 3 Active ipratropium-albu terol (DUO-NEB) 0.5-2.5 (3) MG/3ML nebulizer Inhale 3 mL by nebulization route. 8 Active roflumilast (DALIRESP) 500 MCG TAKE 1 TABLET BY MOUTH EVERY DAY 2 Active acarbose (PRECOSE) 25 MG tablet Take 2 tablets (50 mg total) by mouth 3 (three) times a day with meals Active pregabalin (LYRICA) 25 MG capsule Take 4 capsules (100 mg total) by mouth 2 (two) times a day 200mg twice a day Active methocarbamol (ROBAXIN) 500 MG tablet Take 1 tablet (500 mg total) by mouth 4 (four) times a day Active Vitamin D3 (VITAMIN D3) 2000 UNITS capsule Take 1 tablet/capsule (2,000 Units total) by mouth daily Active acetaminophen (TYLENOL) 650 MG CR tablet Take 1 tablet (650 mg total) by mouth every 8 (eight) hours as needed for mild pain (1-3) Active BUPRENORPHINE HCL SC Inject 5 mg under the skin daily Active clobetasol (TEMOVATE) 0.05 % ointment Apply 1 application topically nightly for 14 days, THEN 1 application 2 (two) times a week. Apply to affected area. 60 g 4 4 05/13/19 25 Active Continuous Glucose Sensor (Dexcom G7 Sensor) [facility] [place] SENSOR EVERY 10 DAYS. 4 Active cyclobenzaprine (FLEXERIL) 5 MG tablet TAKE 1-2 TABLETS BY ORAL ROUTE ONCE DAILY AT BEDTIME NEEDED Active HYDROcodone-acet aminophen (NORCO) 5-325 MG per tablet Take 1 tablet by mouth 4 Active meloxicam (MOBIC) 15 MG tablet TAKE ONE TABLET BY MOUTH EVERY DAY Active montelukast (SINGULAIR) 10 MG tablet TAKE ONE TABLET BY MOUTH EVERY DAY Active Multiple Vitamin (multivitamin) tablet Take 1 tablet by mouth daily Active morphine (AVINza) 30 MG 24 hr capsule Take 1 capsule (30 mg total) by mouth daily Active HYDROcodone Bit-homatrop MBr (HYCODAN) 5-1.5 MG/5ML SOLN Take by mouth every 4 (four) hours as needed Active naloxegol oxalate (Movantik) 25 MG TABSIndications: Opioid-induced constipation Take 1 tablet (25 mg total) by mouth daily for 90 days 90 tablet 5 06/15/19 25 Active linaCLOtide (Linzess) 145 MCGIndications:O pioid-induced constipation Take 1 capsule (145 mcg total) by mouth daily 90 capsule 5 Active Fluticasone-Umec lidin-Vilant (TRELEGY ELLIPTA IN) Inhale 1 puff daily 03/02/19 25 Discontinued(Er ror) diclofenac (CATAFLAM) 50 MG tablet Take 1 tablet (50 mg total) by mouth 3 (three) times a day 03/02/19 25 Discontinued(Er ror) diclofenac (VOLTAREN) 75 MG EC tablet TAKE ONE TABLET BY MOUTH TWICE A DAY NEEDED 3 03/02/19 25 Discontinued(Er ror) magnesium (MAGTAB) 84 MG (7MEQ) TBCR Take 1 tablet (84 mg total) by mouth daily 03/02/19 25 Discontinued(Er ror) Naloxegol Oxalate (Movantik) 12.5 MG TABSIndications: Opioid-induced constipation Take 12.5 mg by mouth daily 30 tablet 5 03/16/19 25 Discontinued linaclotide (Linzess) 290 MCGIndications:O pioid-induced constipation Take 1 capsule (0.29 mg total) by mouth daily for 90 doses 90 capsule 5 03/28/19 25 Discontinued Active Problems Problem Noted Date Diagnosed Date Hypoglycemia 06/24/2023 Epilepsy 12/10/2021 Acute midline low back pain with bilateral sciat ica 09/02/2021 Rupture of ulnar collateral ligament of thumb Osteoarthritis of first carpometacarpal joint of left hand 07/25/2021 Altered level of consciousness 03/20/2014 Overview (03/02/2024): Transient Alteration Of Awareness Allergy to cats 01/05/2014 Overview (03/02/2024): cat dander;PHS Allergy Remediation Allergic rhinitis due to animal (cat) (dog) hair and dander 10/17/2013 Asthma, moderate 09/19/2013 Overview (03/02/2024): ON ICS LABA LTRA CLOVER still symptomatic Will order Xolair Hypertension 09/08/2013 Overview (03/02/2024): Hypertension Hyperlipidemia 09/08/2013 Overview (03/02/2024): Hyperlipidaemia Obesity 09/08/2013 Overview (03/02/2024): Obesity Morbid obesity 07/04/2013 Overview (03/02/2024): Morbid Obesity Depression 02/08/2013 Overview (03/02/2024): Depression Extrinsic asthma with exacerbation 01/13/2013 Overview (03/02/2024): Asthma With Acute Exacerbation Acute sinusitis 06/27/2012 Overview (03/02/2024): Acute Sinusitis Visual disturbance 05/04/2012 Overview (03/02/2024): Visual Disturbances Hoarseness 03/28/2012 Overview (03/02/2024): Hoarseness History of total knee replacement 12/07/2011 Overview (03/02/2024): Reported Hx Of Knee Replacement Knee pain 12/07/2011 Overview (03/02/2024): Joint Pain, Localized In The Knee Symptom of wheezing 10/20/2011 Overview (03/02/2024): Wheezing (Symptom) Chronic rhinitis 10/05/2011 Overview (03/02/2024): Chronic Rhinitis: CHRONIC RHINITIS - 472.0 Acute serous otitis media 07/22/2011 Overview (03/02/2024): Acute Serous Otitis Media Mixed incontinence 04/28/2011 Overview (03/02/2024): Urge And Stress Incontinence Anemia 04/20/2011 Overview (03/02/2024): Anemia Anemia due to blood loss 04/20/2011 Overview (03/02/2024): Anemia Secondary To Blood Loss Cough 04/20/2011 Overview (03/02/2024): Cough: COUGH - 786.2 Palpitations 04/20/2011 Overview (03/02/2024): Palpitations (Symptom) Urinary incontinence 04/20/2011 Overview (03/02/2024): Urinary Incontinence Osteoarthritis of carpometacarpal joint of thumb 12/19/2010 Overview (03/02/2024): Localized Primary Osteoarthritis Of The Carpometacarpal Joint Of The Left Thumb Diagnosis unknown 11/25/2010 Overview (03/02/2024): Text: Acute Bucket Handle Tear Of Medial Meniscus Acute pain 08/28/2010 Overview (03/02/2024): Acute Pain Bipolar affective disorder 07/29/2010 Overview (03/02/2024): Bipolar Disorder NOS: BIPOLAR DISORDER, UNSPECIFIED - 296.80 Osteoarthritis of knee 07/18/2010 Overview (03/02/2024): Localized Osteoarthritis Of The Knee Chronic pain disorder 07/14/2010 Overview (03/02/2024): Chronic Pain Syndrome Gastroesophageal reflux disease 07/14/2010 Overview (03/02/2024): Gastroesophageal reflux disease Iron deficiency anemia 06/25/2010 Overview (03/02/2024): Iron Deficiency Anemia Secondary To Chronic Blood Loss Enthesopathy of hip region 11/06/2003 Infective otitis externa 08/27/2003 Benign essential hypertension 06/11/2003 Disorder of lipid metabolism 06/11/2003 Osteoarthritis 06/11/2003 Overview (03/02/2024): knee. thumb Osteoarthritis; knee. thumb Acute stress disorder 09/03/2002 Allergic rhinitis 09/03/2002 Overview (03/02/2024): Allergic rhinitis Allergic asthma 09/03/2002 Overview (03/02/2024): Asthma Conjunctivitis 07/16/2002 Joint pain 12/14/2001 Encounters Date Type Department Care Team Description 03/16/2024 3:00 PM EST Office Visit [facility] [address] [place] [address] Rd, [place] [address] Fam Guillermo MD Opioid-induced constipation (Primary Dx) 03/02/2024 4:00 PM EST Office Visit [facility] [address], [place] [address] Fam Guillermo MD Opioid-induced constipation (Primary Dx) 01/04/2024 11:25 AM EST - 01/04/2024 11:59 PM EST Hospital Encounter [facility] [address] [place] [address] Jaylan Shah, DPM Discharge Disposition: Home or Self Care from Last 3 Months Immunizations Name Administration Dates Next Due Influenza High Dose Preserva tive Free IM 11/21/2017 Influenza LAIV (Nasal) 11/27/2013 Influenza TIV (IM) 11/25/2022 Influenza, Unspecified 11/29/2015,12/03/2014 Influenza,Injectable,quadrivalent,PF 12/04/2018 Influenza,MDCK,Quadrivalent, preservat jennifer free 12/03/2023 Moderna SARS-CoV-2 Vaccine 03/21/2020,03/08/2020 Pfizer Comirnaty SARS-CoV-2, mRNA, LNP-S, PF, tis-sucrose, 30mcg/0.3mL 01/15/2023 Pfizer SARS-CoV-2 Vaccine 12/05/2021,,10/31/2020,2020,02/19/2020 Pneumococcal Conjugate 13-Valent(Prevnar) 04/18/2020,12/31/2017,09/03/2015 Pneumococcal Polysaccharide-23(Pneumovax) 02/25/2010 Pneumococcal, Unspecified 01/29/2019 TD Preservative Free 11/11/2006 Td 11/11/2006 Tdap 09/21/2013 Zoster 08/24/2015 Family History Medical History Relation Name Comments No Known Problems Daughter No Known Problems Father No Known Problems Maternal Grandfather No Known Problems Maternal Grandmother No Known Problems Mother No Known Problems Other No Known Problems Paternal Grandfather No Known Problems Paternal Grandmother No Known Problems Sister BRCA 1/2 Neg Hx Breast cancer Neg Hx Colon cancer Neg Hx Endometrial cancer Neg Hx Ovarian cancer Neg Hx Relation Name Status Comments Daughter Father Maternal Grandfather Maternal Grandmother Mother Other Paternal Grandfather Paternal Grandmother Sister Social History Tobacco Use Types Packs/Day Years [...] Pulse 74 03/16/2024 3:00 PM EST Temperature 36.4 ??C (97.6 ??F) 03/02/2024 4:05 PM ES T Respiratory Rate 14 03/02/2024 4:05 PM EST Oxygen Saturation 98% 03/16/2024 3:00 PM EST Inhaled Oxygen Concentration - - Weight 70.9 kg (156 lb 3.2 oz) 03/16/2024 3:00 P M EST Height 147.3 cm (4' 10 ) 03/16/2024 3:00 PM EST Body Mass Index 32.65 03/16/2024 3:00 PM EST Plan of Treatment Upcoming Encounters Date Type Department Care Team (Late st Contact Info) Description 04/06/2024 1:00 PM EST Office Visit [facility] [address] [place] [phone] Fam Guillermo MD [address] [facility], [address] [place] [address] 04/27/2024 3:15 PM EST Office Visit [facility] [address] [place] [address] Mitzi Whelan MD PRODUCT/DEVICE TECHNOLOGIST [address] [place] [address] 12/05/2024 3:40 PM EDT Appointment [facility] [address] [place] [address] Health Maintenance Due Date Last Done Comments Medicare Annual Wellness (AWV) [address] Colonography 1997 FIT 1997 FOBT 1997 SIGMOIDOSCOPY 1997 FALL RISK SCREENING 2017 COVID 19 VACCINE ( season) 2023 01/15/2023, 12/05/2021, 09/25/2021, Additional history exists Pneumococcal Vaccine: 65+ years (3 of 3 - PPSV23 or PCV20) 04/18/2025 04/18/2020, 01/29/2019, 12/31/2017, Additional history exists Bone Density Scan [DEXA Scan] 11/08/2025 11/09/2023 MAMMOGRAM 11/28/2025 11/29/2023, 03/02, 03/27/2022, Additional history exists Cologuard [FIT-DNA] 07/03/2026 07/04/2023 Colorectal Cancer Screening 07/03/2026 Influenza Vaccine Completed 12/03/2023, , 12/04/2018, Additional history exists HIB VACCINES Aged Out No longer eligi ble based on patient's age to complete this topic HPV VACCINES Aged Out No longer eligi ble based on patient's age to complete this topic Hepatitis A Vaccines Aged Out No long er eligible based on patient's age to complete this topic Hepatitis B Vaccines Aged Out No long er eligible based on patient's age to complete this topic Procedures Procedure Name Priority Date/Time Associated Diagnosis Comments XR FOOT 3 VIEWS LEFT Routine 01/04/2024 11:59 AM EST Bilateral foot pain XR FOOT 3 VIEWS RIGHT Routine 01/04/2024 11:59 AM EST Bilateral foot pain XR ANKLE 3+ VIEWS LEFT Routine 11:59 AM EST Bilateral ankle joint pain XR ANKLE 3+ VIEWS RIGHT Routine 01/04/2024 11:59 AM EST Bilateral ankle joint pain MAMMO TOMOSYNTHESIS BREAST SCREEN BI Routine 11/29/2023 4:04 PM EDT Screening mammogram, encounter for XR DEXA BONE DENSITY Routine 11/09/2023 4:06 PM EDT Postmenopausal from Last 3 Months or Most Recently Relevant to Health Maintenance Results * X-ray Foot 3 Views Right (01/04/2024 11:59 AM EST) Anatomical Region Laterality Modality Foot Right Radiographic Lesly ging 01/04/2024 11:5 9 AM EST Impressions 01/04/2024 12:59 PM EST No etiology is identified to account for patient's symptoms. Electronically signed: 01/04/2024 12:59 PM Tal Alvarez Jr, M.D. Narrative 01/04/2024 12:59 PM EST XR FOOT 3 VIEWS RIGHT, XR ANKLE 3+ VIEWS RIGHT HISTORY: RIGHT FOOT PAIN TECHNIQUE: 3 weight-bearing views of the right foot were acquired. 3 views the right ankle were acquired. COMPARISON: 11/13/2019 FINDINGS: There is normal mineralization and alignment. No fracture or osseous lesion is identified. The joints are normal. The soft tissues are normal. Procedure Note Tal Alvarez MD - 01/04/2024 XR FOOT 3 VIEWS RIGHT, XR ANKLE 3+ VIEWS RIGHT HISTORY: RIGHT FOOT PAIN TECHNIQUE: 3 weight-bearing views of the right foot were acquired. 3 viewsthe right ankle were acquired. COMPARISON: 11/13/2019 FINDINGS: There is normal mineralization and alignment. No fracture or osseouslesion is identified. The joints are normal. The soft tissues arenormal. IMPRESSION No etiology is identified to account for patient's symptoms. Electronically signed: 01/04/2024 12:59 PM Tal Alvarez Jr, M.D. 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 Electronically signed: 01/04/2024 12:58 PM Tal Alvarez Jr, M.D. Narrative 01/04/2024 12:58 PM EST XR FOOT 3 VIEWS LEFT, XR ANKLE 3+ VIEWS LEFT HISTORY: LEFT FOOT PAIN TECHNIQUE: 3 weight-bearing views of the left foot were acquired. 3 views of left ankle were acquired. COMPARISON: There is no prior study available for comparison. FINDINGS: There is normal mineralization and alignment. No fracture or osseous lesion is identified. Prominent degenerative disease is noted involving the navicular and medial most cuneiform. The soft tissues are normal. Procedure Note Tal Alvarez MD - 01/04/2024 XR FOOT 3 VIEWS LEFT, XR ANKLE 3+ VIEWS LEFT HISTORY: LEFT FOOT PAIN TECHNIQUE: 3 weight-bearing views of the left foot were acquired. 3 viewsof left ankle were acquired. COMPARISON: There is no prior study available for comparison. FINDINGS: There is normal mineralization and alignment. No fracture or osseouslesion is identified. Prominent degenerative disease is noted involvingthe navicular and medial most cuneiform. The soft tissues are normal. 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 Electronically signed: 01/04/2024 12:58 PM Tal Alvarez Jr, M.D. Jaylan Shah DPM IMG DIAGNOSTIC IMAGI NG ORDERABLES * X-ray Ankle 3+ Views Right (01/04/2024 11:59 AM EST) Anatomical Region Laterality Modality Ankle Right Radiographic Lesly ging 01/04/2024 11:5 9 AM EST Impressions 01/04/2024 12:59 PM EST No etiology is identified to account for patient's symptoms. Electronically signed: 01/04/2024 12:59 PM Tal Alvarez Jr, M.D. Narrative 01/04/2024 12:59 PM EST XR FOOT 3 VIEWS RIGHT, XR ANKLE 3+ VIEWS RIGHT HISTORY: RIGHT FOOT PAIN TECHNIQUE: 3 weight-bearing views of the right foot were acquired. 3 views the right ankle were acquired. COMPARISON: 11/13/2019 FINDINGS: There is normal mineralization and alignment. No fracture or osseous lesion is identified. The joints are normal. The soft tissues are normal. Procedure Note Tal Alvarez MD - 01/04/2024 XR FOOT 3 VIEWS RIGHT, XR ANKLE 3+ VIEWS RIGHT HISTORY: RIGHT FOOT PAIN TECHNIQUE: 3 weight-bearing views of the right foot were acquired. 3 viewsthe right ankle were acquired. COMPARISON: 11/13/2019 FINDINGS: There is normal mineralization and alignment. No fracture or osseouslesion is identified. The joints are normal. The soft tissues arenormal. IMPRESSION No etiology is identified to account for patient's symptoms. Electronically signed: 01/04/2024 12:59 PM Tal Alvarez Jr, M.D. 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 Electronically signed: 01/04/2024 12:58 PM Tal Alvarez Jr, M.D. Narrative 01/04/2024 12:58 PM EST XR FOOT 3 VIEWS LEFT, XR ANKLE 3+ VIEWS LEFT HISTORY: LEFT FOOT PAIN TECHNIQUE: 3 weight-bearing views of the left foot were acquired. 3 views of left ankle were acquired. COMPARISON: There is no prior study available for comparison. FINDINGS: There is normal mineralization and alignment. No fracture or osseous lesion is identified. Prominent degenerative disease is noted involving the navicular and medial most cuneiform. The soft tissues are normal. Procedure Note Tal Alvarez MD - 01/04/2024 XR FOOT 3 VIEWS LEFT, XR ANKLE 3+ VIEWS LEFT HISTORY: LEFT FOOT PAIN TECHNIQUE: 3 weight-bearing views of the left foot were acquired. 3 viewsof left ankle were acquired. COMPARISON: There is no prior study available for comparison. FINDINGS: There is normal mineralization and alignment. No fracture or osseouslesion is identified. Prominent degenerative disease is noted involvingthe navicular and medial most cuneiform. The soft tissues are normal. 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 Electronically signed: 01/04/2024 12:58 PM Tal Alvarez Jr, M.D. Jaylan Shah DPM IMG DIAGNOSTIC IMAGI NG ORDERABLES * Mammo Tomosynthesis Breast Screening Bi (11/29/2023 4:04 PM EDT) Anatomical Region Laterality Modality Breast Bilateral Mammography 11/29/2023 4:04 PM EDT Impressions 11/29/2023 6:12 PM EDT No mammographic evidence of malignancy. Breast Density Category: B - Scattered areas of fibroglandular density BI-RADS: 1: Negative Follow Up Recommendation: Follow up Mamm in 1 year Side: Bilateral Those patients who are 40 years old or older will be entered into a reminder system with a target due date for their next mammogram. A reminder letter for the next mammogram will be sent to the patient. Electronically signed: 11/29/2023 6:12 PM Richard Fox M.D. Narrative 11/29/2023 6:12 PM EDT MAMMO TOMOSYNTHESIS BREAST SCREEN BI HISTORY: ??Screening mammogram. TECHNIQUE: ??In addition to being interpreted by a Board Certified Radiologist, this case was examined by a computer-aided detection program (CAD). Bilateral digital mammography with tomosynthesis was performed. COMPARISON: 03/27/2022, 03/13/2021, 11/08/2019 FINDINGS: There are scattered areas of fibroglandular density. There are no suspicious masses, suspicious calcifications or secondary signs of malignancy within either breast. Procedure Note Richard Fox MD - 11/29/2023 MAMMO TOMOSYNTHESIS BREAST SCREEN BI HISTORY: Screening mammogram. TECHNIQUE: In addition to being interpreted by a Board CertifiedRadiologist, this case was examined by a computer-aided detection program(CAD). Bilateral digital mammography with tomosynthesis was performed. COMPARISON: 03/27/2022, 03/13/2021, 11/08/2019 FINDINGS: There are scattered areas of fibroglandular density. There areno suspicious masses, suspicious calcifications or secondary signs ofmalignancy within either breast. IMPRESSION No mammographic evidence of malignancy. Breast Density Category: B - Scattered areas of fibroglandular density BI-RADS: 1: Negative Follow Up Recommendation: Follow up Mamm in 1 year Side: Bilateral Those patients who are 40 years old or older will be entered into [employer] system with a target due date for their next mammogram. [employer] letter for the next mammogram will be sent to the patient. Electronically signed: 11/29/2023 6:12 PM Richard Fox M.D. Mitzi Whelan MD [facility]GRAP[facility] * DXA Bone Density (11/09/2023 4:06 PM EDT) Anatomical Region Laterality Modality N/A Dual-Engery X-ra y 11/09/2023 4:06 PM EDT Impressions 11/11/2023 8:42 AM EDT Spine BMD: Osteopenia Left femoral neck: Osteoporosis Total left hip BMD: Osteopenia Right femoral neck: Osteopenia Total right hip BMD: Osteopenia Diagnosis: Osteopenia. Electronically signed: 11/11/2023 8:42 AM Zack Evans M.D. Narrative 11/11/2023 8:42 AM EDT XR DEXA BONE DENSITY HISTORY: Osteoporosis screening without pathological fractures. MENOPAUSAL STATUS: Postmenopausal TECHNIQUE: Bone mineral density (BMD) was determined using the [employer] System. COMPARISON: There is no prior study for comparison. FINDINGS: Lumbar spine (L1-L4): BMD 0.963 g/cm2, ??T score -1.9, ??Z score -0.3 Left femoral neck: BMD 0.682 g/cm2, T score -2.6, ??Z score -0.9 Right femoral neck: BMD 0.732 g/cm2, T score -2.2, ??Z score -0.5 Total left hip: BMD 0.731 g/cm2, ??T score -2.2, ??Z score -0.7 Total right hip: BMD 0.803 g/cm2, ??T score -1.6, ??Z score -0.2 FRAX (tm) ??WHO Fracture Risk assessment Tool 10-year Fracture Risk Major Osteoporotic Fracture :...23.2% Hip Fracture:.....................6.2% Reported risk factors: History of fracture (adult) FRAX (tm) version 3.08. Fracture probability calculated for an untreated patient. ??Fracture probability may be lower if patient has received treatment. Procedure Note Zack Evans MD - 11/11/2023 XR DEXA BONE DENSITY HISTORY: Osteoporosis screening without pathological fractures. MENOPAUSAL STATUS: Postmenopausal TECHNIQUE: Bone mineral density (BMD) was determined using the [employer]. COMPARISON: There is no prior study for comparison. FINDINGS: Lumbar spine (L1-L4): BMD 0.963 g/cm2, T score -1.9, Z score -0.3 Left femoral neck: BMD 0.682 g/cm2, T score -2.6, Z score -0.9 Right femoral neck: BMD 0.732 g/cm2, T score -2.2, Z score -0.5 Total left hip: BMD 0.731 g/cm2, T score -2.2, Z score -0.7 Total right hip: BMD 0.803 g/cm2, T score -1.6, Z score -0.2 FRAX (tm) WHO Fracture Risk assessment Tool 10-year Fracture Risk Major Osteoporotic Fracture :...23.2% Hip Fracture:.....................6.2% Reported risk factors: History of fracture (adult) FRAX (tm) version 3.08. Fracture probability calculated for an untreatedpatient. Fracture probability may be lower if patient has receivedtreatment. IMPRESSION Spine BMD: Osteopenia Left femoral neck: Osteoporosis Total left hip BMD: Osteopenia Right femoral neck: Osteopenia Total right hip BMD: Osteopenia Diagnosis: Osteopenia. Electronically signed: 11/11/2023 8:42 AM Zack Evans M.D. 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 [id number] PCP - General Family Medicine 07/25/21
--- OUTSIDE RECORDS SUMMARY | 2024-03-29 09:28 | XMS_ITS ---
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 Name Role Phone CELSA BAL DO Primary Care Provider MARYELLEN Olivier [phone] Medications Medication SIG (Take, Route, Frequency, Duration) Notes Start Date End Date Status HYDROcodone-Acetamino phen 5-325 MG 1 tablet as needed Orally every 12 hours for 30 days As needed Partial Fill upon Patient Request 03/22/2024 Active Morphine Sulfate ER 15 MG 1 tablet Orally every 8 hrs for 30 days Partial Fill upon Patient Request 04/04/2024 Active Encounters Encounter Location Date Provider Diagnosis [facility] [address] [place] [phone] 03/22/2024 MARYELLENEZRA ORDAZYIFAN Other terminal clerk (current) drug therapy Z79.899 Assessments Encounter Date Diagnosis (ICD Code) Assessment Notes Treatment Notes Treatment Clinical Notes Section Notes 03/22/2024 Other [facility] (current) drug therapy (ICD-10 - Z79.899) Plan Of Treatment Medication Medication Name Sig Start Date Stop Date Notes HYDROcodone-Acetaminophe n 5-325 MG 1 tablet as needed Orally every 12 hours for 30 days 03/22/2024 Partial Fill upon Patient Request Morphine Sulfate ER 15 MG 1 tablet Orally every 8 hrs for 30 days 04/04/2024 Partial Fill upon Patient Request Next Appt Details Provider Name:MARYELLEN BYERS, 05/03/2024 03:00:00 PM, [address] [place] [address], [phone], Progress Notes * TUAN CAMPUZANO:1950 (73 yo F)Acc No.[id number]:03/22/2024 Patient:KORY GONG :1950???Age:73 Y???Sex:Female Address:[address] [place] [address], [id number] * Refills? Refill HYDROcodone-Acetaminophen Tablet, 5-325 MG, Orally, 60 Tablet, 1 tablet as needed, every 12 hours, 30 days, Refills=0 Refill Morphine Sulfate ER Tablet Extended Release, 15 MG, Orally, 90 Tablet, 1 tablet, every 8 hrs, 30 days, Refills=0 * * Date:?
== END 2024-03-29 11:09 | disposition home or self-care (01) ==
PROVIDERS: Visit Provider Hospitalist
DX: J41.8 Mixed simple and mucopurulent chronic bronchitis (principal); K21.9 Gastro-esophageal reflux disease without esophagitis; R91.8 Other nonspecific abnormal finding of lung field; R05.3 Chronic cough
CPT/HCPCS: 99214

== ENCOUNTER → 2024-03-29 08:42 | Outpatient (BNVA) | payer MEDICARE, SELFPAY | PROVIDERS: Visit Provider Hospitalist | DX: J41.8 Mixed simple and mucopurulent chronic bronchitis (principal); K21.9 Gastro-esophageal reflux disease without esophagitis; R91.8 Other nonspecific abnormal finding of lung field; R05.3 Chronic cough | CPT/HCPCS: 99212 ==